=== PATIENT | male | born 1940 | race Caucasian/White ===

== ENCOUNTER 2020-07-05 10:20 | Outpatient (CLI) | payer MEDICARE, OTHER, SELFPAY ==
--- NOTE | 2020-07-05 | ECG_ITS ---
Measurements Intervals [place] Rate: 53 P: 37 PA: 221 QRS: -62 QRSD: 180 T: 118 QT: 486 QTc: 460 Interpretive Statements SINUS BRADYCARDIA WITH FIRST DEGREE AV BLOCK LEFT AXIS DEVIATION LEFT BUNDLE BRANCH BLOCK BASELINE ARTIFACT- II, III, V4-V6 ABNORMAL ECG Electronically Signed On 07-05-2020 11:35:02 CDT by Mario Alberto Farah D.O.
--- NOTE | ~2020-07-05 | XR_ITS ---
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 TECHNIQUE: Frontal and lateral views of the chest were obtained. COMPARISON: Chest 2 views 01/30/2015 FINDINGS: A calcified right lung nodule is consistent with old granulomatous disease. There is mild s carring at the lung apices. No pleural effusion or pneumothorax. The heart size is normal. IMPRESSION: 1. No evidence of metastatic disease. Reviewed, dictated and finalized at location A.
[2020-07-05 11:16] LABS: Basophils Absolute Auto 0.1 K/mm3 (0.0-0.1); Basophils Percent Auto 0.6 % (0.2-1.2); Eosinophils Absolute Auto 0.7 K/mm3 (0-0.3); Eosinophils Percent Auto 6.4 % (0-4.4); Hematocrit 33.1 % (42.0-52.0); Hemoglobin 10.5 g/dL (14.0-18.0); Immature Granulocyte Absolute 0.02 K/mm3 (0.00-0.031); Immature Granulocyte Percent A 0.2 % (0-0.5); Lymphocytes Absolute Auto 2.94 K/mm3 (0.9-3.2); Lymphocytes Percent Auto 25.7 % (18.3-44.2); Mean Corpuscular HGB Conc 31.7 g/dl (32-36); Mean Corpuscular Hemoglobin 29.3 pg (26-34); Mean Corpuscular Volume 92.5 fl (80-100); Mean Platelet Volume 10.5 fl (7.4-10.4); Monocytes Absolute Auto 0.9 K/mm3 (0.1-0.6); Monocytes Percent Auto 7.5 % (2.6-8.5); Neutrophils Absolute Auto 6.8 K/mm3 (1.3-6.7); Neutrophils Percent Auto 59.6 % (45.5-73.1); Platelet Count Result 219 k/mm3 (150-375); Red Blood Count 3.58 M/mm3 (4.6-6.20); Red Cell Distribution Width 14.4 % (11.5-14.5); White Blood Count 11.5 K/mm3 (4.5-10.0)
[2020-07-05 11:29] LABS: Alanine Aminotransferase 18 U/L (4-50); Albumin Level 3.7 g/dL (3.5-5.1); Alkaline Phosphatase 81 U/L (38-126); Anion Gap 6 mmol/L (8-16); Aspartate Amino Transferase 23 U/L (17-59); Bilirubin,Total 0.5 mg/dL (0.2-1.3); Blood Urea Nitrogen 39 mg/dL (9-20); Calcium 8.8 mg/dL (8.4-10.2); Carbon Dioxide 21 mmol/L (22-30); Chloride 111 mmol/L (98-107); Estimated Glomerular Filt Rate 30; Glucose 87 mg/dL (75-110); Sodium 138 mmol/L (137-145)
== END 2020-07-05 10:21 | disposition home or self-care (01) ==
PROVIDERS: PCP Emergency Medicine; Visit Provider Surgery
DX: C43.61 Malignant melanoma of right upper limb, including shoulder (principal); C43.9 Malignant melanoma of skin, unspecified; C77.9 Secondary and unspecified malignant neoplasm of lymph node, unspecified; R94.31 Abnormal electrocardiogram [ECG] [EKG]; I44.7 Left bundle-branch block, unspecified; I44.0 Atrioventricular block, first degree; R00.1 Bradycardia, unspecified
CPT/HCPCS: 36415; 71046; 80053; 85025; 93005

== ENCOUNTER 2021-10-01 14:29 | Outpatient (CLI) | payer MEDICARE, OTHER, SELFPAY ==
--- NOTE | ~2021-10-01 | XR_ITS ---
XR chest 2V 10/01/2021 15:16 Indication: Shortness of breath. Hypertension. Procedure: 2 view chest Comparison: Comparison to multiple prior studies sequentially, with oldest reviewed study dated 07/30. Findings: Heart size is normal. Right basilar airspace disease. Small right pleural effusion. Left monica ng clear. No pneumothorax. There are surgical changes in the right upper thorax. The lungs are hyperinflated which is consistent with, but not diagnostic of chronic obstructive pulmo nary disease. Impression: 1: Right basilar airspace disease which may represent atelectasis or pneumonia. 2: Small right pleural effusion. Reviewed, dictated and finalized at location B. RER CONSTRUCTION OR LEAK GANG Impression: 1: Right basilar airspace disease which may represent atelectasis or pneumonia. 2: Small right pleural effusion.
[2021-10-01 15:06] LABS: Basophils Absolute Auto 0.1 K/mm3 (0.0-0.1); Basophils Percent Auto 0.8 % (0.2-1.2); Eosinophils Absolute Auto 0.4 K/mm3 (0-0.3); Eosinophils Percent Auto 5.2 % (0-4.4); Hematocrit 28.9 % (42.0-52.0); Hemoglobin 8.9 g/dL (14.0-18.0); Immature Granulocyte Absolute 0.02 K/mm3 (0.00-0.031); Immature Granulocyte Percent A 0.3 % (0-0.5); Lymphocytes Absolute Auto 1.93 K/mm3 (0.9-3.2); Lymphocytes Percent Auto 26.5 % (18.3-44.2); Mean Corpuscular HGB Conc 30.8 g/dl (32-36); Mean Corpuscular Hemoglobin 28.9 pg (26-34); Mean Corpuscular Volume 93.8 fl (80-100); Mean Platelet Volume 10.1 fl (7.4-10.4); Monocytes Absolute Auto 0.7 K/mm3 (0.1-0.6); Monocytes Percent Auto 9.1 % (2.6-8.5); Neutrophils Absolute Auto 4.2 K/mm3 (1.3-6.7); Neutrophils Percent Auto 58.1 % (45.5-73.1); Platelet Count Result 264 k/mm3 (150-375); Red Blood Count 3.08 M/mm3 (4.6-6.20); Red Cell Distribution Width 16.4 % (11.5-14.5); White Blood Count 7.3 K/mm3 (4.5-10.0)
[2021-10-01 15:18] LABS: Alanine Aminotransferase 12 U/L (4-50); Albumin Level 3.1 g/dL (3.5-5.1); Alkaline Phosphatase 82 U/L (38-126); Anion Gap 5 mmol/L (8-16); Aspartate Amino Transferase 25 U/L (17-59); Bilirubin,Total 0.3 mg/dL (0.2-1.3); Blood Urea Nitrogen 13 mg/dL (9-20); Calcium 8.2 mg/dL (8.4-10.2); Carbon Dioxide 23 mmol/L (22-30); Chloride 106 mmol/L (98-107); Estimated Glomerular Filt Rate 53; Glucose 93 mg/dL (65-110); Potassium 3.9 mmol/L (3.4-5.0); Sodium 134 mmol/L (137-145)
== END 2021-10-01 14:30 | disposition home or self-care (01) ==
LOC: ANHLAB 14:38
PROVIDERS: PCP Emergency Medicine; Visit Provider Internal Medicine
DX: R06.02 Shortness of breath (principal); J90 Pleural effusion, not elsewhere classified; R91.8 Other nonspecific abnormal finding of lung field
CPT/HCPCS: 36415; 71046; 80053; 85025

== ENCOUNTER 2021-12-03 09:35 | Observation (INO) | payer MEDICARE, OTHER, SELFPAY ==
[2021-12-03] VITALS (21 sets, daily range): BP systolic 146–189; BP diastolic 61–90; PULSE 79–106; RESP 15–23; TEMP 36.7–37.3; O2SAT 94–100; BMI 23.5
--- NOTE | ~2021-12-03 | US_ITS ---
EXAMINATION: US venous doppler [facility] DATE: 12/04/2021 09:16 INDICATION: Lower limb edema. TECHNIQUE: Grayscale ultrasound images without and with compression and Doppler ultrasound images of the bilateral lower extremity veins were obtained. COMPARISON: None. FINDINGS: The visualized portions of right common femoral vein, profunda (deep) femoral vein, femoral vein, pop liteal vein, peroneal veins, posterior tibial veins, and greater saphenous vein outflow are patent. The visualized portions of left common femoral vein, profunda femoral vein, femoral vein, popliteal v ein, peroneal veins, posterior tibial veins, and greater saphenous vein outflow are patent. IMPRESSION: 1. No deep venous thrombosis. Reviewed, dictated and finalized at location E. L MEDICINE PHYSICIAN
--- NOTE | ~2021-12-03 | XR_ITS ---
EXAMINATION: XR chest 1V portable DATE: 12/03/2021 10:29 INDICATION: Shortness of breath. TECHNIQUE: A single frontal view of the chest was obtained. COMPARISON: Chest 2 views 10/01/2021, CT abdomen and pelvis 06/17/2009 FINDINGS: There is a diffuse interstitial pattern in the lungs. There is a small right pleural effusi on. No pneumothorax. The heart size is normal. There are surgical clips overlying right chest. IMPRESSION: 1. Diffuse interstitial pattern in the lungs, consistent with mild pulmonary edema versus atypical pn eumonia. 2. Stable small right pleural effusion. Reviewed, dictated and finalized at location E. EFIER IMPRESSION: 1. Diffuse interstitial pattern in the lungs, consistent with mild pulmonary ed jeff versus atypical pneumonia. 2. Stable small right pleural effusion.
--- NOTE | ~2021-12-03 | NM_ITS ---
EXAMINATION: NM vikki stress w perfusion DATE: 12/05/2021 12:18 INDICATION: Coronary artery disease with cardiomyopathy and elevated troponin. TECHNIQUE: Rest images were obtained following intravenous administration of 10.1 mCi Tc99m tetrofosm in (Myoview). The patient was infused intravenously with Lexiscan (Regadenoson). Then, 31.7 mCi Tc99m tetrofosmin (Myoview) was administered intravenously, and stress images were obtained in supine posi tion. Patient was unable to be imaged in the prone position. Data was reconstructed into short axis a nd horizontal and vertical long axis SPECT images. Gated SPECT images were also obtained. COMPARISON: None. FINDINGS: There is a large moderate severity fixed perfusion defect consistent with infarct involving the apical, apical septal, apical superior, apical inferior, mid anterior septal and mid posterior s eptal segments. No reversible ischemia. There left ventricular enlargement with calculated end-diasto lic volume of 225 mm. There is global hypokinesis and with more focal apical septal and apical inferi or dyskinesis. Left ventricular ejection fraction measures 22%. IMPRESSION: 1. Large moderate severity nonreversible infarct as detailed above involving primarily the left anter ior descending and right coronary artery vascular distributions. No reversible ischemia. 2. Left ventricular enlargement with global hypokinesis and focal dyskinesis at the infarcted region resulting in moderate to severely decreased left ventricular ejection fraction measuring 22%. Reviewed, dictated and finalized at location A. ENTICE CARPENTER IMPRESSION: 1. Large moderate severity nonreversible infarct as detailed above involving pr imarily the left anterior descending and right coronary artery vascular distrib utions. No reversible ischemia. 2. Left ventricular enlargement with global hypokinesis and focal dyskinesis at the infarcted region resulting in moderate to severely decreased left ventricu lar ejection fraction measuring 22%.
--- NOTE | ~2021-12-03 | US_ITS ---
EXAMINATION: US renal BI DATE: 12/04/2021 09:16 INDICATION: Acute on chronic renal failure. TECHNIQUE: Multiple ultrasound grayscale images of the kidneys were obtained. COMPARISON: CT abdomen and pelvis 06/17/2009 FINDINGS: The right kidney measures 12.5 x 5.2 x 6.6 cm. The left kidney measures 11.2 x 5.8 x 7.2 cm. Left kid naren demonstrates cortical thinning and increased parenchymal echogenicity. There are cysts in the kid neys measuring up to 4.9 cm on the left. There is no hydronephrosis. The bladder is decompressed. IMPRESSION: 1. Chronic severe atrophy of left kidney. No hydronephrosis. Reviewed, dictated and finalized at location E. ACTOR AND WRINGER OPERATOR
--- NOTE | ~2021-12-03 | NM_ITS ---
EXAMINATION: NM pulmonary perfusion DATE: 12/03/2021 12:52 INDICATION: Shortness of breath. TECHNIQUE: 5.2 mCi Tc-99m MAA by intravenous route. Scintigraphic images of the chest were obtained. COMPARISON: Chest radiograph dated 10/01/2021 FINDINGS: There are moderate-sized perfusion defects without corresponding radiographic opacities involving the right anterior segment of the upper lobe and the apical segments of the bilateral upper lobes. Small perfusion defect with corresponding radiographic opacity at the posterior basal segment of the right lower lobe. IMPRESSION: 1. Intermediate probability for pulmonary embolism. Reviewed, dictated and finalized at location A. OTIST OR PROSTHETIST
--- NOTE | 2021-12-03 09:43 | ECG_ITS ---
Measurements Intervals [place] Rate: 99 P: 196 CO: 107 QRS: -41 QRSD: 185 T: 143 QT: 446 QTc: 575 Interpretive Statements SINUS OR ECTOPIC ATRIAL TACHYCARDIA LEFT AXIS DEVIATION LEFT BUNDLE BRANCH BLOCK BASELINE WANDER- II, III, AVR, AVL, AVF, V4-V6 ABNORMAL ECG Electronically Signed On 12-03-2021 10:00:[address] STENOGRAPHER by Mario Alberto Farah D.O.
--- NOTE | 2021-12-03 10:17 | ED.GENADULT ---
HPI - General Adult General Chief complaint: Shortness of Breath/Dyspnea Stated complaint: SOB Time Seen by Provider: 12/03/21 10:14 Source: patient and RN notes reviewed History of Present Illness HPI narrative: Patient is a 81 y/o male complaining of SOB for at least 2 weeks. He states that his SOB is severe and get worse with walking or any exertion. He has a cough. He has no fever or chest pain. He states that he was diagnosed with pneumonia and treated with outpatient antibiotics for 1 week. He has not been vaccinated against COVID. He smokes daily. Per EMS, his pulse ox was 82% and he was placed on NRB. Related Data Allergies Allergy/AdvReac Type Severity Reaction Status Date / Time No Known Allergies Allergy Mild Verified 12/03/21 11:25 Review of Systems Constitutional: Constitutional: Denies chills, Denies fever(s), Denies headache(s) and Denies weakness Eyes: Eyes: Denies blurry vision ENT: Denies headache(s) and Denies neck pain Cardiovascular: Cardiovascular: Denies chest pain and Reports dyspnea Respiratory: Respiratory: Reports cough and Reports dyspnea Gastrointestinal: Gastrointestinal: Denies abdominal pain, Denies diarrhea, Denies nausea and Denies vomiting Genitourinary: Genitourinary: Denies hematuria and Denies dysuria Musculoskeletal: Musculoskeletal: Denies back pain and Denies neck pain Neurologic: Denies headache(s) and Denies weakness PMFSH Past Medical History Medical History (Updated 12/03/21 @ 16:42 by Desirae Post MD) 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 CHF (congestive heart failure), NYHA class I History of CVA (cerebrovascular accident) Hypertension Hypothyroidism Surgical History Surgical History (Updated 12/03/21 @ 13:34 by Usha Melgar NP) History of coronary artery stent placement History of femoropopliteal bypass Total knee replacement status Family History Family History (Updated 12/03/21 @ 13:35 by Usha Melgar NP) Mother Parkinson disease type 9 Father Lung disease Social History Social History (Updated 12/03/21 @ 13:36 by Usha Melgar NP) Social History: 2 c 1/2 ppd retconstr concre Smoking status: Current some day smoker Exam Const: General: no acute distress and well developed Orientation/consciousness: oriented to person, oriented to place, oriented to time and patient oriented x3 HENMT: Head: normocephalic Ears: external ears normal General nose exam: Normal external nose present Eyes: General: appearance normal, both eyes and all related structures Conjunctivae: conjunctivae normal Neck: Neck: normal visual inspection and full ROM Chest: Chest palpation & inspection: normal inspection of the chest and no tenderness Resp: Effort & Inspection: normal respiratory effort Auscultation: clear to auscultation bilaterally Cardio: Rate: regular rate Rhythm: regular rhythm GI: GI Palp: No abdominal tenderness and Yes Soft to palpation Skin: General skin exam: normal color and turgor normal Neuro: General: oriented to person, oriented to place, oriented to time and patient oriented x3 Cognition (Neuro): normal cognition Extrem: General: normal to inspection, full ROM and no pedal edema Psych: Appearance: grossly normal Mental Status: mental status grossly normal Affect: normal affect Course Consultations Consultation #1: Discussed with GUY Kerr, who agrees to admit. Date: 12/03/21 Time: 13:27 Consultation #2: Discussed with Dr. Hernandes, who agrees to consult. She recommends Lovenox 1mg/kg x 1 dose. Date: 12/03/21 Time: 13:58 Vital Signs Vital signs: Vital Signs Temperature 36.8 C 12/03/21 09:44 Pulse Rate 106 H 12/03/21 09:44 Respiratory Rate 23 H 12/03/21 09:44 Blood Pressure 189/90 H 12/03/21 09:44 Pulse Oximetry 96 12/03/21 09:44 Temperature 36.7 C 12/03/21 13:49 Pulse Rate 87 12/03/21 13:49 Respiratory Rate 18 12/03/21 13:49 Blood
[2021-12-03 10:35] LABS: Basophils Percent Auto 0.3 % (0.2-1.2); Eosinophils Absolute Auto 0.3 K/mm3 (0-0.3); Hematocrit 35.6 % (42.0-52.0); Hemoglobin 10.8 g/dL (14.0-18.0); Immature Granulocyte Absolute 0.05 K/mm3 (0.00-0.031); Immature Granulocyte Percent A 0.5 % (0-0.5); Lymphocytes Absolute Auto 1.81 K/mm3 (0.9-3.2); Lymphocytes Percent Auto 16.4 % (18.3-44.2); Mean Corpuscular HGB Conc 30.3 g/dl (32-36); Mean Corpuscular Hemoglobin 26.2 pg (26-34); Mean Corpuscular Volume 86.4 fl (80-100); Mean Platelet Volume 11.2 fl (7.4-10.4); Monocytes Absolute Auto 0.3 K/mm3 (0.1-0.6); Monocytes Percent Auto 3.1 % (2.6-8.5); Neutrophils Absolute Auto 8.5 K/mm3 (1.3-6.7); Neutrophils Percent Auto 76.7 % (45.5-73.1); Platelet Count Result 188 k/mm3 (150-375); Red Blood Count 4.12 M/mm3 (4.6-6.20)
[2021-12-03 10:47] LABS: Base Excess ABG -6.1 mEq/l (+/-2.0); Device NON-REBREATHER MASK; Fractional Inspired Oxygen 100 %; HCO3 ABG 19.9 mEq/l (22.0-26.0); Modified Allen's Test Pass; Oxygen Saturation ABG 97.7 % (95.0-100.0); Oxyhemoglobin 96.5 % THb (90.0-100.0); PCO2 ABG 41.3 mmHg (35.0-45.0); PO2 ABG 111.7 mmHg (80.0-100.0); PO2 FiO2 Ratio Arterial Blood 1.12 %; Site Drawn LEFT RADIAL; Total Hemoglobin 11.7 g/dL (12.0-18.0); pH ABG 7.301 (7.350-7.450)
[2021-12-03 10:54] LABS: D Dimer 2.69 ug/mL (<0.48)
[2021-12-03 11:15] LABS: NT Pro B Type Natriuretic Pept 9510 pg/mL (5-100); Troponin I 0.146 ng/mL (0.000-0.034)
[2021-12-03 11:20] LABS: SARS-CoV-2 RNA PCR Negative
[2021-12-03 11:55] LABS: Alanine Aminotransferase 13 U/L (4-50); Albumin Level 3.4 g/dL (3.5-5.1); Alkaline Phosphatase 89 U/L (38-126); Anion Gap 7 mmol/L (8-16); Aspartate Amino Transferase 27 U/L (17-59); Bilirubin,Total 0.3 mg/dL (0.2-1.3); Blood Urea Nitrogen 17 mg/dL (9-20); Calcium 8.8 mg/dL (8.4-10.2); Carbon Dioxide 21 mmol/L (22-30); Chloride 111 mmol/L (98-107); Estimated CRCL calculation 30 ml/min; Estimated Glomerular Filt Rate 39; Glucose 208 mg/dL (65-110); Potassium 3.8 mmol/L (3.4-5.0); Sodium 139 mmol/L (137-145)
[2021-12-03] MEDS: FUROSEMIDE INJ 40 MG/4 ML VIAL IV PUSH (12:47)
--- NOTE | 2021-12-03 13:29 | PM.IMHP ---
H&P: HPI History of Present Illness Date/Time: 12/03/21 13:29 this is an 81-year-old male patient who has been complaining about shortness of breath that has gotten worse over the last 2 weeks. It gets more severe when he ambulates. He has no fever chest pain. The patient was treated with antibiotics a week ago for a diagnosis of pneumonia. The patient has not been vaccinated against COVID-19. The patient continues to smoke daily. Per EMS his pulse ox was 82% he was placed on a non-rebreather. Patient is on a nasal cannula when I assessed him in the emergency room. He is very hard of hearing and having difficulty answering the questions at times. He is negative for COVID-19. Chest x-ray was read as diffuse interstitial pattern in the lungs consistent with mild pulmonary edema versus atypical pneumonia. Stable right pleural effusion. Pulmonary perfusion imaging was read as intermediate probability for pulmonary embolism. His BMP is 9510. Troponin 0.146 with a repeat of 1.170. D-dimers 2.69. The patient was given IV Lasix and Lovenox in the emergency room. Creatinine is 1.7. His baseline is somewhere between 1.3 and 2.1. Blood glucose was 208. 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 He has 2 children. He continues to smoke 1/2 ppd. he worked in [employer]. He denies any alcohol marijuana or illicit drugs. He denies any power title attorney for healthcare. Code status full code Years smoked: 78 Smoking status: Current some day smoker Tobacco type: cigarettes Alcohol intake: current Drinks per week: 6 Substance use: never Spiritual care concerns: No Meds Home Medications and Allergies Allergies Allergy/AdvReac Type Severity Reaction Status Date / Time No Known Allergies Allergy Mild Verified 12/03/21 11:25 Vital Signs Vital Signs - 24 hr 12/03/21 09:44 12/03/21 09:46 12/03/21 10:10 Temperature 36.8 C Pulse Rate 106 H 105 H Respiratory Rate 23 H 23 H Blood Pressure 189/90 H 189/80 H Pulse Oximetry 96 100 100 12/03/21 10:15 12/03/21 10:31 12/03/21 10:35 Temperature Pulse Rate 97 95 Respiratory Rate 18 21 H Blood Pressure 146/64 H Pulse Oximetry 100 100 100 12/03/21 10:50 12/03/21 11:01 12/03/21 11:05 Temperature Pulse Rate 90 Respiratory Rate 15 Blood Pressure 153/62 H Pulse Oximetry 99 97 97 12/03/21 11:16 12/03/21 11:46 12/03/21 11:56 Temperature Pulse Rate 85 86 Respiratory Rate 18 16 Blood Pressure 152/68 H 146/61 H Pulse Oximetry 95 96 94 12/03/21 12:53 12/03/21 13:05 Temperature Pulse Rate Respiratory Rate Blood Pressure Pulse Oximetry 96 98 Exam Const: General: cooperative, comfortable, no acute distress, well developed, alert, awake and Physically active Nutritiona
--- NOTE | 2021-12-03 14:00 | PC.NURSE ---
patient states he is hungry. patient informed he has a diet order and i can order a tray of food or provide a snack. patient requests snack. snack provided.
[2021-12-03] MEDS: ENOXAPARIN 80 MG/0.8 ML SYRINGE SUB-Q (14:06)
--- NOTE | 2021-12-03 18:20 | ADMGEN ---
This patient, Angel Venegas, was admitted to IMU Room 206-02. Patient/family oriented to hospital policies and general routines including ID bracelet, bed and alarms, visiting hours, pain management, procedures, bathroom and other care routines, personal items, smoking policy, room service/diet, and visiting hours. Information on how to activate the Rapid Response Team has been discussed. Patient/Family are encouraged to report perceived risks to care and to ask questions if they do not understand what they are told or what they should do.
--- NOTE | 2021-12-03 18:34 | PM.CNCAR ---
Assessment and Plan Assessment and plan (1) Elevated troponin: Code(s): R77.8 - Other specified abnormalities of plasma proteins Status: Acute Assessment and Plan: Patient was found to have elevated troponins, with no chest pain. EKG is uninterpretable due to chronic left bundle branch block andthere ws no chest discomfort. It has been progressively worsening. I suspect the elevated troponins are nonischemic myocardial injury from the patient's hypoxia superimposed on chronic coronary artery disease, though ACS cannot be excluded. Will follow clinically. Started on Lovenox for possible ACS and also indeterminate V/Q scan. Add Aspirin and statin. (2) Acute diastolic CHF (congestive heart failure): Code(s): I50.31 - Acute diastolic (congestive) heart failure Status: Acute Assessment and Plan: Patient has acute CHF, presumably diastolic. Does not look volume overloaded, though CXR shows PVC. Received 1 dose of Lasix in the emergency room. Will give one more in a.m. BMP in a.m. Echo pending. (3) CAD (coronary artery disease): Code(s): I25.10 - Atherosclerotic heart disease of [place] coronary artery without angina pectoris Status: Inactive Assessment and Plan: Remote coronary stent. No angina. However not on any home medications either. Recommend adding at least aspirin and a statin. (4) Acute respiratory failure with hypoxia: Code(s): J96.01 - Acute respiratory failure with hypoxia Status: Acute Assessment and Plan: Likely has COPD as well as CHF. (5) Atherosclerotic vascular disease: Code(s): I70.90 - Unspecified atherosclerosis Status: Acute Assessment and Plan: Patient has poly vascular disease with carotid occlusion and stroke, coronary artery disease and peripheral vascular disease. Intact distal pulses. Apparently is not on any home medications. Add aspirin and statin. History of Present Illness History of Present Illness Consult date/time: 12/03/21 18:34 Requesting physician: Tyrese Del Valle MD Consult reason: congestive heart failure Reason For Visit: CHF Narrative: Angel Venegas is an 81-year-old white male whom I was asked to see at the request of Dr. Del Valle and Dr. Post for my advice and opinion regarding his CHF and elevated troponins in consultation. He has a history of CHF, coronary artery disease (coronary stent 20 years ago), bypass of the right lower extremity, history of stroke, 100% occlusion of the left carotid artery, type 2 diabetes, CKD stage IIIB, hypertension. (Patient denies any history of CHF or stroke). The patient apparently has been short of breath for 2 -3 weeks with a mild dry cough. He as diagnosed as pneumonia 1 week ago and prescribed antibiotics. His breathing worsened and he woke up with severe shortness of breath this morning. No chest pain, no edema. His O2 sat was 82% on admission. Troponins have gone up to 2.3. ProBNP 9500. COVID RNA test was negative. No past records available in [facility] or Care Everywhere. Patient cannot name his doctor, but sees a cancer doctor in [place] for his melanoma.. Review of Systems Constitutional: Constitutional: Reports fatigue and Reports weakness Eyes: Eyes: Reports no additional eye complaints ENT: Denies epistaxis Cardiovascular: Cardiovascular: Denies chest pain, Denies pedal edema, Denies leg edema, Denies lightheadedness and Denies palpitations Respiratory: Respiratory: Reports cough, Reports dyspnea and Reports dyspnea on exertion Gastrointestinal: Gastrointestinal: Denies abdominal pain and Denies nausea Genitourinary: Genitourinary: Denies dysuria Musculoskeletal: Musculoskeletal: Reports arthralgias and Reports stiffness Comments: Difficulty walking Integumentary/Breasts: Skin/Breast: Denies rash Neurologic: Reports system reviewed and no additional complaints, except as documented Psychiatric: Psychiatric: Denies beh
[2021-12-03 20:52] LABS: Glucose Point of Care 98 mg/dl (65-105)
[2021-12-03] MEDS: ASPIRIN 81 MG CHEWABLE TABLET PO (21:19)
[2021-12-04] VITALS (16 sets, daily range): BP systolic 130–173; BP diastolic 68–76; PULSE 61–88; RESP 12–20; TEMP 36.3–37.2; O2SAT 95–99
[2021-12-04 05:22] LABS: Basophils Absolute Auto 0.1 K/mm3 (0.0-0.1); Basophils Percent Auto 0.6 % (0.2-1.2); Eosinophils Absolute Auto 0.8 K/mm3 (0-0.3); Eosinophils Percent Auto 9.1 % (0-4.4); Hematocrit 31.7 % (42.0-52.0); Hemoglobin 9.7 g/dL (14.0-18.0); Immature Granulocyte Absolute 0.03 K/mm3 (0.00-0.031); Immature Granulocyte Percent A 0.3 % (0-0.5); Lymphocytes Absolute Auto 2.04 K/mm3 (0.9-3.2); Lymphocytes Percent Auto 22.5 % (18.3-44.2); Mean Corpuscular HGB Conc 30.6 g/dl (32-36); Mean Corpuscular Hemoglobin 26.3 pg (26-34); Mean Corpuscular Volume 85.9 fl (80-100); Mean Platelet Volume 11.2 fl (7.4-10.4); Monocytes Absolute Auto 0.8 K/mm3 (0.1-0.6); Monocytes Percent Auto 8.5 % (2.6-8.5); Neutrophils Absolute Auto 5.4 K/mm3 (1.3-6.7); Platelet Count Result 185 k/mm3 (150-375); Red Blood Count 3.69 M/mm3 (4.6-6.20); Red Cell Distribution Width 16.1 % (11.5-14.5); White Blood Count 9.1 K/mm3 (4.5-10.0)
[2021-12-04 05:29] LABS: Hemoglobin A1C 5.3 % (<5.7)
[2021-12-04 05:32] LABS: Lactic Acid Reflex 0.9 mmol/L (0.7-2.1)
[2021-12-04 05:34] LABS: Alanine Aminotransferase 10 U/L (4-50); Albumin Level 3.2 g/dL (3.5-5.1); Alkaline Phosphatase 73 U/L (38-126); Anion Gap 3 mmol/L (8-16); Aspartate Amino Transferase 27 U/L (17-59); Bilirubin,Total 0.5 mg/dL (0.2-1.3); Blood Urea Nitrogen 18 mg/dL (9-20); CRP 2.2 mg/dL (<1.0); Calcium 8.5 mg/dL (8.4-10.2); Carbon Dioxide 26 mmol/L (22-30); Chloride 109 mmol/L (98-107); Estimated CRCL calculation 27 ml/min; Estimated Glomerular Filt Rate 34; Glucose 80 mg/dL (65-110); Lactate Dehydrogenase 433 U/L (313-618); Magnesium 1.7 mg/dL (1.6-2.3); Potassium 3.7 mmol/L (3.4-5.0); Sodium 138 mmol/L (137-145)
--- NOTE | 2021-12-04 05:38 | ECG_ITS ---
Measurements Intervals [place] Rate: 84 P: 73 GA: 221 QRS: -57 QRSD: 176 T: 134 QT: 464 QTc: 550 Interpretive Statements SINUS RHYTHM WITH FIRST DEGREE AV BLOCK LEFT AXIS DEVIATION LEFT BUNDLE BRANCH BLOCK ABNORMAL ECG Electronically Signed On 12-04-2021 7:32:39 DISSOLVER OPERATOR by Mario Alberto Farah D.O.
--- NOTE | 2021-12-04 06:00 | ECHO_ITS ---
Patient Info Name: Angel Venegas Age: 81 years : 1940 Gender: Male Ht: 69 in Wt: 156 lbs BSA: 1.86 m2 HR: 85 bpm BP: 161 / 76 mmHg Exam Date: 12/04/2021 8:24 AM Exam Location: [facility] Patient Status: Outpatient Admit Date: 12/03/2021 Staff Ordering Physician: Desirae Post MD Exhaust Worker: Jamie Parker RDCS, RT Attending Provider: Tyrese Del Valle MD Referring Physician: Sincere MCCRACKEN; Exam Type: CA echo doppler color flow Study Info Indications I50.9 - Heart failure, unspecified Complete two-dimensional, color flow and Doppler transthoracic echocardiogram is performed. Strain analysis performed. Summary 1. Complete two-dimensional, color flow and Doppler transthoracic echocardiogram is performed. 2. Left ventricular systolic function is severely reduced, estimated at 20-25%. 3. Left ventricular chamber dimension is mildly enlarged. 4. There is mildly increased left ventricular wall thickness. 5. There is mild aortic valve sclerosis. 6. There is mild mitral valve regurgitation. 7. There is mild to moderate tricuspid valve regurgitation. 8. RVSP 68 mmHg. Left Ventricle Left ventricular chamber dimension is mildly enlarged. Left ventricular systolic function is severely reduced, estimated at 20-25%. There is mildly increased left ventricular wall thickness. The left ventricular diastolic function is abnormal. Global longitudinal strain is abnormal at -6 %. Right Ventricle Right ventricular chamber dimension is normal. Right ventricular systolic function is normal. Left Atria Left atrial chamber dimension is normal. Right Atria Right atrial chamber dimension is normal. Atrial Septum Intact interatrial septum visualized by color flow imaging. Aortic Valve The aortic valve is trileaflet. There is mild aortic valve sclerosis. There is no aortic valve stenosis. There is no aortic valve regurgitation. Pulmonic Valve The pulmonic valve is not well visualized. There is no pulmonic valve stenosis. There is no pulmonic regurgitation. Mitral Valve There is no mitral valve stenosis. There is mild mitral valve regurgitation. There is mild mitral valve calcification. Tricuspid Valve The tricuspid valve leaflets are normal. There is no significant tricuspid valve stenosis. There is mild to moderate tricuspid valve regurgitation. Pericardium/Pleural There is small pericardial effusion. Inferior Vena Cava Normal inferior vena cava with <50% collapse upon inspiration consistent with Empty right atrial pressure, 10 mmHg. Aorta The aortic root size at the sinus of Valsalva is normal. Left Ventricular Outflow Tract Name Value Normal LVOT 2D LVOT Diameter 2.0 cm LVOT Doppler LVOT Peak Gradient 2 mmHg LVOT Mean Gradient 1 mmHg LVOT VTI 13 cm LVOT VTI/AV VTI Ratio 0.8 LVOT Stroke Volume 40 ml LVOT CO 3.4 l/min LVOT CI 1.8 l/min/m2
[2021-12-04] MEDS: LEVOTHYROXINE SODIUM 75 MCG TABLET PO (06:16)
[2021-12-04 09:05] LABS: Glucose Point of Care 82 mg/dl (65-105)
[2021-12-04] MEDS: VITAMIN B COMPLEX CAPSULE 1 CAP BY MOUTH (10:00)
[2021-12-04] MEDS: lisinopriL 5 MG TABLET PO (10:00)
[2021-12-04] MEDS: FERROUS SULFATE 324 MG TABLET PO (10:00)
[2021-12-04] MEDS: FUROSEMIDE INJ 40 MG/4 ML VIAL IV PUSH (10:00)
[2021-12-04] MEDS: ATORVASTATIN 40 MG TABLET PO (10:00)
[2021-12-04] MEDS: ASPIRIN 81 MG CHEWABLE TABLET PO (10:00)
[2021-12-04] MEDS: RIVAROXABAN 15 MG TABLET PO (10:02)
--- NOTE | 2021-12-04 11:31 | PM.IMPN ---
Progress Note: A&P Assessment and Plan (1) Acute respiratory failure with hypoxia: Code(s): J96.01 - Acute respiratory failure with hypoxia Status: Acute Assessment and Plan: The patient does have a history of congestive heart failure. Patient initially was placed on a non-rebreather mask but easily weaned to 2 L per nasal cannula. The patient was given Lasix and an aspirin in the ED. The patient's troponin is also elevated as well. Patient has been receiving intermittent doses of Lasix with good response. His SOB/QUIROGA much improved. He is requesting discharge. Suspect respiratory failure related to CHF. He is currently on room air. (2) CHF (congestive heart failure), NYHA class I: Code(s): I50.9 - Heart failure, unspecified Status: Chronic Assessment and Plan: Patient presents with 2 week hx of SOB. CXR showing diffuse interstitial pattern in the lungs. BNP 9510. Echo showing EF 20-25% with mild valvular disease and diastolic dysfunction and elevated RVSP consistent with pulmonary HTN. He is receiving IV Lasix intermittently. His lung exam improved. He is on Lisinopril. Will add Coreg and monitor for wheezing. Cardiology following and appreciate thier input. (3) Elevated troponin: Code(s): R77.8 - Other specified abnormalities of plasma proteins Status: Acute Assessment and Plan: Troponin elevated to 2.25 and now trending down. EKG shows left bundle branch block with left axis deviation. Bundle branch block is chronic. Echo as mentioned above. Continue medical management. Concerning for ischemic etiology of his low EF in symptoms. Cardiology following appreciate their input. (4) Pulmonary emboli: Code(s): I26.99 - Other pulmonary embolism without acute cor pulmonale Status: Acute Assessment and Plan: Patient presents with SOB. Pulmonary perfusion study showing intermediate probability for PE. He was on Xarelto on admission which was continued (will renally dose). LE venous dopplers negative for DVT. Clinically better with treatment with Lasix and EF 20% so feel overall PE less likely. PE ruled out. (5) Chronic renal failure, stage 3b: Code(s): N18.32 - Chronic kidney disease, stage 3b Status: Chronic Assessment and Plan: Patient's creatinine is 1.7 on admission. A month ago, Cr was 1.3 and was 2.10 in 2015. Renal US showing severe atrophic left kidney. Cr 1.9 today and probably within his baseline. Will follow. (6) CAD (coronary artery disease): Code(s): I25.10 - Atherosclerotic heart disease of [place] coronary artery without angina pectoris Status: Acute Assessment and Plan: In 2015, Lexiscan stress test showing a large areas of severe infarct involving inferior wall, apex, and apical septal, mid anteroseptal, and mid inferoseptal segments of left ventricle as well as septal hypokinesis with EF 58%. Only on Lisinopril on admission. ASA resumed and Lipitor added. Add betabloker. (7) DM2 (diabetes mellitus, type 2): Code(s): E11.9 - Type 2 diabetes mellitus without complications Status: Chronic Assessment and Plan: A1c 5.3. The patient's blood glucose was reviewed on 2/3 Patient is diet-controlled diabetic. Glucose remains well controlled. Continue AccuCheks covering with sliding scale. Hypoglycemia protocol available as needed. Continue to monitor. (8) Hypertension: Code(s): I10 - Essential (primary) hypertension Status: Chronic Assessment and Plan: Patient's blood pressure was reviewed on 23 Blood pressure remains elevated. Will continue current medications. (9) Atherosclerotic vascular disease: Code(s): I70.90 - Unspecified atherosclerosis Status: Acute Assessment and Plan: Patient with known PAD with chronic occlusion of the left ICA. ASA resumed and Lipitor added. (10) Hypothyroidism: Code(s): E03.9 - Hypothyro
[2021-12-04 12:24] LABS: Glucose Point of Care 161 mg/dl (65-105)
--- NOTE | 2021-12-04 13:12 | PM.PNCARD ---
Progress Note: A&P Assessment and Plan (1) Elevated troponin: Code(s): R77.8 - Other specified abnormalities of plasma proteins Status: Acute Assessment and Plan: Patient was found to have elevated troponins, with no chest pain. EKG is uninterpretable due to chronic left bundle branch block and there ws no chest discomfort. It has been progressively worsening. I suspect the elevated troponins are nonischemic myocardial injury from the patient's hypoxia superimposed on chronic coronary artery disease, though ACS cannot be excluded. Will follow clinically. Started on Lovenox for possible ACS and also indeterminate V/Q scan. Added Aspirin and statin. Pt's Adrienne 2014 showed large areas of infarction but nml EF 58%. Now EF 20-25%. Rec ischemia evaluation. Access by cath may be difficult due to vascular disease; sounds like cath 2005 was done via the brachial approach. Also pt's GFR is 34, so at risk for complications w/ cath. Will order Adrienne for tmr. If significant ischemia, consider cath. (2) Acute combined systolic and diastolic congestive heart failure: Code(s): I50.41 - Acute combined systolic (congestive) and diastolic (congestive) heart failure Status: Acute Assessment and Plan: Patient has acute systolic CHF, no (known) prior history. Improved after 2 doses furosemide IVP on low-dose lisinopril; let's see if he can tolerate Entreso instead. Coreg 3.125 mg BID started. Add spironolactone later if pt tolerates Entresto? Ischemic cardiomyopathy; May be related to old [place]'s r/o new ischemia. (3) CAD (coronary artery disease): Code(s): I25.10 - Atherosclerotic heart disease of [place] coronary artery without angina pectoris Status: Acute Assessment and Plan: Remote coronary stent. No angina. Added ASA, statin; cont carvedilol etc. Previously was seen by Dr. Bowers but pt has not followed up. (4) Acute respiratory failure with hypoxia: Code(s): J96.01 - Acute respiratory failure with hypoxia Status: Acute Assessment and Plan: Likely has COPD as well as CHF. (5) Atherosclerotic vascular disease: Code(s): I70.90 - Unspecified atherosclerosis Status: Acute Assessment and Plan: Patient has poly vascular disease with carotid occlusion and stroke, coronary artery disease and peripheral vascular disease. Intact distal pulses. He is taking Xarelto for uncertain reasons. May be a candidate for low-dose Xarelto 2.5 mg BID + ASA, depending on Xarelto indication. Will see f we can find any old records. Added aspirin and statin. Subjective Date/time seen: 12/04/21 13:12 Interval history: Patient admitted with congestive heart failure. EF 2014 was 58% but is now 20-25%. History of CAD, stent around 2005. Troponins up to 2.3. No chest pain. Peripheral vascular disease s/p RLE bypass, carotid disease. Patient takes Xarelto 20 mg daily--he's not sure why. 12/03/2021 Initial Consultation: Acute systolic heart failure, agreed with diuresis. Elevated troponins, possibly nonischemic myocardial injury due to hypoxemia on chronic CAD though ACS cannot be excluded. Progressive QUIROGA over the last 2 or 3 weeks and lack of anginal sx is more suggestive of CHF rather than ACS. REcomended lovenox for a couple of days, and I added aspirin and statin. Smoker, has stable COPD. : Feeling better, off O2, chronic SOB, no edema or CP. 2015 Lexiscan: Large areas of severe infarct involving the inferior wall, apex, apical septal, mid anteroseptal and mid inferior septal segments, EF 58%. EKG 12/04/2021 at 6:35 a.m. shows NSR rate 84, first-degree AV block, LBBB (chronic) Review of Systems Constitutional: Constitutional: Reports weakness Eyes: Eyes: Reports no additional eye complaints ENT: Denies epistaxis Cardiovascular: Cardiovascular: Denies chest pain, Denies pedal edema and Denies leg edema Respiratory: Respirator
--- NOTE | 2021-12-04 13:29 | PCDIET ---
Pt screened in for MST 4. Per EMR, pt is unsure of unintentional wt loss, unsure of how much, and does not have a decrease appetite. Visited with pt who reports that he is unsure of wt loss but may have lost approximately 4-5lbs but is unsure of time frame. No past weight reported in EMR. Current nutrition is a heart healthy diet with reported intake of 100%. Pt reports that he doesn't have any problems swallowing but will sometimes have problems with chewing as he is missing teeth. RDN placed orders for Frozen Nutritional Treat ONCE PER DAY to provide an additional 300kcal and 9g of protein. Pt is tolerating current diet with adequate intake. No wt loss reported at this time. Agree with diet orders at this time. No nutritional intervention at this time. Will follow up in 7 days.
[2021-12-04] MEDS: carvediloL 3.125 MG TABLET PO ×2 (13:38→20:50)
[2021-12-04 16:20] LABS: Glucose Point of Care 106 mg/dl (65-105)
[2021-12-04 21:08] LABS: Glucose Point of Care 111 mg/dl (65-105)
[2021-12-05] VITALS (12 sets, daily range): BP systolic 136–160; BP diastolic 61–79; PULSE 62–79; RESP 14–20; TEMP 36.3–36.6; O2SAT 98–99
--- NOTE | 2021-12-05 00:01 | EST_ITS ---
Patient Info Name: Angel Venegas Age: 81 years : 1940 Gender: Male Ht: 69 in Wt: 156 lbs BSA: 1.86 m2 HR: 71 bpm BP: 154 / 84 mmHg Heart Rhythm: Sinus Rhythm Exam Date: 12/05/2021 10:07 AM Exam Location: [facility] Patient Status: Outpatient Admit Date: 12/03/2021 Staff Ordering Physician: Isabelle Hernandes MD Attending Provider: Tyrese Del Valle MD Exercise Technologist: Allison Boston, [place] Nurse: BRITTNEY LARSEN Exam Type: [facility] stress vikki w NM Study Info Indications - CHEST PAIN A regadenoson stress test was performed. Summary 1. Normal sinus rhythm. 2. Left bundle branch block. 3. Non-diagnostic ECG due to left bundle branch block. 4. Clinically uneventful but nondiagnostic Lexiscan stress test because of left bundle branch block. 5. Myocardial perfusion imaging exam to be dictated by the Radiology Department. Protocol: Lexiscan Stress ECG Details Stage: REST Duration (min): 2 min : 51 sec HR (bpm): 70 SBP (mmHg): 157 DBP (mmHg): 78 Stage: REST Duration (min): 3 min : 35 sec HR (bpm): 72 SBP (mmHg): 154 DBP (mmHg): 84 Stage: REST Duration (min): 8 min : 7 sec HR (bpm): 71 SBP (mmHg): 154 DBP (mmHg): 84 Stage: STAGE 1 Duration (min): 1 min : 0 sec HR (bpm): 64 SBP (mmHg): 163 DBP (mmHg): 87 Stage: RECOVERY Duration (min): 1 min : 0 sec HR (bpm): 85 SBP (mmHg): 163 DBP (mmHg): 87 Stage: RECOVERY Duration (min): 2 min : 0 sec HR (bpm): 87 SBP (mmHg): 163 DBP (mmHg): 87 Stage: RECOVERY Duration (min): 3 min : 0 sec HR (bpm): 80 SBP (mmHg): 172 DBP (mmHg): 72 Stage: RECOVERY Duration (min): 3 min : 9 sec HR (bpm): 81 SBP (mmHg): 172 DBP (mmHg): 72 Rest HR: 71 bpm Peak HR: 87 bpm Rest Sys BP: 154 mmHg Peak Sys BP: 172 mmHg Max Pred HR: 138 bpm % Max Pred HR: 63 % Target HR: 117 bpm Max RPP: 14,964 bpm*mmHg Total Time: 1 min : 0 sec Rest Godoy BP: 84 mmHg Peak Godoy BP: 72 mmHg Total Dose: 0.4 mg Resting ECG Normal sinus rhythm. Left bundle branch block. Stress ECG Non-diagnostic ECG due to left bundle branch block. Report Signatures
[2021-12-05] MEDS: LEVOTHYROXINE SODIUM 75 MCG TABLET PO (05:50)
[2021-12-05 05:59] LABS: Hematocrit 32.9 % (42.0-52.0); Hemoglobin 10.3 g/dL (14.0-18.0); Mean Corpuscular HGB Conc 31.3 g/dl (32-36); Mean Corpuscular Hemoglobin 26.8 pg (26-34); Mean Corpuscular Volume 85.5 fl (80-100); Mean Platelet Volume 11.6 fl (7.4-10.4); Platelet Count Result 207 k/mm3 (150-375); Red Blood Count 3.85 M/mm3 (4.6-6.20); Red Cell Distribution Width 16.3 % (11.5-14.5); White Blood Count 9.6 K/mm3 (4.5-10.0)
[2021-12-05 06:11] LABS: Albumin Level 3.1 g/dL (3.5-5.1); Anion Gap 3 mmol/L (8-16); Blood Urea Nitrogen 20 mg/dL (9-20); Calcium 8.2 mg/dL (8.4-10.2); Carbon Dioxide 27 mmol/L (22-30); Chloride 105 mmol/L (98-107); Estimated CRCL calculation 27 ml/min; Estimated Glomerular Filt Rate 34; Glucose 76 mg/dL (65-110); Magnesium 1.7 mg/dL (1.6-2.3); Phosphorus 3.9 mg/dL (2.5-4.5); Potassium 3.4 mmol/L (3.4-5.0); Sodium 135 mmol/L (137-145)
[2021-12-05 08:36] LABS: Glucose Point of Care 75 mg/dl (65-105)
[2021-12-05] MEDS: carvediloL 3.125 MG TABLET PO (09:06)
[2021-12-05] MEDS: FERROUS SULFATE 324 MG TABLET PO (09:06)
[2021-12-05] MEDS: VITAMIN B COMPLEX CAPSULE 1 CAP BY MOUTH (09:07)
[2021-12-05] MEDS: ATORVASTATIN 40 MG TABLET PO (09:07)
[2021-12-05] MEDS: ASPIRIN 81 MG CHEWABLE TABLET PO (09:07)
--- NOTE | 2021-12-05 10:27 | PM.PNCARD ---
Progress Note: A&P Assessment and Plan (1) Elevated troponin: Code(s): R77.8 - Other specified abnormalities of plasma proteins Status: Acute Assessment and Plan: Patient was found to have elevated troponins, with no chest pain. EKG is uninterpretable due to chronic left bundle branch block and there ws no chest discomfort. It has been progressively worsening. elevated troponins likely secondary to nonischemic myocardial injury from the patient's hypoxia superimposed on chronic coronary artery disease, though ACS cannot be excluded. Started on Lovenox for possible ACS and also indeterminate V/Q scan. Added Aspirin and statin. Pt's Adrienne 2014 showed large areas of infarction but nml EF 58%. Now EF 20-25%. Rec ischemia evaluation. Access by cath may be difficult due to vascular disease; sounds like cath 2005 was done via the brachial approach. Also pt's GFR is 34, so at risk for complications w/ cath. Lexiscan stress test performed this morning. Further recommendations to follow based on findings. (2) Acute combined systolic and diastolic congestive heart failure: Code(s): I50.41 - Acute combined systolic (congestive) and diastolic (congestive) heart failure Status: Acute Assessment and Plan: Patient has acute systolic CHF, no (known) prior history. Improved after 2 doses furosemide IVP Coreg 3.125 mg BID started. Add spironolactone 25mg daily Ischemic cardiomyopathy; May be related to old [place]'s r/o new ischemia. (3) CAD (coronary artery disease): Code(s): I25.10 - Atherosclerotic heart disease of [place] coronary artery without angina pectoris Status: Acute Assessment and Plan: Remote coronary stent. No angina. Added ASA, statin; cont carvedilol etc. Previously was seen by Dr. Bowers but pt has not followed up. (4) Acute respiratory failure with hypoxia: Code(s): J96.01 - Acute respiratory failure with hypoxia Status: Acute Assessment and Plan: Likely has COPD as well as CHF. (5) Atherosclerotic vascular disease: Code(s): I70.90 - Unspecified atherosclerosis Status: Acute Assessment and Plan: Patient has poly vascular disease with carotid occlusion and stroke, coronary artery disease and peripheral vascular disease. Intact distal pulses. He is taking Xarelto for uncertain reasons. May be a candidate for low-dose Xarelto 2.5 mg BID + ASA, depending on Xarelto indication. Will see if we can find any old records. Continue ASA, statin Subjective Date/time seen: 12/05/21 10:27 Interval history: Patient admitted with congestive heart failure. EF 2014 was 58% but is now 20-25%. History of CAD, stent around 2005. Troponins up to 2.3. No chest pain. Peripheral vascular disease s/p RLE bypass, carotid disease. Patient takes Xarelto 20 mg daily--he's not sure why. 12/03/2021 Initial Consultation: Acute systolic heart failure, agreed with diuresis. Elevated troponins, possibly nonischemic myocardial injury due to hypoxemia on chronic CAD though ACS cannot be excluded. Progressive QUIROGA over the last 2 or 3 weeks and lack of anginal sx is more suggestive of CHF rather than ACS. REcomended lovenox for a couple of days, and I added aspirin and statin. Smoker, has stable COPD. : Feeling better, off O2, chronic SOB, no edema or CP. 2015 Lexiscan: Large areas of severe infarct involving the inferior wall, apex, apical septal, mid anteroseptal and mid inferior septal segments, EF 58%. EKG 12/04/2021 at 6:35 a.m. shows NSR rate 84, first-degree AV block, LBBB (chronic) 12/05/2021: Feels good, no complaints...denies chest pain or shortness of breath. Review of Systems Constitutional: Constitutional: Reports fatigue and Reports weakness Eyes: Eyes: Reports no additional eye complaints ENT: Denies epistaxis Cardiovascular: Cardiovascular: Denies chest pain, Denies pedal edema, Denies leg edema, Denie
[2021-12-05 14:32] LABS: Glucose Point of Care 99 mg/dl (65-105)
--- NOTE | 2021-12-05 15:36 | PM.DS ---
DS: Admitting Diagnosis Discharge Date 12/05/21 Admitting Diagnosis Shortness of Breath/Dyspnea DS: Discharge Diagnosis Discharge Diagnosis (1) Acute respiratory failure with hypoxia: Code(s): J96.01 - Acute respiratory failure with hypoxia Status: Acute Assessment and Plan: Patient presents with SOB and initially was placed on a non-rebreather mask but easily weaned to 2 L per nasal cannula. The patient has a history of congestive heart failure. The patient was given Lasix and an aspirin in the ED. The patient's troponin were elevated as well. Patient received intermittent doses of Lasix with good response. His SOB/QUIROAG was much improved. He was easily weaned to room air. (2) CHF (congestive heart failure), NYHA class I: Code(s): I50.9 - Heart failure, unspecified Status: Chronic Assessment and Plan: Patient presents with 2 week hx of SOB. CXR showing diffuse interstitial pattern in the lungs. BNP 9510. Echo showing EF 20-25% with mild valvular disease and diastolic dysfunction and elevated RVSP consistent with pulmonary HTN. He received IV Lasix intermittently. His lung exam improved. Patient with Ac/Ch systolic and diastolic CHF. He was on Lisinopril but changed to Entresto and Coreg added. Cardiology consulted and followed along; appreciate their input. (3) Elevated troponin: Code(s): R77.8 - Other specified abnormalities of plasma proteins Status: Acute Assessment and Plan: Troponin elevated to 2.25 before trending down. EKG showed left bundle branch block with left axis deviation. Bundle branch block is chronic. Echo as mentioned above. Lexiscan stress test showing large moderate severity nonreversible infarct (as detailed in the report) involving primarily the left anterior descending and right coronary artery vascular distributions with EF about 22%. No reversible ischemia. Plan to continue medical management. (4) Pulmonary emboli: Code(s): I26.99 - Other pulmonary embolism without acute cor pulmonale Status: Acute Assessment and Plan: Patient presents with SOB. Pulmonary perfusion study showing intermediate probability for PE. Patient was unsure why he was on Xarelto. LE venous dopplers negative for DVT. Clinically better with treatment with Lasix and EF 20% so overall felt acute PE less likely. Spoke with dtr. Patient on Xarelto for PEs diagnosed about 2-3 months ago. (5) Chronic renal failure, stage 3b: Code(s): N18.32 - Chronic kidney disease, stage 3b Status: Chronic Assessment and Plan: Patient's creatinine is 1.7 on admission. A month ago, Cr was 1.3 and was 2.10 in 2015. Renal US showing severe atrophic left kidney. Cr 1.9 today and stable; probably within his baseline. (6) CAD (coronary artery disease): Code(s): I25.10 - Atherosclerotic heart disease of [place] coronary artery without angina pectoris Status: Acute Assessment and Plan: In 2015, Lexiscan stress test showing a large areas of severe infarct involving inferior wall, apex, and apical septal, mid anteroseptal, and mid inferoseptal segments of left ventricle as well as septal hypokinesis with EF 58%. Only on Lisinopril on admission. ASA resumed and Lipitor and Coreg added. Further adjustment per Cardiology. Repeat stress test as above. (7) DM2 (diabetes mellitus, type 2): Code(s): E11.9 - Type 2 diabetes mellitus without complications Status: Chronic Assessment and Plan: A1c 5.3. Patient is diet-controlled diabetic. The patient's blood glucose was monitored closely with AccuCheks covering with sliding scale. Hypoglycemia protocol was available as needed. Glucose remained well controlled. (8) Hypertension: Code(s): I10 - Essential (primary) hypertension Status: Chronic Assessment and Plan: Patient's blood pressure was elevated early on but improved with the adjustment of his medicati
[2021-12-05 17:21] LABS: Glucose Point of Care 123 mg/dl (65-105)
== END 2021-12-05 16:31 | disposition home or self-care (01) ==
LOC: ANHED 10:34 → ANHIMU 15:30
PROVIDERS: Nurse Practitioner; Admitting Provider Internal Medicine; Emergency Provider Emergency Medicine; Visit Provider Internal Medicine
DX: J96.01 Acute respiratory failure with hypoxia (principal); I13.0 Hypertensive heart and chronic kidney disease with heart failure and stage 1 through stage 4 chronic kidney disease, or unspecified chronic kidney disease; I50.43 Acute on chronic combined systolic (congestive) and diastolic (congestive) heart failure; I26.99 Other pulmonary embolism without acute cor pulmonale; N18.32 Chronic kidney disease, stage 3b; I70.611 Atherosclerosis of nonbiological bypass graft(s) of the extremities with intermittent claudication, right leg; I65.22 Occlusion and stenosis of left carotid artery; I25.10 Atherosclerotic heart disease of native coronary artery without angina pectoris; I44.7 Left bundle-branch block, unspecified; E11.22 Type 2 diabetes mellitus with diabetic chronic kidney disease; E03.9 Hypothyroidism, unspecified; R77.8 Other specified abnormalities of plasma proteins; C43.61 Malignant melanoma of right upper limb, including shoulder; Z79.01 Long term (current) use of anticoagulants; Z20.822 Contact with and (suspected) exposure to COVID-19; Z95.5 Presence of coronary angioplasty implant and graft; Z87.442 Personal history of urinary calculi; Z96.652 Presence of left artificial knee joint; Z86.73 Personal history of transient ischemic attack (TIA), and cerebral infarction without residual deficits; Z72.0 Tobacco use
CPT/HCPCS: 36415; 36600; 71045; 76775; 78452; 78580; 80053; 80069; 82728; 82805; 82948; 83036; 83605; 83615; 83735; 83880; 84443; 84484; 85025; 85027; 85380; 86140; 93005; 93017; 93306; 93970; 96372; 96374; 96376; 99285; A9270; A9502; A9540; C9803; G0378; J1650; J1940; J2785; U0003; U0005

== ENCOUNTER 2021-12-29 13:37 | Outpatient (CLI) | payer MEDICARE, OTHER, SELFPAY ==
--- NOTE | ~2021-12-29 | US_ITS ---
EXAMINATION: US carotid duplex BI DATE: 12/29/2021 14:10 INDICATION: Left frontal lobe infarct. TECHNIQUE: Grayscale, color Doppler, and pulsed Doppler images of the cervical carotid arteries were obtained. The degree of vessel stenosis is placed in one of the following categories: normal, <50%, 5 0-69%, >=70% but less than near-occlusion, near-occlusion, or total occlusion. Note that percent sten osis relative to normal distal artery lumen diameter is indirectly measured from velocity measurement s as described by Adalberto, et al. Radiology 2003; 229:340-346. COMPARISON: Ultrasound 02/25/2016 FINDINGS: RIGHT: The right common carotid artery (CCA) peak systolic velocity (PSV) is 83 cm/s. The right internal car otid artery (ICA) PSV is 96 cm/s. The right ICA end-diastolic velocity (EDV) is 22 cm/s. The right IC A/CCA PSV ratio is 1.2. Grayscale and color Doppler images yield an estimate of <50% diameter reducti on from plaque in the ICA. There is antegrade flow in the right vertebral artery. LEFT: The left CCA PSV is 66 cm/s. Grayscale and color Doppler images demonstrate total occlusion of the IC A. There is antegrade flow in the left vertebral artery. IMPRESSION: 1. <50% stenosis in the right internal carotid artery. 2. 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 Reviewed, dictated and finalized at location A. [employer]
== END 2021-12-29 13:38 | disposition home or self-care (01) ==
PROVIDERS: PCP Emergency Medicine; Visit Provider Nurse Practitioner Adult Health
DX: I65.23 Occlusion and stenosis of bilateral carotid arteries (principal); Z86.73 Personal history of transient ischemic attack (TIA), and cerebral infarction without residual deficits
CPT/HCPCS: 93880

== ENCOUNTER 2022-05-23 04:16 | Emergency (ER) | payer MEDICARE, OTHER, SELFPAY ==
--- NOTE | ~2022-05-23 | XR_ITS ---
XR chest 2V 05/23/2022 04:59 Indication: Shortness of breath Procedure: 2 view chest Comparison: Comparison to multiple prior studies sequentially, with oldest reviewed study dated 11/2014. Findings: Heart size normal. There is improving interstitial edema. Small pleural effusions. No pneum othorax. Impression: 1: Improving mild interstitial edema. Reviewed, dictated and finalized at location A. Impression: 1: Improving mild interstitial edema.
[2022-05-23 04:18] VITALS: BP 186/88; PULSE 86; RESP 16; TEMP 36.4; O2SAT 96
--- NOTE | 2022-05-23 04:28 | ED.GENADULT ---
HPI - General Adult General Chief complaint: Shortness of Breath/Dyspnea Stated complaint: SOB Time Seen by Provider: 05/23/22 04:21 History of Present Illness HPI narrative: 81-year-old male presenting to the emergency department for evaluation of shortness of breath. Patient states he was at home when he developed shortness of breath. Patient has a history of congestive heart failure. Patient states that he has had a cough over the last few days. Patient called EMS due to the severity of her symptoms. Patient was saturating at 85% on room air. Patient was treated with a breathing treatment and upon arrival to the emergency department he is saturating 97 to 98% on room air. Patient states he does feel improved at this time. Patient denies any chest pain. Related Data Home Medications Medication Instructions Recorded Confirmed B Complex-Vitamin B12 2,500 mcg BYMOUTH DAILY 12/03/21 12/03/21 ferrous sulfate 325 mg (65 mg 325 mg PO DAILY 12/03/21 12/03/21 iron) tablet levothyroxine 75 mcg tablet 75 mcg PO DAILY 12/03/21 12/03/21 rivaroxaban 20 mg tablet (Xarelto) 20 mg PO DAILY 12/03/21 12/03/21 Allergies Allergy/AdvReac Type Severity Reaction Status Date / Time No Known Allergies Allergy Mild Verified 12/03/21 11:25 Review of Systems Review of Systems: CONSTITUTIONAL: Denies fever, chills, or sweats. EYES: Denies visual changes, redness, or discharge. ENT: Denies rhinorrhea, congestion, sore throat, or otalgia. CARDIOVASCULAR: Denies chest pain, palpitations, or edema. RESPIRATORY: See HPI GASTROINTESTINAL: Denies abdominal pain, nausea, vomiting, or diarrhea. GENITOURINARY: Denies dysuria or hematuria. SKIN: Denies rash or itching. MUSCULOSKELETAL: Denies back pain, joint pain, or myalgia. NEUROLOGIC: Denies headache, numbness, or weakness. 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 Carotid artery occlusion 100% occluded left internal carotid artery. 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 He has 2 children. He continues to smoke 1/2 ppd. he worked in [employer]. He denies any alcohol marijuana or illicit drugs. He denies any [employer]. Code status full code Years smoked: 78 Smoking status: Current some day smoker Tobacco type: cigarettes Alcohol intake: current Drinks per week: 6 Substance use: never Spiritual care concerns: No Exam Narrative: APPEARANCE: Well appearing, no pain, no distress, well-nourished. HEAD: normocephalic, atraumatic. EYES: PERRLA/EOMI, conjunctivae clear. NOSE: Normal no drainage NECK: Supple. No adenopathy, no masses. RESPIRATORY: Airway patent, breath sounds diminished. CARDIOVASCULAR: Regular rate and rhythm without murmurs rubs or gallops. ABDOMINAL: Soft, nontender, nondistended, normal bowel sounds MUSCULOSKELETAL: Moves a
[2022-05-23 04:29] VITALS: PULSE 82; O2SAT 97
[2022-05-23 04:43] LABS: Basophils Absolute Auto 0.1 K/mm3 (0.0-0.1); Basophils Percent Auto 0.6 % (0.2-1.2); Eosinophils Absolute Auto 0.9 K/mm3 (0-0.3); Eosinophils Percent Auto 7.2 % (0-4.4); Hematocrit 33.2 % (42.0-52.0); Hemoglobin 10.1 g/dL (14.0-18.0); Immature Granulocyte Absolute 0.04 K/mm3 (0.00-0.031); Immature Granulocyte Percent A 0.3 % (0-0.5); Lymphocytes Absolute Auto 1.95 K/mm3 (0.9-3.2); Lymphocytes Percent Auto 15.4 % (18.3-44.2); Mean Corpuscular HGB Conc 30.4 g/dl (32-36); Mean Corpuscular Hemoglobin 29.2 pg (26-34); Mean Platelet Volume 11.1 fl (7.4-10.4); Monocytes Absolute Auto 0.6 K/mm3 (0.1-0.6); Monocytes Percent Auto 4.7 % (2.6-8.5); Neutrophils Absolute Auto 9.1 K/mm3 (1.3-6.7); Neutrophils Percent Auto 71.8 % (45.5-73.1); Platelet Count Result 195 k/mm3 (150-375); Red Blood Count 3.46 M/mm3 (4.6-6.20); White Blood Count 12.6 K/mm3 (4.5-10.0)
[2022-05-23 04:53] LABS: Alanine Aminotransferase 20 U/L (6-50); Albumin Level 3.7 g/dL (3.5-5.1); Alkaline Phosphatase 91 U/L (38-126); Anion Gap 9 mmol/L (8-16); Aspartate Amino Transferase 38 U/L (17-59); Bilirubin,Total 0.3 mg/dL (0.2-1.3); Blood Urea Nitrogen 26 mg/dL (9-20); Calcium 8.3 mg/dL (8.4-10.2); Carbon Dioxide 24 mmol/L (22-30); Chloride 114 mmol/L (98-107); Estimated CRCL calculation 29 ml/min; Estimated Glomerular Filt Rate 36; Glucose 170 mg/dL (65-110); Potassium 3.7 mmol/L (3.4-5.0); Sodium 147 mmol/L (137-145)
[2022-05-23 05:02] LABS: NT Pro B Type Natriuretic Pept 6930 pg/mL (5-100)
[2022-05-23 05:20] LABS: SARS-CoV-2 RNA PCR Negative
[2022-05-23 06:30] VITALS: BP 135/62; PULSE 72; RESP 16; O2SAT 98
--- NOTE | 2022-05-23 10:16 | ECG_ITS ---
Measurements Intervals [employer] Rate: 81 P: 74 IL: 233 QRS: -52 QRSD: 181 T: 124 QT: 456 QTc: 532 Interpretive Statements SINUS RHYTHM WITH FIRST DEGREE AV BLOCK LEFT AXIS DEVIATION LEFT BUNDLE BRANCH BLOCK BASELINE ARTIFACT- II, III, AVR, AVL, AVF, V4-V5 ABNORMAL ECG Electronically Signed On 05-23-2022 16:50:07 CDT by Mario Alberto Farah D.O.
== END 2022-05-23 06:30 | disposition home or self-care (01) ==
PROVIDERS: Emergency Provider Emergency Medicine; PCP Emergency Medicine
DX: R06.00 Dyspnea, unspecified (principal); Z20.822 Contact with and (suspected) exposure to COVID-19; I25.10 Atherosclerotic heart disease of native coronary artery without angina pectoris; D64.9 Anemia, unspecified; E11.22 Type 2 diabetes mellitus with diabetic chronic kidney disease; I13.0 Hypertensive heart and chronic kidney disease with heart failure and stage 1 through stage 4 chronic kidney disease, or unspecified chronic kidney disease; N18.32 Chronic kidney disease, stage 3b; I50.9 Heart failure, unspecified; E11.51 Type 2 diabetes mellitus with diabetic peripheral angiopathy without gangrene; I73.9 Peripheral vascular disease, unspecified; E03.9 Hypothyroidism, unspecified; Z85.820 Personal history of malignant melanoma of skin; Z86.73 Personal history of transient ischemic attack (TIA), and cerebral infarction without residual deficits; Z87.442 Personal history of urinary calculi; Z98.49 Cataract extraction status, unspecified eye; Z95.5 Presence of coronary angioplasty implant and graft; Z96.653 Presence of artificial knee joint, bilateral; Z79.01 Long term (current) use of anticoagulants; Z79.82 Long term (current) use of aspirin; F17.210 Nicotine dependence, cigarettes, uncomplicated; I44.0 Atrioventricular block, first degree; I44.7 Left bundle-branch block, unspecified
CPT/HCPCS: 36415; 71046; 80053; 83880; 85025; 93005; 99283; C9803; U0003; U0005

== ENCOUNTER 2022-08-14 11:45 | Inpatient (IN) | payer MEDICARE, OTHER, SELFPAY ==
[2022-08-14] VITALS (24 sets, daily range): BP systolic 151–211; BP diastolic 52–98; PULSE 69–113; RESP 13–22; TEMP 36.5–36.8; O2SAT 94–100; BMI 23.3
--- NOTE | ~2022-08-14 | XR_ITS ---
EXAMINATION: XR chest 2V DATE: 08/14/2022 12:25 INDICATION: Shortness of breath. TECHNIQUE: Frontal and lateral views of the chest were obtained. COMPARISON: Chest 2 views 05/23/2022 FINDINGS: The lungs are hyperexpanded, consistent with emphysema. [place] B-lines are noted, consisten t with mild pulmonary edema. There are small pleural effusions. No pneumothorax. The heart size is no rmal. There are surgical clips in right sternoclavicular region and right axilla. IMPRESSION: 1. Mild pulmonary edema. 2. Small pleural effusions. 3. Emphysema. Reviewed, dictated and finalized at location A.
--- NOTE | 2022-08-14 11:59 | ECG_ITS ---
Measurements Intervals [place] Rate: 82 P: 78 [place]: 225 QRS: -51 QRSD: 178 T: 132 QT: 462 QTc: 541 Interpretive Statements SINUS RHYTHM WITH FIRST DEGREE AV BLOCK LEFT AXIS DEVIATION LEFT BUNDLE BRANCH BLOCK ABNORMAL ECG COMPARED TO ECG 05/23/2022 04:22:33 NO SIGNIFICANT CHANGES Electronically Signed On 08-15-2022 15:02:15 CDT by Thong Bowers M.D.
[2022-08-14 12:05] LABS: Basophils Absolute Auto 0.1 K/mm3 (0.0-0.1); Basophils Percent Auto 0.8 % (0.2-1.2); Eosinophils Absolute Auto 0.8 K/mm3 (0-0.3); Eosinophils Percent Auto 9.7 % (0-4.4); Hematocrit 37.9 % (42.0-52.0); Hemoglobin 12.1 g/dL (14.0-18.0); Immature Granulocyte Absolute 0.01 K/mm3 (0.00-0.031); Immature Granulocyte Percent A 0.1 % (0-0.5); Lymphocytes Absolute Auto 2.55 K/mm3 (0.9-3.2); Lymphocytes Percent Auto 32.9 % (18.3-44.2); Mean Corpuscular HGB Conc 31.9 g/dl (32-36); Mean Corpuscular Hemoglobin 29.7 pg (26-34); Mean Corpuscular Volume 93.1 fl (80-100); Mean Platelet Volume 11.2 fl (7.4-10.4); Monocytes Absolute Auto 0.5 K/mm3 (0.1-0.6); Monocytes Percent Auto 5.9 % (2.6-8.5); Neutrophils Absolute Auto 3.9 K/mm3 (1.3-6.7); Neutrophils Percent Auto 50.6 % (45.5-73.1); Platelet Count Result 197 k/mm3 (150-375); Red Blood Count 4.07 M/mm3 (4.6-6.20); Red Cell Distribution Width 16.1 % (11.5-14.5); White Blood Count 7.8 K/mm3 (4.5-10.0)
--- NOTE | 2022-08-14 12:08 | ED.GENADULT ---
HPI - General Adult General Chief complaint: Shortness of Breath/Dyspnea Stated complaint: DIFFICULTY BREATHING Time Seen by Provider: 08/14/22 12:03 Source: RN notes reviewed History of Present Illness HPI narrative: Patient presents emergency department from home for shortness of breath. Patient states that he woke up approximately 2 hours ago and felt short of breath. He states that that time he called EMS when EMS arrived the patient been noted to have an O2 sat initially 89% but is now in the 90s on room air states that he uses inhaler with minimal relief states he has a history of COPD he denies any fevers or chills he denies a cough he denies chest pain abdominal pain nausea vomiting or any other symptoms states he does not feel short of breath at this time Related Data Home Medications Medication Instructions Recorded Confirmed B Complex-Vitamin B12 2,500 mcg BYMOUTH DAILY 12/03/21 12/03/21 ferrous sulfate 325 mg (65 mg 325 mg PO DAILY 12/03/21 12/03/21 iron) tablet levothyroxine 75 mcg tablet 75 mcg PO DAILY 12/03/21 12/03/21 rivaroxaban 20 mg tablet (Xarelto) 20 mg PO DAILY 12/03/21 12/03/21 Allergies Allergy/AdvReac Type Severity Reaction Status Date / Time No Known Allergies Allergy Mild Verified 08/14/22 11:52 Review of Systems Review of Systems: Gen.: Denies fevers or chills ENT: Denies congestion Respiratory: See HPI CV: Denies chest pain or palpitations GI: Denies abdominal pain nausea, emesis or diarrhea Musculoskeletal: Denies back pain or muscle pain Neuro: Denies numbness, tingling, weakness or focal weakness Skin: Denies rash Except as documented, all other systems reviewed and negative [facility] Past Medical History Medical History 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 Carotid artery occlusion 100% occluded left internal carotid artery. 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 He has 2 children. He continues to smoke 1/2 ppd. he worked in [employer]. He denies any alcohol marijuana or illicit drugs. He denies any power defense attorney for healthcare. Code status full code Years smoked: 78 Smoking status: Current some day smoker Tobacco type: cigarettes Alcohol intake: current Drinks per week: 6 Substance use: never Spiritual care concerns: No Exam Narrative: APPEARANCE: No acute distress, nontoxic, resting in bed EYES: EOMI HEENT: Normocephalic, atraumatic, OMM RESPIRATORY: No respiratory distress Clear to auscultation bilaterally with no rhonchi wheezing or rales. CARDIOVASCULAR: Regular rate and rhythm without murmurs rubs or gallops. ABDOMINAL: Soft, nontender, nondistended, no rebound or guarding MUSCULOSKELETAl: Moves all extremities. No clubbing, cyanosis 2+ edema in the bilateral lower extremities. NEURO: Awake and alert. Following commands, speech normal, no focal deficits SKIN:: Warm, dry. No
[2022-08-14 12:15] LABS: Alanine Aminotransferase 18 U/L (6-50); Albumin Level 3.9 g/dL (3.5-5.1); Alkaline Phosphatase 88 U/L (38-126); Anion Gap 8 mmol/L (8-16); Aspartate Amino Transferase 36 U/L (17-59); Bilirubin,Total 0.6 mg/dL (0.2-1.3); Blood Urea Nitrogen 21 mg/dL (9-20); Calcium 8.4 mg/dL (8.4-10.2); Carbon Dioxide 23 mmol/L (22-30); Chloride 108 mmol/L (98-107); Estimated CRCL calculation 28 ml/min; Estimated Glomerular Filt Rate 36; Glucose 189 mg/dL (65-110); Potassium 4.3 mmol/L (3.4-5.0); Sodium 139 mmol/L (137-145)
[2022-08-14 12:45] LABS: NT Pro B Type Natriuretic Pept 7260 pg/mL (5-100); Troponin I 0.049 ng/mL (0.000-0.034)
[2022-08-14 12:58] LABS: SARS-CoV-2 RNA PCR Negative
[2022-08-14] MEDS: FUROSEMIDE INJ 40 MG/4 ML VIAL 20 MG IV PUSH (13:19)
[2022-08-14 17:32] LABS: Troponin I 0.071 ng/mL (0.000-0.034)
[2022-08-14] MEDS: hydrALAZINE HCL 20 MG/ML VIAL 10 MG IV PUSH (18:15)
--- NOTE | 2022-08-14 18:53 | PM.IMHP ---
H&P: HPI History of Present Illness Date/Time: 08/14/22 18:53 Chief Complaint: difficulty breathing Narrative: this is a 82-year-old male patient who came to the emergency room with complaints of shortness of breath. He has a history of CHF, chronic renal failure, and coronary artery disease. The patient stated that he woke up about 2 hours before he came to the emergency room and felt short of breath. Patient's O2 saturations were reported as 89% when EMS arrived. However the patient was in the 90s when he came to the emergency room on room air. Patient had no fever chills or cough. He states he has been taking his medications last echo was on 12/04/2021 and was reported to have a 20-25% ejection fraction. His chest x-ray from today was read as mild pulmonary edema. Small pleural effusion. Emphysema. The patient is currently on room air. The patient was given Lasix in the emergency room. His blood pressure remained elevated so I ordered hydralazine for him. His creatinine is listed as 1.8 which is his baseline. His troponin was 0.049 and then 0.071. The patient has had chronically elevated troponins in the past. These levels are lower than previously listed. patient's BNP is 7260. He is negative for COVID. The patient is being admitted for observation status on the date of service of 08/14/2022. Review of Systems Review of Systems: See HPI All systems reviewed & are unremarkable except as noted in HPI and below Constitutional: Constitutional: Reports as per HPI and Reports no additional constitutional complaints Eyes: Eyes: Reports as per HPI and Reports no additional eye complaints ENT: Reports system reviewed and no additional complaints, except as documented and Reports Normal hearing present Cardiovascular: Cardiovascular: Reports no additional cardiovascular complaints Respiratory: Respiratory: Reports no additional respiratory complaints and Reports no additional respiratory complaints Gastrointestinal: Gastrointestinal: Reports as per HPI and Reports no additional gastrointestinal complaints Musculoskeletal: Musculoskeletal: Reports no additional musculoskeletal complaints Integumentary/Breasts: Skin/Breast: Reports system reviewed and no additional complaints, except as docu and Reports as per HPI Neurologic: Reports system reviewed and no additional complaints, except as documented, Reports as per HPI and Reports Normal hearing present Psychiatric: Psychiatric: Reports no additional psychiatric complaints and Reports as per HPI Endocrine: Endocrine: Reports no additional endocrine complaints Hematologic/Lymphatic: Hematologic/Lymphatic: Reports no additional hematologic/lymphatic complaints Allergic/Immunologic: Allergic/Immunologic: Reports no additional allergic/immunologic complaints [facility] Past Medical History Medical History 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 Carotid artery occlusion 100% occluded left internal carotid artery. 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
[2022-08-14 19:55] LABS: Troponin I 0.088 ng/mL (0.000-0.034)
[2022-08-14 22:23] LABS: Glucose Point of Care 129 mg/dl (65-105)
[2022-08-14] MEDS: lisinopriL 5 MG TABLET PO (22:31)
[2022-08-14] MEDS: APIXABAN 2.5 MG TABLET PO (22:31)
[2022-08-14] MEDS: ATORVASTATIN 40 MG TABLET PO (22:31)
[2022-08-15] VITALS (11 sets, daily range): BP systolic 120–185; BP diastolic 48–83; PULSE 68–87; RESP 14–20; TEMP 36.4–36.7; O2SAT 96–100
[2022-08-15 04:44] LABS: Basophils Absolute Auto 0.1 K/mm3 (0.0-0.1); Basophils Percent Auto 0.7 % (0.2-1.2); Eosinophils Absolute Auto 0.8 K/mm3 (0-0.3); Eosinophils Percent Auto 9.5 % (0-4.4); Hematocrit 32.8 % (42.0-52.0); Hemoglobin 10.5 g/dL (14.0-18.0); Immature Granulocyte Absolute 0.02 K/mm3 (0.00-0.031); Immature Granulocyte Percent A 0.2 % (0-0.5); Lymphocytes Absolute Auto 1.65 K/mm3 (0.9-3.2); Lymphocytes Percent Auto 20.6 % (18.3-44.2); Mean Corpuscular Hemoglobin 29.7 pg (26-34); Mean Corpuscular Volume 92.9 fl (80-100); Mean Platelet Volume 11.2 fl (7.4-10.4); Monocytes Absolute Auto 0.8 K/mm3 (0.1-0.6); Monocytes Percent Auto 10.4 % (2.6-8.5); Neutrophils Absolute Auto 4.7 K/mm3 (1.3-6.7); Neutrophils Percent Auto 58.6 % (45.5-73.1); Nucleated Red Blood Cells Perc 0.4 % (0.0-0.2); Platelet Count Result 169 k/mm3 (150-375); Red Blood Count 3.53 M/mm3 (4.6-6.20); Red Cell Distribution Width 16.3 % (11.5-14.5)
[2022-08-15 04:56] LABS: Alanine Aminotransferase 13 U/L (6-50); Albumin Level 3.1 g/dL (3.5-5.1); Alkaline Phosphatase 75 U/L (38-126); Anion Gap 11 mmol/L (8-16); Aspartate Amino Transferase 24 U/L (17-59); Bilirubin,Total 0.5 mg/dL (0.2-1.3); Blood Urea Nitrogen 24 mg/dL (9-20); Calcium 8.2 mg/dL (8.4-10.2); Carbon Dioxide 25 mmol/L (22-30); Chloride 104 mmol/L (98-107); Estimated CRCL calculation 27 ml/min; Estimated Glomerular Filt Rate 34; Glucose 82 mg/dL (65-110); Magnesium 1.8 mg/dL (1.6-2.3); Phosphorus 4.1 mg/dL (2.5-4.5); Potassium 3.3 mmol/L (3.4-5.0); Sodium 140 mmol/L (137-145)
[2022-08-15 04:58] LABS: Hemoglobin A1C 5.8 % (<5.7)
[2022-08-15] MEDS: LEVOTHYROXINE SODIUM 75 MCG TABLET PO (06:34)
[2022-08-15 08:55] LABS: Glucose Point of Care 91 mg/dl (65-105)
[2022-08-15] MEDS: lisinopriL 5 MG TABLET PO (09:18)
[2022-08-15] MEDS: ATORVASTATIN 40 MG TABLET PO (09:19)
[2022-08-15] MEDS: APIXABAN 2.5 MG TABLET PO ×2 (09:19→17:44)
[2022-08-15] MEDS: FUROSEMIDE INJ 40 MG/4 ML VIAL 20 MG IV PUSH ×2 (09:19→17:43)
[2022-08-15 12:59] LABS: Glucose Point of Care 88 mg/dl (65-105)
[2022-08-15 15:21] LABS: Total Triiodothyronine (T3) 0.89 NG/ML (0.97-1.69)
--- NOTE | 2022-08-15 15:41 | PM.IMPN ---
Progress Note: A&P Assessment and Plan (1) Acute combined systolic and diastolic congestive heart failure: Code(s): I50.41 - Acute combined systolic (congestive) and diastolic (congestive) heart failure Status: Acute Assessment and Plan: - continue with IV Lasix. - consult Cardiology. - patient had an echo on 12/04/2021 and was read as the following? 1. Complete two-dimensional, color flow and Doppler transthoracic echocardiogram is performed. ? 2. Left ventricular systolic function is severely reduced, estimated at 20-25%. ? 3. Left ventricular chamber dimension is mildly enlarged. ? 4. There is mildly increased left ventricular wall thickness. ? 5. There is mild aortic valve sclerosis. ? 6. There is mild mitral valve regurgitation. ? 7. There is mild to moderate tricuspid valve regurgitation. ? 8. RVSP 68 mmHg. -continue with IV Lasix please continue to monitor his renal function. -continue with lisinopril. Please continue to monitor his renal function. 08/15/2022 interval history: patient is 82-year-old male history of acute on chronic combined systolic diastolic congestive heart failure patient ejection fraction was 20-25% patient presented with complaint of shortness of breath with elevated BNP 7260 most likely patient has acute on chronic combined systolic diastolic congestive heart failure, on last discharge in December of this patient was discharged home [place] however patient is taking lisinopril in states, will diurese the patient with IV Lasix 20 mg b.i.d. and will monitor, patient daughter is present in the I answered all her questions, will have a PT OT evaluate the patient patient will benefit going to rehab. (2) Chronic renal failure, stage 3b: Code(s): N18.32 - Chronic kidney disease, stage 3b Status: Chronic Assessment and Plan: -. The patient has a creatinine of 1.8 which is his baseline. And a GFR 36. (3) DM2 (diabetes mellitus, type 2): Code(s): E11.9 - Type 2 diabetes mellitus without complications Status: Chronic Assessment and Plan: -Accu-Cheks AC and HS. -his blood sugar was 189 today. -check A1c. (4) Hypertension: Code(s): I10 - Essential (primary) hypertension Status: Chronic Assessment and Plan: -continue with lisinopril. -p.r.n. hydralazine. (5) Hypothyroidism: Code(s): E03.9 - Hypothyroidism, unspecified Status: Chronic Assessment and Plan: Continue with levothyroxine Check thyroid level Subjective Date/time seen: 08/15/22 15:41 HPI-Narrative: ?this is a 82-year-old male patient who came to the emergency room with complaints of shortness of breath.? He has a history of CHF, chronic renal failure, and coronary artery disease.? The patient stated that he woke up about 2 hours before he came to the emergency room and felt short of breath.? Patient's O2 saturations were reported as 89% when EMS arrived.? However the patient was in the 90s when he came to the emergency room on room air.? Patient had no fever chills or cough.? He states he has been taking his medications last echo was on? 12/04/2021 and was reported to have a 20-25%? ejection fraction.? His chest x-ray from today was read as mild pulmonary edema.? Small pleural effusion.? Emphysema.? The patient is currently on room air.? The patient was given Lasix in the emergency room.? His blood pressure remained elevated so I ordered hydralazine for him.? His creatinine is listed as 1.8 which is his baseline.? His troponin was 0.049 and then 0.071.? The patient has had chronically elevated troponins in the past.? These levels are lower than previously listed. patient's BNP is 7260.? He is negative for COVID.? The patient is being admitted for observation status on the date of service of 08/14/2022. 08/15/2022 interval history: patient is 82-year-old male history of acute on chronic combined systolic diastolic congestive heart failure patient ejection fr
--- NOTE | 2022-08-15 16:00 | PC.NURSE ---
This patient, Angel Venegas, was received from IMU on 08/15/22 at 1600. Patient/family oriented to unit policies and routines
--- NOTE | 2022-08-15 16:00 | PC.NURSE ---
This patient, Angel Venegas, was transferred to [facility] on 08/15/22 at 1559. Personal belongings sent with patient. Report given to Allen TAPIA. Appropriate documentation sent with patient.
[2022-08-15 17:29] LABS: Glucose Point of Care 94 mg/dl (65-105)
[2022-08-16] VITALS (8 sets, daily range): BP systolic 131–159; BP diastolic 64–73; PULSE 65–82; RESP 18–20; TEMP 35.9–36.6; O2SAT 95–99
[2022-08-16 00:34] LABS: Glucose Point of Care 110 mg/dl (65-105)
[2022-08-16] MEDS: LEVOTHYROXINE SODIUM 75 MCG TABLET PO (07:00)
[2022-08-16 08:44] LABS: Glucose Point of Care 167 mg/dl (65-105)
[2022-08-16] MEDS: lisinopriL 5 MG TABLET PO (08:59)
[2022-08-16] MEDS: APIXABAN 2.5 MG TABLET PO ×2 (08:59→17:39)
[2022-08-16] MEDS: ATORVASTATIN 40 MG TABLET PO (08:59)
[2022-08-16 10:51] LABS: Albumin Level 3.3 g/dL (3.5-5.1); Anion Gap 9 mmol/L (8-16); Blood Urea Nitrogen 25 mg/dL (9-20); Calcium 8.3 mg/dL (8.4-10.2); Carbon Dioxide 27 mmol/L (22-30); Chloride 102 mmol/L (98-107); Estimated CRCL calculation 28 ml/min; Estimated Glomerular Filt Rate 36; Glucose 138 mg/dL (65-110); Potassium 3.3 mmol/L (3.4-5.0); Sodium 138 mmol/L (137-145)
[2022-08-16 10:56] LABS: Hematocrit 33.8 % (42.0-52.0); Hemoglobin 10.8 g/dL (14.0-18.0); Mean Corpuscular Hemoglobin 28.8 pg (26-34); Mean Corpuscular Volume 90.1 fl (80-100); Platelet Count Result 172 k/mm3 (150-375); Red Blood Count 3.75 M/mm3 (4.6-6.20); Red Cell Distribution Width 16.1 % (11.5-14.5); White Blood Count 6.9 K/mm3 (4.5-10.0)
[2022-08-16 12:06] LABS: Glucose Point of Care 91 mg/dl (65-105)
--- NOTE | 2022-08-16 14:08 | PM.IMPN ---
Progress Note: A&P Assessment and Plan (1) Acute combined systolic and diastolic congestive heart failure: Code(s): I50.41 - Acute combined systolic (congestive) and diastolic (congestive) heart failure Status: Acute Assessment and Plan: - continue with IV Lasix. - consult Cardiology. - patient had an echo on 12/04/2021 and was read as the following? 1. Complete two-dimensional, color flow and Doppler transthoracic echocardiogram is performed. ? 2. Left ventricular systolic function is severely reduced, estimated at 20-25%. ? 3. Left ventricular chamber dimension is mildly enlarged. ? 4. There is mildly increased left ventricular wall thickness. ? 5. There is mild aortic valve sclerosis. ? 6. There is mild mitral valve regurgitation. ? 7. There is mild to moderate tricuspid valve regurgitation. ? 8. RVSP 68 mmHg. -continue with IV Lasix please continue to monitor his renal function. -continue with lisinopril. Please continue to monitor his renal function. 08/16/2022 interval history: patient is 82-year-old male history of acute on chronic combined systolic diastolic congestive heart failure patient ejection fraction was 20-25% patient presented with complaint of shortness of breath with elevated BNP 7260 most likely patient has acute on chronic combined systolic diastolic congestive heart failure, on last discharge in December of this patient was discharged home on [place] however patient is taking lisinopril instead, will diurese the patient with IV Lasix 20 mg b.i.d. and will monitor, will cardiac ECHO, on 08/15 patient daughter was present in the room, I answered all her questions, will have a PT OT evaluate the patient patient will benefit going to rehab. (2) Chronic renal failure, stage 3b: Code(s): N18.32 - Chronic kidney disease, stage 3b Status: Chronic Assessment and Plan: -. The patient has a creatinine of 1.8 which is his baseline. And a GFR 36. (3) DM2 (diabetes mellitus, type 2): Code(s): E11.9 - Type 2 diabetes mellitus without complications Status: Chronic Assessment and Plan: -Accu-Cheks AC and HS. -his blood sugar was 189 today. -check A1c. (4) Hypertension: Code(s): I10 - Essential (primary) hypertension Status: Chronic Assessment and Plan: -continue with lisinopril. -p.r.n. hydralazine. (5) Hypothyroidism: Code(s): E03.9 - Hypothyroidism, unspecified Status: Chronic Assessment and Plan: Continue with levothyroxine Check thyroid level Subjective Date/time seen: 08/16/22 14:08 08/16/2022 interval history: patient is 82-year-old male history of acute on chronic combined systolic diastolic congestive heart failure patient ejection fraction was 20-25% patient presented with complaint of shortness of breath with elevated BNP 7260 most likely patient has acute on chronic combined systolic diastolic congestive heart failure, on last discharge in December of this patient was discharged home on [place] however patient is taking lisinopril instead, will diurese the patient with IV Lasix 20 mg b.i.d. and will monitor, will cardiac ECHO, on 08/15 patient daughter was present in the room, I answered all her questions, will have a PT OT evaluate the patient patient will benefit going to rehab. Review of Systems Review of Systems: All systems reviewed & are unremarkable except as noted in HPI and below Exam Narrative: Patient is comfortable, NAD HEENT: eyes are clear and none icteric LUNGS: bilateral fair air entry with rales and rhonchi HEART: RR S1S2 ABD: BS+, Soft and nontender Lower extremities: no edema SKIN: nonjaundiced Neuro: grossly intact. Objective Data Vital Signs Vital Signs: Vital Signs - 24 hr 08/15/22 16:10 08/15/22 16:00 08/15/22 20:00 Temperature 97.5 F L 97.9 F Pulse Rate 71 73 71 Respiratory Rate 16 20 Blood Pressure 147/83 H 154/74 H Pulse Oximetry 98 100 Oxygen Narcisa
[2022-08-16 17:31] LABS: Glucose Point of Care 80 mg/dl (65-105)
[2022-08-16 21:11] LABS: Glucose Point of Care 126 mg/dl (65-105)
[2022-08-17] VITALS (7 sets, daily range): BP systolic 148–162; BP diastolic 61–67; PULSE 60–70; RESP 16–20; TEMP 36.6–37; O2SAT 99
--- NOTE | 2022-08-17 | ECHO_ITS ---
Patient Info Name: Angel Venegas Age: 82 years : 1940 Gender: Male Ht: 69 in Wt: 158 lbs BSA: 1.87 m2 HR: 73 bpm BP: 162 / 67 mmHg Heart Rhythm: Sinus Rhythm Technical Quality: Fair Exam Date: 08/17/2022 9:31 AM Exam Location: [facility] Pulmonary Exam Room: 346 Patient Status: Inpatient Admit Date: 08/15/2022 Staff Ordering Physician: Ortega Parks MD Email Administrator: Yaneli Rincon RDCS Attending Provider: Angle Mariee DO Exam Type: CA echo doppler color flow Study Info Indications - chf Complete two-dimensional, color flow and Doppler transthoracic echocardiogram is performed. Summary 1. Complete two-dimensional, color flow and Doppler transthoracic echocardiogram is performed. 2. Left ventricular chamber dimension is moderately enlarged. 3. Left ventricular systolic function is severely reduced, estimated at 20-25%. 4. The anterior wall, apex and apical septal segments are akinetic. 5. Left atrial chamber dimension is mildly enlarged. 6. There is mild aortic valve sclerosis. 7. There is mild mitral valve regurgitation. 8. Compared with December of this year no significant difference. Left Ventricle Left ventricular chamber dimension is moderately enlarged. Left ventricular systolic function is severely reduced, estimated at 20-25%. The left ventricular diastolic function is grade I diastolic dysfunction. The anterior wall, apex and apical septal segments are akinetic. Right Ventricle Right ventricular chamber dimension is normal. Left Atria Left atrial chamber dimension is mildly enlarged. Right Atria Right atrial chamber dimension is normal. Aortic Valve The aortic valve is trileaflet. There is mild aortic valve sclerosis. Pulmonic Valve The pulmonic valve is not well visualized. Mitral Valve The mitral valve has normal leaflets. There is mild mitral valve regurgitation. Tricuspid Valve The tricuspid valve leaflets are normal. There is mild tricuspid valve regurgitation. Pericardium/Pleural The pericardium appears normal. Aorta The aortic root size at the sinus of Valsalva is normal. Left Ventricular Outflow Tract Name Value Normal LVOT 2D LVOT Diameter 2.1 cm LVOT Doppler LVOT Peak Gradient 3 mmHg LVOT Mean Gradient 2 mmHg LVOT VTI 20 cm LVOT VTI/AV VTI Ratio 0.8 LVOT Stroke Volume 68 ml LVOT CO 12.4 l/min LVOT CI 6.6 l/min/m2 Pulmonic Valve Name Value Normal PV Doppler PV Peak Gradient 3 mmHg Mitral Valve Name Value Normal
[2022-08-17 05:42] LABS: Hematocrit 33.6 % (42.0-52.0); Hemoglobin 10.8 g/dL (14.0-18.0); Mean Corpuscular HGB Conc 32.1 g/dl (32-36); Mean Corpuscular Volume 90.1 fl (80-100); Mean Platelet Volume 11.6 fl (7.4-10.4); Platelet Count Result 180 k/mm3 (150-375); Red Blood Count 3.73 M/mm3 (4.6-6.20); Red Cell Distribution Width 15.9 % (11.5-14.5); White Blood Count 8.4 K/mm3 (4.5-10.0)
[2022-08-17] MEDS: LEVOTHYROXINE SODIUM 75 MCG TABLET PO (05:43)
[2022-08-17 05:56] LABS: Albumin Level 3.3 g/dL (3.5-5.1); Anion Gap 10 mmol/L (8-16); Blood Urea Nitrogen 25 mg/dL (9-20); Calcium 8.1 mg/dL (8.4-10.2); Carbon Dioxide 27 mmol/L (22-30); Chloride 103 mmol/L (98-107); Estimated CRCL calculation 26 ml/min; Estimated Glomerular Filt Rate 34; Glucose 81 mg/dL (65-110); Phosphorus 3.7 mg/dL (2.5-4.5); Potassium 3.4 mmol/L (3.4-5.0); Sodium 140 mmol/L (137-145)
[2022-08-17 07:35] LABS: Glucose Point of Care 103 mg/dl (65-105)
[2022-08-17] MEDS: APIXABAN 2.5 MG TABLET PO (08:07)
[2022-08-17] MEDS: ATORVASTATIN 40 MG TABLET PO (08:08)
[2022-08-17] MEDS: lisinopriL 5 MG TABLET PO (08:08)
[2022-08-17 11:46] LABS: Glucose Point of Care 91 mg/dl (65-105)
--- NOTE | 2022-08-17 14:16 | PM.DS ---
DS: Admitting Diagnosis Discharge Date 08/17/2022 Admitting Diagnosis ?difficulty breathing DS: Discharge Diagnosis Discharge Diagnosis (1) Acute combined systolic and diastolic congestive heart failure: Code(s): I50.41 - Acute combined systolic (congestive) and diastolic (congestive) heart failure Status: Acute Assessment and Plan: - continue with IV Lasix. - consult Cardiology. - patient had an echo on 12/04/2021 and was read as the following? 1. Complete two-dimensional, color flow and Doppler transthoracic echocardiogram is performed. ? 2. Left ventricular systolic function is severely reduced, estimated at 20-25%. ? 3. Left ventricular chamber dimension is mildly enlarged. ? 4. There is mildly increased left ventricular wall thickness. ? 5. There is mild aortic valve sclerosis. ? 6. There is mild mitral valve regurgitation. ? 7. There is mild to moderate tricuspid valve regurgitation. ? 8. RVSP 68 mmHg. -continue with IV Lasix please continue to monitor his renal function. -continue with lisinopril. Please continue to monitor his renal function. 08/16/2022 interval history: patient is 82-year-old male history of acute on chronic combined systolic diastolic congestive heart failure patient ejection fraction was 20-25% patient presented with complaint of shortness of breath with elevated BNP 7260 most likely patient has acute on chronic combined systolic diastolic congestive heart failure, on last discharge in December of this patient was discharged home on [place] however patient is taking lisinopril instead, will diurese the patient with IV Lasix 20 mg b.i.d. and will monitor, will cardiac ECHO, on 08/15 patient daughter was present in the room, I answered all her questions, will have a PT OT evaluate the patient patient will benefit going to rehab. (2) Chronic renal failure, stage 3b: Code(s): N18.32 - Chronic kidney disease, stage 3b Status: Chronic Assessment and Plan: -. The patient has a creatinine of 1.8 which is his baseline. And a GFR 36. (3) DM2 (diabetes mellitus, type 2): Code(s): E11.9 - Type 2 diabetes mellitus without complications Status: Chronic Assessment and Plan: -Accu-Cheks AC and HS. -his blood sugar was 189 today. -check A1c. (4) Hypertension: Code(s): I10 - Essential (primary) hypertension Status: Chronic Assessment and Plan: -continue with lisinopril. -p.r.n. hydralazine. (5) Hypothyroidism: Code(s): E03.9 - Hypothyroidism, unspecified Status: Chronic Assessment and Plan: Continue with levothyroxine Check thyroid level DS: Summary Hospital Course Reason for hospitalization: Chief Complaint: ?difficulty breathing Narrative: ?this is a 82-year-old male patient who came to the emergency room with complaints of shortness of breath.? He has a history of CHF, chronic renal failure, and coronary artery disease.? The patient stated that he woke up about 2 hours before he came to the emergency room and felt short of breath.? Patient's O2 saturations were reported as 89% when EMS arrived.? However the patient was in the 90s when he came to the emergency room on room air.? Patient had no fever chills or cough.? He states he has been taking his medications last echo was on? 12/04/2021 and was reported to have a 20-25%? ejection fraction.? His chest x-ray from today was read as mild pulmonary edema.? Small pleural effusion.? Emphysema.? The patient is currently on room air.? The patient was given Lasix in the emergency room.? His blood pressure remained elevated so I ordered hydralazine for him.? His creatinine is listed as 1.8 which is his baseline.? His troponin was 0.049 and then 0.071.? The patient has had chronically elevated troponins in the past.? These levels are lower than previously listed. patient's BNP is 7260.? He is negative for COVID.? The patient is being admitted for observation status on the date of
== END 2022-08-17 16:48 | disposition home or self-care (01) | DRG 291 ==
LOC: ANHED 13:30 → ANHIMU 14:31 → ANH3MED 08-15 15:44
PROVIDERS: Emergency Medicine; Nurse Practitioner; Admitting Provider Student in an Organized Health Care Education/Training Program; Emergency Provider Emergency Medicine; PCP Emergency Medicine; Visit Provider Family Medicine
DX: I13.0 Hypertensive heart and chronic kidney disease with heart failure and stage 1 through stage 4 chronic kidney disease, or unspecified chronic kidney disease (principal); I50.41 Acute combined systolic (congestive) and diastolic (congestive) heart failure; Z20.822 Contact with and (suspected) exposure to COVID-19; D63.1 Anemia in chronic kidney disease; E11.22 Type 2 diabetes mellitus with diabetic chronic kidney disease; E11.51 Type 2 diabetes mellitus with diabetic peripheral angiopathy without gangrene; E03.9 Hypothyroidism, unspecified; F17.210 Nicotine dependence, cigarettes, uncomplicated; H54.7 Unspecified visual loss; I25.10 Atherosclerotic heart disease of native coronary artery without angina pectoris; I08.3 Combined rheumatic disorders of mitral, aortic and tricuspid valves; J43.9 Emphysema, unspecified; N18.32 Chronic kidney disease, stage 3b; Z95.5 Presence of coronary angioplasty implant and graft; Z86.73 Personal history of transient ischemic attack (TIA), and cerebral infarction without residual deficits; Z85.820 Personal history of malignant melanoma of skin; Z98.49 Cataract extraction status, unspecified eye; Z96.652 Presence of left artificial knee joint; Z87.442 Personal history of urinary calculi
CPT/HCPCS: 36415; 71046; 80053; 80069; 82948; 83036; 83735; 83880; 84100; 84439; 84443; 84480; 84484; 85025; 85027; 93005; 93306; 96374; 96375; 96376; 97161; 97165; 99285; A9270; C9803; G0378; J0360; J1940; U0003; U0005

== ENCOUNTER 2022-08-24 10:21 | Emergency (ER) | payer MEDICARE, OTHER, SELFPAY ==
[2022-08-24] VITALS (14 sets, daily range): BP systolic 161–227; BP diastolic 58–100; PULSE 85–93; RESP 16–24; TEMP 36.8; O2SAT 93–100
--- NOTE | ~2022-08-24 | XR_ITS ---
EXAMINATION: XR chest 1V portable DATE: 08/24/2022 12:05 INDICATION: Hypertension. COPD. TECHNIQUE: AP view of the chest was obtained. COMPARISON: Chest radiograph dated 08/14/2022 under hyperexpanded consistent with provided history of COPD. FINDINGS: Mild increased interstitial pattern and a few peripheral Chichi B-lines in the bilateral lower lung z ones consistent with mild pulmonary edema. In addition there is a persistent hazy airspace opacities in the right lower lung zone and blunting at the bilateral costophrenic angles consistent with small right and tiny left pleural effusions. No pneumothorax. Heart size is normal. Surgical clips at the r ight axilla and supraclavicular region. IMPRESSION: 1. Mild pulmonary edema in the lower lung zones. 2. No significant change in small right and tiny left pleural effusions with associated basilar atele ctasis versus less likely pneumonia. 2. Emphysema. Reviewed, dictated and finalized at location A. IMPRESSION: 1. Mild pulmonary edema in the lower lung zones. 2. No significant change in small right and tiny left pleural effusions with as sociated basilar atelectasis versus less likely pneumonia. 2. Emphysema.
--- NOTE | 2022-08-24 10:30 | ECG_ITS ---
Measurements Intervals [place] Rate: 91 P: 173 [place]: 190 QRS: -54 QRSD: 186 T: 123 QT: 444 QTc: 548 Interpretive Statements SINUS RHYTHM LEFT AXIS DEVIATION LEFT BUNDLE BRANCH BLOCK ABNORMAL ECG COMPARED TO ECG 08/14/2022 11:59:04 FIRST-DEGREE AV BLOCK IS NOT APPRECIATED. Electronically Signed On 08-24-2022 16:13:48 CDT by Thong Bowers M.D.
[2022-08-24] MEDS: IPRATROPIUM BR 0.02% INH SOLN 0.5 MG/2.5 ML VIAL 1 MG INHALATION (10:41)
[2022-08-24] MEDS: ALBUTEROL SULFATE NEB 2.5 MG/3 ML INH 15 MG INHALATION (10:41)
[2022-08-24 10:42] LABS: Basophils Absolute Auto 0.1 K/mm3 (0.0-0.1); Basophils Percent Auto 0.5 % (0.2-1.2); Eosinophils Absolute Auto 0.9 K/mm3 (0-0.3); Hematocrit 36.6 % (42.0-52.0); Hemoglobin 11.3 g/dL (14.0-18.0); Immature Granulocyte Absolute 0.02 K/mm3 (0.00-0.031); Immature Granulocyte Percent A 0.2 % (0-0.5); Lymphocytes Absolute Auto 3.41 K/mm3 (0.9-3.2); Lymphocytes Percent Auto 33.1 % (18.3-44.2); Mean Corpuscular HGB Conc 30.9 g/dl (32-36); Mean Corpuscular Hemoglobin 29.5 pg (26-34); Mean Corpuscular Volume 95.6 fl (80-100); Mean Platelet Volume 11.8 fl (7.4-10.4); Monocytes Absolute Auto 0.7 K/mm3 (0.1-0.6); Monocytes Percent Auto 6.6 % (2.6-8.5); Neutrophils Absolute Auto 5.2 K/mm3 (1.3-6.7); Neutrophils Percent Auto 50.6 % (45.5-73.1); Platelet Count Result 172 k/mm3 (150-375); Red Blood Count 3.83 M/mm3 (4.6-6.20); Red Cell Distribution Width 16.1 % (11.5-14.5); White Blood Count 10.3 K/mm3 (4.5-10.0)
[2022-08-24] MEDS: NITROGLYCERIN SL 0.4 MG TABLET SUBLINGUAL (10:51)
[2022-08-24 11:00] LABS: Alanine Aminotransferase 22 U/L (6-50); Albumin Level 3.7 g/dL (3.5-5.1); Alkaline Phosphatase 90 U/L (38-126); Anion Gap 10 mmol/L (8-16); Aspartate Amino Transferase 42 U/L (17-59); Bilirubin,Total 0.8 mg/dL (0.2-1.3); Blood Urea Nitrogen 21 mg/dL (9-20); Calcium 8.3 mg/dL (8.4-10.2); Carbon Dioxide 21 mmol/L (22-30); Chloride 111 mmol/L (98-107); Estimated CRCL calculation 28 ml/min; Estimated Glomerular Filt Rate 36; Glucose 196 mg/dL (65-110); Potassium 4.1 mmol/L (3.4-5.0); Sodium 142 mmol/L (137-145)
--- NOTE | 2022-08-24 12:54 | ED.SOB ---
HPI - SOB/Dyspnea General Chief Complaint: Shortness of Breath/Dyspnea Stated Complaint: sob x 1.5 hours History of Present Illness HPI Narrative: 82-year-old male presents with 1 hour of difficulty breathing, he has a history of heart failure and COPD, did try using some inhalers with some improvement. Had already received steroids and breathing treatment with EMS. Denies chest pain. Related Data Home Medications Medication Instructions Recorded Confirmed B Complex-Vitamin B12 2,500 mcg BYMOUTH DAILY 12/03/21 08/14/22 levothyroxine 75 mcg tablet 75 mcg PO DAILY 12/03/21 08/14/22 apixaban 2.5 mg tablet (Eliquis) 2.5 mg PO BID 08/14/22 08/14/22 cetirizine 10 mg tablet 10 mg PO DAILY 08/14/22 08/14/22 guaifenesin 400 mg tablet 400 mg PO Q4H PRN Cough 08/14/22 08/14/22 lisinopril 5 mg tablet 5 mg PO DAILY 08/14/22 08/14/22 Allergies Allergy/AdvReac Type Severity Reaction Status Date / Time No Known Allergies Allergy Mild Verified 08/24/22 10:55 Review of Systems Review of Systems: CONST: No fever. HEENT: No sore throat C/V: No chest pain RESP: Difficulty breathing GI: No abdominal pain : No dysuria. M/S: No leg swelling SKIN: No rash. 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 Carotid artery occlusion 100% occluded left internal carotid artery. 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 He has 2 children. He continues to smoke 1/2 ppd. he worked in [employer]. He denies any alcohol marijuana or illicit drugs. He denies any power divorce attorney for healthcare. Code status full code Smoking packs per day: 0.5 Smoking cigarettes per day: 10.0 Years smoked: 78 Smoking pack-years: 39.00 Smoking status: Heavy tobacco smoker Tobacco type: cigarettes Alcohol intake: current Drinks per week: 20 Substance use: never Spiritual care concerns: No Exam Narrative: EXAMINATION OF ORGAN SYSTEMS/BODY AREAS: Constitutional: Vital signs per nursing GENERAL: Somewhat dyspneic HEAD: Normal with no signs of head trauma. EYES: EOMI, conjunctiva normal ENT: Hearing grossly intact LUNGS: Labored respirations with wheezing bilaterally HEART: [Regular rate and rhythm] ABD: [Soft], [nontender to palpation] EXT: Normal range of motion SKIN: [No rashes or lesions.] NEURO: [Alert and oriented x 3. No gross focal sensory or strength deficits.] PSYCH: Normal affect Course Vital Signs Vital signs: Vital Signs Temperature 98.3 F 08/24/22 10:22 Pulse Rate 93 08/24/22 10:22 Respiratory Rate 24 H 08/24/22 10:22 Blood Pressure 227/100 H 08/24/22 10:22 Pulse Oximetry 99 08/24/22 10:22 Oxygen Delivery Nasal Cannula 08/24/22 10:22 Oxygen Flow
--- NOTE | 2022-08-24 13:10 | PC.NURSE ---
Pts daughter Maude called an updated. 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
[2022-08-24] MEDS: FUROSEMIDE INJ 40 MG/4 ML VIAL IV PUSH (13:14)
[2022-08-24 13:18] LABS: SARS-CoV-2 RNA PCR Negative
== END 2022-08-24 14:45 | disposition home or self-care (01) ==
PROVIDERS: Emergency Provider Emergency Medicine; PCP Emergency Medicine
DX: J96.01 Acute respiratory failure with hypoxia (principal); I50.9 Heart failure, unspecified; J44.1 Chronic obstructive pulmonary disease with (acute) exacerbation; Z20.822 Contact with and (suspected) exposure to COVID-19; I25.10 Atherosclerotic heart disease of native coronary artery without angina pectoris; E11.22 Type 2 diabetes mellitus with diabetic chronic kidney disease; I13.0 Hypertensive heart and chronic kidney disease with heart failure and stage 1 through stage 4 chronic kidney disease, or unspecified chronic kidney disease; N18.32 Chronic kidney disease, stage 3b; E11.51 Type 2 diabetes mellitus with diabetic peripheral angiopathy without gangrene; I73.9 Peripheral vascular disease, unspecified; D64.9 Anemia, unspecified; E03.9 Hypothyroidism, unspecified; F17.210 Nicotine dependence, cigarettes, uncomplicated; Z95.5 Presence of coronary angioplasty implant and graft; Z85.820 Personal history of malignant melanoma of skin; Z95.1 Presence of aortocoronary bypass graft; Z96.652 Presence of left artificial knee joint; Z98.42 Cataract extraction status, left eye; Z86.73 Personal history of transient ischemic attack (TIA), and cerebral infarction without residual deficits; I44.7 Left bundle-branch block, unspecified; Z79.01 Long term (current) use of anticoagulants
CPT/HCPCS: 36415; 71045; 80053; 85025; 93005; 94640; 96374; 99284; A9270; J1940; U0003; U0005

== ENCOUNTER 2022-08-30 11:17 | Inpatient (IN) | payer MEDICARE, OTHER, SELFPAY ==
[2022-08-30] VITALS (14 sets, daily range): BP systolic 149–225; BP diastolic 51–73; PULSE 62–85; RESP 18–24; TEMP 36.4–37.1; O2SAT 95–99; BMI 23.8
--- NOTE | ~2022-08-30 | XR_ITS ---
XR chest 2V 08/30/2022 12:49 Indication: Shortness of breath Procedure: AP view of the chest Comparison: Comparison to multiple prior studies sequentially, with oldest reviewed study dated 12/2021. Findings: Heart size is normal. Airspace disease right mid and lower lung, compatible with pneumonia. Small pleural effusions. No acute osseous abnormality. Impression: 1: Right basilar airspace disease, compatible with pneumonia. 2: Small right pleural effusion. Reviewed, dictated and finalized at location A. Impression: 1: Right basilar airspace disease, compatible with pneumonia. 2: Small right pleural effusion.
--- NOTE | 2022-08-30 11:31 | ECG_ITS ---
Measurements Intervals [place] Rate: 73 P: 58 FL: 221 QRS: -57 QRSD: 189 T: 130 QT: 481 QTc: 532 Interpretive Statements SINUS RHYTHM WITH FIRST DEGREE AV BLOCK LEFT BUNDLE BRANCH BLOCK [120+ ms QRS DURATION, 80+ ms Q/S IN V1/V2, 85+ ms R IN I/aVL/V5/V6] COMPARED TO ECG 08/24/2022 10:38:14 FIRST DEGREE AV BLOCK NOW PRESENT Electronically Signed On 08-30-2022 12:22:19 CDT by Kelly Tyson M.D.
[2022-08-30 11:44] LABS: Alveolar/Arterial O2 Gradient 22.9 mmHg; Base Excess ABG -3.4 mEq/l (+/-2.0); Fractional Inspired Oxygen 21 %; HCO3 ABG 22.1 mEq/l (22.0-26.0); Oxygen Content ABG 15.8 %vol (16.0-22.0); Oxygen Saturation ABG 94.6 % (95.0-100.0); Oxyhemoglobin 92.7 % THb (90.0-100.0); PCO2 ABG 41.9 mmHg (35.0-45.0); PO2 ABG 76.7 mmHg (80.0-100.0); PO2 FiO2 Ratio Arterial Blood 3.65 %; Total Hemoglobin 12.1 g/dL (12.0-18.0); pH ABG 7.341 (7.350-7.450)
[2022-08-30 11:45] LABS: Device ROOM AIR; Modified Allen's Test Pass; Site Drawn LEFT RADIAL
[2022-08-30 12:26] LABS: Basophils Percent Auto 0.3 % (0.2-1.2); Eosinophils Absolute Auto 0.4 K/mm3 (0-0.3); Eosinophils Percent Auto 2.6 % (0-4.4); Hematocrit 32.5 % (42.0-52.0); Hemoglobin 10.2 g/dL (14.0-18.0); Immature Granulocyte Absolute 0.07 K/mm3 (0.00-0.031); Immature Granulocyte Percent A 0.5 % (0-0.5); Lymphocytes Absolute Auto 1.75 K/mm3 (0.9-3.2); Lymphocytes Percent Auto 11.8 % (18.3-44.2); Mean Corpuscular HGB Conc 31.4 g/dl (32-36); Mean Corpuscular Hemoglobin 29.3 pg (26-34); Mean Corpuscular Volume 93.4 fl (80-100); Mean Platelet Volume 11.3 fl (7.4-10.4); Monocytes Absolute Auto 0.8 K/mm3 (0.1-0.6); Monocytes Percent Auto 5.5 % (2.6-8.5); Neutrophils Absolute Auto 11.8 K/mm3 (1.3-6.7); Neutrophils Percent Auto 79.3 % (45.5-73.1); Platelet Count Result 199 k/mm3 (150-375); Red Blood Count 3.48 M/mm3 (4.6-6.20); Red Cell Distribution Width 15.9 % (11.5-14.5); White Blood Count 14.9 K/mm3 (4.5-10.0)
[2022-08-30 12:32] LABS: Anion Gap 9 mmol/L (8-16); Blood Urea Nitrogen 20 mg/dL (9-20); Calcium 7.8 mg/dL (8.4-10.2); Carbon Dioxide 25 mmol/L (22-30); Chloride 109 mmol/L (98-107); Estimated CRCL calculation 29 ml/min; Estimated Glomerular Filt Rate 32; Glucose 178 mg/dL (65-110); Potassium 3.2 mmol/L (3.4-5.0); Sodium 143 mmol/L (137-145)
[2022-08-30 12:41] LABS: NT Pro B Type Natriuretic Pept 10600 pg/mL (5-100)
--- NOTE | 2022-08-30 13:27 | ED.SOB ---
HPI - SOB/Dyspnea General Chief Complaint: Shortness of Breath/Dyspnea Stated Complaint: SOB Time Seen by Provider: 08/30/22 11:27 History of Present Illness HPI Narrative: Patient is an 82-year-old male who presents ER with shortness of breath. Reports sudden onset today. Blood pressure in the 200s for EMS. They gave Solu-Medrol and a breathing treatment. Patient has history of COPD as well as CHF. Patient denies any fevers or chills or sweats. No new productive cough. Patient dyspneic upon arrival here. Diminished breath sounds throughout with some faint wheezing. Patient does not typically wear oxygen at home but is requiring 2 L at this time Related Data Home Medications Medication Instructions Recorded Confirmed B Complex-Vitamin B12 2,500 mcg BYMOUTH DAILY 12/03/21 08/14/22 levothyroxine 75 mcg tablet 75 mcg PO DAILY 12/03/21 08/14/22 apixaban 2.5 mg tablet (Eliquis) 2.5 mg PO BID 08/14/22 08/14/22 cetirizine 10 mg tablet 10 mg PO DAILY 08/14/22 08/14/22 guaifenesin 400 mg tablet 400 mg PO Q4H PRN Cough 08/14/22 08/14/22 lisinopril 5 mg tablet 5 mg PO DAILY 08/14/22 08/14/22 Allergies Allergy/AdvReac Type Severity Reaction Status Date / Time No Known Allergies Allergy Mild Verified 08/24/22 10:55 Review of Systems Review of Systems: All systems reviewed & are unremarkable except as noted in HPI and below Constitutional: Constitutional: Denies chills, Denies fatigue and Denies fever(s) ENT: Denies nasal congestion and Denies sore throat Cardiovascular: Cardiovascular: Denies chest pain and Denies rapid heart rate Respiratory: Respiratory: Denies cough, Reports dyspnea and Denies wheezing Gastrointestinal: Gastrointestinal: Denies abdominal pain, Denies nausea and Denies vomiting Musculoskeletal: Musculoskeletal: Denies arthralgias and Denies joint swelling PMFSH Past Medical History Medical History 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 Carotid artery occlusion 100% occluded left internal carotid artery. 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 He has 2 children. He continues to smoke 1/2 ppd. he worked in [employer]. He denies any alcohol marijuana or illicit drugs. He denies any power associate attorney for healthcare. Code status full code Smoking packs per day: 0.5 Smoking cigarettes per day: 10.0 Years smoked: 78 Smoking pack-years: 39.00 Smoking status: Heavy tobacco smoker Tobacco type: cigarettes Alcohol intake: current Drinks per week: 20 Substance use: never Spiritual care concerns: No Exam Narrative: GENERAL: Ill-appearing, well-nourished, and in no acute distress. HEAD: Normocephalic, atraumatic. EYES: PERRL and EOMI. ENT: Mucous membranes moist. CHEST: Diminished throughout with faint wheezing. Mild respiratory distress.
[2022-08-30] MEDS: FUROSEMIDE INJ 40 MG/4 ML VIAL IV PUSH ×2 (14:06→20:21)
[2022-08-30 14:18] LABS: SARS-CoV-2 RNA PCR Negative
--- NOTE | 2022-08-30 15:30 | ADMGEN ---
This patient, Angel Venegas, was admitted to IMU Room 200-01 AT 1524. Patient/family oriented to hospital policies and general routines including ID bracelet, bed and alarms, visiting hours, pain management, procedures, bathroom and other care routines, personal items, smoking policy, room service/diet, and visiting hours. Information on how to activate the Rapid Response Team has been discussed. Patient/Family are encouraged to report perceived risks to care and to ask questions if they do not understand what they are told or what they should do.
--- NOTE | 2022-08-30 18:30 | PM.IMHP ---
H&P: HPI History of Present Illness Date/Time: 08/30/22 18:30 Chief Complaint: Shortness of breath. Narrative: This is a very pleasant 82-year-old male smoker with history of COPD and congestive heart failure who presented to the emergency department from home for evaluation of shortness of breath. he has been feeling pretty good and felt fine when he went to bed last night. When he was getting up and about for the day he started to feel short of breath which quickly escalated to significant shortness of breath associated with sweats and sensations of racing heart. Emergency services were summoned and EMS gave him Solu-Medrol and a nebulizer in route to the hospital. His blood pressure was 225/73 on arrival to the emergency department and is remaining vital signs were pretty stable. Chest x-ray on arrival showed right basilar airspace disease and he is being admitted in this setting. Also of note his BNP was quite a bit elevated from baseline at 10,600. With further questioning he has noticed increasing lower extremity edema over the last 2 days. He denies fever, chills, sweats, sinus congestion, sore throat, cough, nausea, vomiting, and sick contacts. He also denies syncope, presyncope, chest pain, pleuritic pain, and current palpitations. No calf pain. Review of Systems Review of Systems: Twelve systems were reviewed and are negative except for as per HPI. 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 Carotid artery occlusion 100% occluded left internal carotid artery. CHF (congestive heart failure), NYHA class I Chronic anemia Chronic renal failure, stage 3b DM2 (diabetes mellitus, type 2) Heart failure with reduced ejection fraction EF 20 to 25% echocardiogram 08/17/2022. 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 cataract surgery Peripheral vascular disease Surgical History Surgical History H/O vasectomy History of cataract extraction History of coronary artery stent placement History of femoropopliteal bypass History of removal of pigmented skin lesion melanoma right forearm History of total left knee replacement Total knee replacement status Family History Family History Mother Heart disease Parkinson disease type 9 Father Heart disease Lung disease Sibling Heart disease Social History Social History (Updated 08/30/22 @ 18:25 by Deirdre Valero PA-C) Social History: The patient is and lives in [place]. He has 2 children. Retired. Continues smoke about pack cigarettes day. Designates his daughter Adriana Garcia as his surrogate decision maker. Code status: Do not resuscitate. Smoking packs per day: 0.5 Smoking cigarettes per day: 10.0 Years smoked: 78 Smoking pack-years: 39.00 Smoking status: Current every day smoker Tobacco type: cigarettes Second hand tobacco smoke exposure: Yes Additional smoking assessment comments: Patient states he started smoking when he was 4 years old. Alcohol intake: current Drinks per week: 14 Substance use: never Substance use type: does not use Has the Lack of Transportation Kept You From Medical Appointments or From Getting Medications?: No Within the Past 12 Months, Were You Worried Whether Your Food Would Run Out Before You Got Money to Buy More?: Never True What is Your Housing Situation Today?: I Have Housing Are You Worried That in the Next 2 Months, You May Not Have Your Own Housing to Live In?: No Do You Have Trouble Paying Your Heating Or Electricity Bill?: No D
[2022-08-30] MEDS: POTASSIUM CHLORIDE 20 MEQ TABLET 40 MEQ PO (19:38)
[2022-08-30 21:22] LABS: Glucose Point of Care 323 mg/dl (65-105)
[2022-08-31] VITALS (8 sets, daily range): BP systolic 138–176; BP diastolic 58–85; PULSE 63–80; RESP 18–20; TEMP 36.4–36.9; O2SAT 95–99
[2022-08-31 05:56] LABS: Hematocrit 30.7 % (42.0-52.0); Hemoglobin 9.8 g/dL (14.0-18.0); Mean Corpuscular HGB Conc 31.9 g/dl (32-36); Mean Corpuscular Volume 90.8 fl (80-100); Mean Platelet Volume 11.5 fl (7.4-10.4); Platelet Count Result 193 k/mm3 (150-375); Red Blood Count 3.38 M/mm3 (4.6-6.20); Red Cell Distribution Width 15.8 % (11.5-14.5); White Blood Count 14.3 K/mm3 (4.5-10.0)
[2022-08-31 06:06] LABS: Alanine Aminotransferase 17 U/L (6-50); Albumin Level 3.1 g/dL (3.5-5.1); Alkaline Phosphatase 76 U/L (38-126); Anion Gap 11 mmol/L (8-16); Aspartate Amino Transferase 23 U/L (17-59); Bilirubin,Total 0.2 mg/dL (0.2-1.3); Blood Urea Nitrogen 24 mg/dL (9-20); Carbon Dioxide 26 mmol/L (22-30); Chloride 105 mmol/L (98-107); Estimated CRCL calculation 24 ml/min; Estimated Glomerular Filt Rate 30; Glucose 141 mg/dL (65-110); Magnesium 1.8 mg/dL (1.6-2.3); Potassium 3.6 mmol/L (3.4-5.0); Sodium 142 mmol/L (137-145)
[2022-08-31] MEDS: LEVOTHYROXINE SODIUM 75 MCG TABLET PO (06:42)
[2022-08-31] MEDS: VITAMIN B COMPLEX CAPSULE 1 CAP PO (08:00)
[2022-08-31] MEDS: FUROSEMIDE INJ 40 MG/4 ML VIAL IV PUSH (08:00)
[2022-08-31] MEDS: lisinopriL 5 MG TABLET PO (08:00)
[2022-08-31] MEDS: ATORVASTATIN 40 MG TABLET PO (08:00)
[2022-08-31] MEDS: CYANOCOBALAMIN 1,000 MCG TABLET 2000 MCG PO (08:00)
[2022-08-31] MEDS: APIXABAN 2.5 MG TABLET PO (08:00)
--- NOTE | 2022-08-31 11:51 | PM.IMPN ---
Progress Note: A&P Assessment and Plan (1) Pneumonia involving right lung: Code(s): J18.9 - Pneumonia, unspecified organism Status: Acute Assessment and Plan: Chest x-ray shows right basilar airspace disease compatible with pneumonia and he has been started on azithromycin and ceftriaxone. (2) Heart failure with reduced ejection fraction: Code(s): I50.20 - Unspecified systolic (congestive) heart failure Status: Acute Assessment and Plan: responded well to IV diuresis with Lasix. creatinine rising. Hold Lasix for now. Monitor volume status closely with I/O and daily weights. (3) Chronic kidney disease, stage 3: Code(s): N18.30 - Chronic kidney disease, stage 3 unspecified Status: Acute Assessment and Plan: Creatinine is a bit higher than his baseline. hold Lasix for now. Monitor strict I/O and renal function (4) Hypertension: Code(s): I10 - Essential (primary) hypertension Status: Acute Assessment and Plan: continue antihypertensives and monitor; make changes according to how he trends. (5) Hypothyroidism: Code(s): E03.9 - Hypothyroidism, unspecified Status: Acute Assessment and Plan: Continue levothyroxine. TSH normal in early August 2022. (6) Hypokalemia: Code(s): E87.6 - Hypokalemia Status: Acute Assessment and Plan: Potassium will be replaced and monitored. Subjective Date/time seen: 08/31/22 11:51 not short of breath this morning. On room air. No chest pain Exam Narrative: General: Well-developed gentleman in the semi-Fitzgerald position in bed in no distress. Weight: 73 kilograms. BMI: 23.8. HEENT: PERRL, EOMI. Sclera anicteric. Oral mucosa moist. Neck: Supple. No significant JVD. Respiratory: Respirations are nonlabored. Lung sounds are a bit diminished throughout with faint rales in the right lower lobe. Cardiovascular: Regular rate and rhythm with S1-S2. Gastrointestinal: Abdomen is soft, nontender, and nondistended with positive bowel sounds. No organomegaly. Skin: Warm and dry. Extremities: No cyanosis or clubbing. Trace tyrone ankle edema bilaterally. No palpable knots or cords. Negative Yang sign bilaterally. Neurological: Alert. Cranial nerves 2-12 are grossly intact. No gross focal deficits to casual conversation. Psychiatric: Pleasant and cooperative with normal mood and affect. Judgment and insight intact. He is in good spirits. Objective Data Vital Signs Vital Signs: Vital Signs - 24 hr 08/30/22 13:26 08/30/22 14:52 08/30/22 15:32 Temperature 98.6 F Pulse Rate 62 77 72 Respiratory Rate 18 20 24 H Blood Pressure 179/63 H 183/67 H 163/58 H Pulse Oximetry 99 98 98 Oxygen Delivery 08/30/22 16:00 08/30/22 16:00 08/30/22 16:00 Temperature Pulse Rate 71 Respiratory Rate Blood Pressure 149/60 H Pulse Oximetry 98 98 Oxygen Delivery Room Air 08/30/22 18:00 08/30/22 19:41 08/30/22 20:00 Temperature 98.7 F Pulse Rate 82 82 82 Respiratory Rate 18 18 Blood Pressure 152/51 H Pulse Oximetry 97 97 Oxygen Delivery Room Air 08/30/22 20:00 08/30/22 22:00 08/30/22 23:30 Temperature 97.6 F Pulse Rate 80 85 84 Respiratory Rate 18 Blood Pressure 168/55 H Pulse Oximetry 99 Oxygen Delivery 08/30/22 23:33 08/31/22 00:00 08/31/22 01:20 Temperature Pulse Rate 84 80 76 Respiratory Rate 18 Blood Pressure Pulse Oximetry 99 Oxygen Delivery Room Air 08/31/22 04:00 08/31/22 04:00 08/31/22 04:00 Temperature 98.1 F Pulse Rate 67 67 63 Respiratory Rate 18 18 Blood Pressure 138/85 Pulse Oximetry 99 99 Oxygen Delivery Room Air 08/31/22 05:24 08/31/22 08:00 08/31/22 08:00 Temperature 98.5 F Pulse Rate 65 75 Respiratory Rate 18 Blood Pressure 173/58 H Pulse Oximetry 95 95 Oxygen Delivery Room Air 08/31/22 08:00 08/31/22 10:00 Temperature Pulse Rat
--- NOTE | 2022-08-31 14:11 | PC.NURSE ---
This patient, Angel Venegas, was transferred to [ [id number]] on 08/31/22 at 1411. Personal belongings sent with patient. Report given to [REGINA Tipton @ [phone] ]. Appropriate documentation sent with patient.
--- NOTE | 2022-09-01 02:13 | PC.NURSE ---
At 2:05 09/01/2022 Patient had episode of shortness of breath. Patient had episode while lying down and then raised self up, where oxygen was checked and pulse oxygen read 97 percent.
[2022-09-01] MEDS: guaiFENesin 12 HR 600 MG TABCR 1200 MG PO (02:36)
[2022-09-01] MEDS: ALBUTEROL SULFATE (*SP) AEROSOL 1 PUFF 2 PUFF INHALATION (02:58)
[2022-09-01 03:00] VITALS: PULSE 78
[2022-09-01 05:42] VITALS: BP 179/84; PULSE 72; RESP 16; TEMP 36.4; O2SAT 97
[2022-09-01] MEDS: LEVOTHYROXINE SODIUM 75 MCG TABLET PO (05:45)
[2022-09-01 06:39] LABS: Anion Gap 12 mmol/L (8-16); Blood Urea Nitrogen 26 mg/dL (9-20); Calcium 8.2 mg/dL (8.4-10.2); Carbon Dioxide 29 mmol/L (22-30); Chloride 99 mmol/L (98-107); Estimated CRCL calculation 27 ml/min; Estimated Glomerular Filt Rate 34; Glucose 107 mg/dL (65-110); Potassium 3.5 mmol/L (3.4-5.0); Sodium 140 mmol/L (137-145)
[2022-09-01] MEDS: CYANOCOBALAMIN 1,000 MCG TABLET 2000 MCG PO (10:05)
[2022-09-01] MEDS: ATORVASTATIN 40 MG TABLET PO (10:06)
[2022-09-01] MEDS: lisinopriL 5 MG TABLET PO (10:06)
[2022-09-01] MEDS: VITAMIN B COMPLEX CAPSULE 1 CAP PO (10:06)
--- NOTE | 2022-09-01 13:40 | PM.IMPN ---
Progress Note: A&P Assessment and Plan (1) Pneumonia involving right lung: Code(s): J18.9 - Pneumonia, unspecified organism Status: Acute Assessment and Plan: Chest x-ray shows right basilar airspace disease compatible with pneumonia and he has been started on azithromycin and ceftriaxone. Pt is on day 3 of IV abx, wcc remains high Pt has no cough or fever symptoms are much better blood culture and sputum culture negative to date (2) Heart failure with reduced ejection fraction: Code(s): I50.20 - Unspecified systolic (congestive) heart failure Status: Acute Assessment and Plan: Pt responded well to IV diuresis with Lasix. creat is 1.9 continue to watch baseline appears to be 1.3 (3) Chronic kidney disease, stage 3: Code(s): N18.30 - Chronic kidney disease, stage 3 unspecified Status: Acute Assessment and Plan: Creatinine is a bit higher than his baseline. hold Lasix for now. Monitor strict I/O and monitoring renal function (4) Hypertension: Code(s): I10 - Essential (primary) hypertension Status: Acute Assessment and Plan: continue antihypertensives and monitor (5) Hypothyroidism: Code(s): E03.9 - Hypothyroidism, unspecified Status: Acute Assessment and Plan: Continue levothyroxine. TSH normal in early August 2022. (6) Hypokalemia: Code(s): E87.6 - Hypokalemia Status: Acute Assessment and Plan: Potassium is NL after replacement Subjective Date/time seen: 09/01/22 13:40 82-year-old male smoker with history of COPD and congestive heart failure who presented to the emergency department from home for evaluation of shortness of breath. he has been feeling pretty good and felt fine when he went to bed last night. When he was getting up and about for the day he started to feel short of breath which quickly escalated to significant shortness of breath associated with sweats and sensations of racing heart. Emergency services were summoned and EMS gave him Solu-Medrol and a nebulizer in route to the hospital. His blood pressure was 225/73 on arrival to the emergency department and is remaining vital signs were pretty stable. Chest x-ray on arrival showed right basilar airspace disease and he is being admitted in this setting. Pt being treated for pneumonia. Wcc remain high pt appears much better since admission no cough or fever reported Exam Narrative: General: Well-developed gentleman Respiratory: faint rales in the right lower lobe. Cardiovascular: Regular rate and rhythm with S1-S2. Gastrointestinal: Abdomen is soft, nontender, and nondistended with positive bowel sounds. No organomegaly. Skin: Warm and dry. Extremities: No cyanosis or clubbing. Trace tyrone ankle edema bilaterally. No palpable knots or cords. Negative Yang sign bilaterally. Neurological: Alert. Cranial nerves 2-12 are grossly intact. No gross focal deficits to casual conversation. Psychiatric: Pleasant and cooperative with normal mood and affect. Judgment and insight intact. He is in good spirits. Objective Data Vital Signs Vital Signs: Vital Signs - 24 hr 08/31/22 14:36 08/31/22 22:00 09/01/22 03:00 Temperature 36.4 C 36.4 C L Pulse Rate 72 72 78 Respiratory Rate 20 18 Blood Pressure 176/84 H 168/83 H Pulse Oximetry 98 99 09/01/22 05:42 Temperature 36.4 C Pulse Rate 72 Respiratory Rate 16 Blood Pressure 179/84 H Pulse Oximetry 97 Intake/Output Intake/Output: Intake & Output 08/29/22 08/30/22 08/31/22 09/01/22 23:59 23:59 23:59 23:59 Intake Total 300 1280 440 Output Total 550 670 Balance -250 610 440 Meds/Results Medications: Active Medications Generic Name Dose Route Start Last Admin Trade Name Freq PRN Reason Stop Dose Admin Acetaminophen 650 mg 08/30/22 18:31 Acetaminophen 325 Mg Tablet PO Q6H PRN Mild Pain (1-3) or Fever Albuterol 2
[2022-09-01 16:00] VITALS: BP 133/60; PULSE 66; RESP 16; TEMP 36.4; O2SAT 97
[2022-09-01 23:01] VITALS: BP 163/98; PULSE 70; RESP 18; TEMP 36.3; O2SAT 97
[2022-09-02] MEDS: LEVOTHYROXINE SODIUM 75 MCG TABLET PO (06:03)
[2022-09-02 06:24] VITALS: BP 189/68; PULSE 71; RESP 18; TEMP 36.4; O2SAT 98
[2022-09-02 07:44] LABS: Hematocrit 34.7 % (42.0-52.0); Mean Corpuscular HGB Conc 31.7 g/dl (32-36); Mean Corpuscular Hemoglobin 29.3 pg (26-34); Mean Corpuscular Volume 92.5 fl (80-100); Mean Platelet Volume 10.9 fl (7.4-10.4); Platelet Count Result 216 k/mm3 (150-375); Red Blood Count 3.75 M/mm3 (4.6-6.20); Red Cell Distribution Width 15.9 % (11.5-14.5); White Blood Count 11.2 K/mm3 (4.5-10.0)
[2022-09-02 07:50] LABS: Anion Gap 10 mmol/L (8-16); Blood Urea Nitrogen 26 mg/dL (9-20); Carbon Dioxide 30 mmol/L (22-30); Chloride 100 mmol/L (98-107); Estimated CRCL calculation 28 ml/min; Estimated Glomerular Filt Rate 36; Glucose 89 mg/dL (65-110); Potassium 3.4 mmol/L (3.4-5.0); Sodium 140 mmol/L (137-145)
[2022-09-02] MEDS: lisinopriL 5 MG TABLET PO (08:40)
[2022-09-02] MEDS: ATORVASTATIN 40 MG TABLET PO (08:40)
[2022-09-02] MEDS: CYANOCOBALAMIN 1,000 MCG TABLET 2000 MCG PO (08:41)
[2022-09-02] MEDS: APIXABAN 2.5 MG TABLET PO (08:41)
[2022-09-02] MEDS: VITAMIN B COMPLEX CAPSULE 1 CAP PO (08:41)
--- NOTE | 2022-09-02 09:50 | PM.IMPN ---
Progress Note: A&P Assessment and Plan (1) Pneumonia involving right lung: Code(s): J18.9 - Pneumonia, unspecified organism Status: Acute Assessment and Plan: Chest x-ray shows right basilar airspace disease compatible with pneumonia and he has been started on azithromycin and ceftriaxone. Pt is on day 4 of IV abx, wcc remains high Pt has no cough or fever symptoms are much better blood culture and sputum culture negative to date (2) Heart failure with reduced ejection fraction: Code(s): I50.20 - Unspecified systolic (congestive) heart failure Status: Acute Assessment and Plan: mild JACKSON on admission with creatinine 2.1 baseline creatinine 1.3. BNP was elevated .Creatinine continues to improve (3) Chronic kidney disease, stage 3: Code(s): N18.30 - Chronic kidney disease, stage 3 unspecified Status: Acute Assessment and Plan: Creatinine is a bit higher than his baseline. hold Lasix for now. Monitor strict I/O and monitoring renal function (4) Hypertension: Code(s): I10 - Essential (primary) hypertension Status: Acute Assessment and Plan: continue antihypertensives and monitor (5) Hypothyroidism: Code(s): E03.9 - Hypothyroidism, unspecified Status: Acute Assessment and Plan: Continue levothyroxine. TSH normal in early August 2022. (6) Hypokalemia: Code(s): E87.6 - Hypokalemia Status: Acute Assessment and Plan: Potassium is NL after replacement Subjective Date/time seen: 09/02/22 09:50 Review of Systems Review of Systems: All systems reviewed & are unremarkable except as noted in HPI and below Exam Narrative: General: Well-developed gentleman, not in acute distress Respiratory: faint rales in the right lower lobe. no respiratory distress on room air Cardiovascular: Regular rate and rhythm with S1-S2. Gastrointestinal: Abdomen is soft, nontender, and nondistended with positive bowel sounds. No organomegaly. Skin: Warm and dry. Extremities: No cyanosis or clubbing. Trace tyrone ankle edema bilaterally. No palpable knots or cords. Negative Yang sign bilaterally. Neurological: Alert. Cranial nerves 2-12 are grossly intact. No gross focal deficits to casual conversation. Psychiatric: Pleasant and cooperative with normal mood and affect. Judgment and insight intact. He is in good spirits. Objective Data Vital Signs Vital Signs: Vital Signs - 24 hr 09/01/22 16:00 09/01/22 23:01 09/02/22 06:24 Temperature 97.6 F 97.4 F L 97.5 F L Pulse Rate 66 70 71 Respiratory Rate 16 18 18 Blood Pressure 133/60 163/98 H 189/68 H Pulse Oximetry 97 97 98 Oxygen Delivery 09/02/22 07:44 Temperature Pulse Rate Respiratory Rate Blood Pressure Pulse Oximetry Oxygen Delivery Room Air Intake/Output Intake/Output: Intake & Output 08/30/22 08/31/22 09/01/22 09/02/22 23:59 23:59 23:59 23:59 Intake Total 300 1280 1462 250 Output Total 550 670 500 925 Balance -250 610 962 -215 Meds/Results Medications: Active Medications Generic Name Dose Route Start Last Admin Trade Name Freq PRN Reason Stop Dose Admin Acetaminophen 650 mg 08/30/22 18:31 Acetaminophen 325 Mg Tablet PO Q6H PRN Mild Pain (1-3) or Fever Albuterol 2 puff 08/31/22 01:01 09/01/22 02:58 Albuterol Sulfate (*Sp) Aerosol 1 Puff INHALATION 2 puff Q6H PRN Administration Shortness Of Breath Apixaban 2.5 mg 08/31/22 09:00 09/02/22 08:41 Apixaban 2.5 Mg Tablet PO 2.5 mg Q48H MYLES Administration Atorvastatin Calcium 40 mg 08/31/22 09:00 09/02/22 08:40 Atorvastatin 40 Mg Tablet PO 40 mg DAILY MYLES Administration Cyanocobalamin 2,000 mcg 08/31/22 09:00 09/02/22 08:41 Cyanocobalamin 1,000 Mcg Tablet PO 2,000 mcg QAM MYLES Administration Guaifenesin 1,200 mg 08/31/22 01:33 09/01/22 02:36 Guaifenesin 12 Hr 600 Mg Tabcr PO 1,
[2022-09-02 11:09] VITALS: BP 161/70; PULSE 63; RESP 16; O2SAT 97
--- NOTE | 2022-09-02 11:27 | PC.NURSE ---
amlodipine arrived from pharmacy, administered per MD order
[2022-09-02] MEDS: amLODIPine BESYLATE 5 MG TABLET PO (11:29)
--- NOTE | 2022-09-02 11:39 | PM.DS ---
DS: Admitting Diagnosis Discharge Date 09/02/2022 Admitting Diagnosis shortness of breath DS: Discharge Diagnosis Discharge Diagnosis (1) Pneumonia involving right lung: Code(s): J18.9 - Pneumonia, unspecified organism Status: Acute (2) Heart failure with reduced ejection fraction: Code(s): I50.20 - Unspecified systolic (congestive) heart failure Status: Acute (3) Chronic kidney disease, stage 3: Code(s): N18.30 - Chronic kidney disease, stage 3 unspecified Status: Acute (4) Hypertension: Code(s): I10 - Essential (primary) hypertension Status: Acute (5) Hypothyroidism: Code(s): E03.9 - Hypothyroidism, unspecified Status: Acute (6) Hypokalemia: Code(s): E87.6 - Hypokalemia Status: Acute DS: Summary Hospital Course Hospital Course: # right lower lobe pneumonia: Chest x-ray shows right basilar airspace disease compatible with pneumonia and he has been started on azithromycin and ceftriaxone. ? Pt is on day 4 of IV abx, wcc High on admission improved with hospitalization. Pt has no cough or fever symptoms are much better blood culture and sputum culture negative to date Will switch antibiotic to Omnicef at discharge for 5 more days. His breathing improved in hospital stay back to baseline at the time of discharge # heart failure with reduced ejection fraction: Received a dose of Lasix x1 on admission and is been reported as increased lower extremity swelling. Lower extremity edema has resolved with 1 dose of Lasix. With slight bump in creatinine further diuresis was held. #?? mild JACKSON on admission with creatinine 2.1 baseline creatinine 1.3.? BNP was? elevated .Creatinine continues to improve # CKD stage 3: Creatinine is a bit higher than his baseline. ? hold Lasix for now. Monitor strict I/O and monitoring renal function # hypertension: continue antihypertensives and monitor . Added amlodipine 5 mg for better blood pressure control. Along with lisinopril 5 mg daily. Increase lisinopril was not done as there was JACKSON # hypothyroidism: ?Continue levothyroxine. TSH normal in early August 2022. # hypokalemia: ?Potassium is NL after replacement Time Spent with Patient Time attestation: Total time spent providing and/or coordinating discharge services:4045 minutes Exam Narrative: General: Well-developed gentleman, not in acute distress Respiratory: coarse breath sounds bilaterally no respiratory distress on room air Cardiovascular: Regular rate and rhythm with S1-S2. Gastrointestinal: Abdomen is soft, nontender, and nondistended with positive bowel sounds. No organomegaly. Skin: Warm and dry. Extremities: No cyanosis or clubbing. Trace tyrone ankle edema bilaterally. No palpable knots or cords. Negative Yang sign bilaterally. Neurological: Alert. Cranial nerves 2-12 are grossly intact. No gross focal deficits to casual conversation. Psychiatric: Pleasant and cooperative with normal mood and affect. Judgment and insight intact. He is in good spirits. DS: Data Data Completed and Pending Labs on day of discharge: Labs from last 24 hours 09/02/22 09/02/22 07:28 07:27 WBC 11.2 H RBC 3.75 L Hgb 11.0 L Hct 34.7 L MCV 92.5 MCH 29.3 MCHC 31.7 L RDW 15.9 H Plt Count 216 MPV 10.9 H Sodium 140 Potassium 3.4 Chloride 100 Carbon Dioxide 30 Anion Gap 10 BUN 26 H Creatinine 1.80 H Estim Creat Clear Calc 28 Estimated GFR 36 L Glucose 89 Calcium 8.0 L Preliminary micro results at discharge 08/31/22 08:43 Sputum Culture - Preliminary Sputum 08/30/22 14:01 Blood Culture - Preliminary Blood 08/30/22 13:44 Blood Culture - Preliminary Blood Imaging Radiologist's impression: ITS Impressions Chest X-Ray 08/30/22 12:51 Impression: 1: Right basilar airspace disease, compatible with pneumonia. 2: Small right pleural effusion. Discha
[2022-09-03] LABS: Pneumococcal Antigen Urine Not Detected (Not Detected)
[2022-09-03 14:02] LABS: Mycoplasma IgM Antibody Titer 68 U/mL (<770)
[2022-09-03 19:35] LABS: Legionella pneumophila Ag Ur Not Detected (Not Detected)
== END 2022-09-02 14:22 | disposition home or self-care (01) | DRG 193 ==
LOC: ANHED 11:41 → ANHIMU 14:37 → ANH3MEDSUR 08-31 14:20
PROVIDERS: Family Medicine; Hospitalist; Physician Assistant; Admitting Provider Student in an Organized Health Care Education/Training Program; Emergency Provider Emergency Medicine; PCP Emergency Medicine; Visit Provider Internal Medicine
DX: J18.9 Pneumonia, unspecified organism (principal); I50.23 Acute on chronic systolic (congestive) heart failure; I13.0 Hypertensive heart and chronic kidney disease with heart failure and stage 1 through stage 4 chronic kidney disease, or unspecified chronic kidney disease; N17.9 Acute kidney failure, unspecified; D63.1 Anemia in chronic kidney disease; E87.6 Hypokalemia; E11.22 Type 2 diabetes mellitus with diabetic chronic kidney disease; E11.51 Type 2 diabetes mellitus with diabetic peripheral angiopathy without gangrene; E03.9 Hypothyroidism, unspecified; F17.210 Nicotine dependence, cigarettes, uncomplicated; H54.7 Unspecified visual loss; I25.10 Atherosclerotic heart disease of native coronary artery without angina pectoris; J44.9 Chronic obstructive pulmonary disease, unspecified; N18.32 Chronic kidney disease, stage 3b; Z28.21 Immunization not carried out because of patient refusal; Z20.822 Contact with and (suspected) exposure to COVID-19; Z86.73 Personal history of transient ischemic attack (TIA), and cerebral infarction without residual deficits; Z85.820 Personal history of malignant melanoma of skin; Z95.5 Presence of coronary angioplasty implant and graft; Z98.49 Cataract extraction status, unspecified eye; Z96.652 Presence of left artificial knee joint; Z95.820 Peripheral vascular angioplasty status with implants and grafts; Z66 Do not resuscitate
CPT/HCPCS: 36415; 36600; 71046; 80048; 80053; 82805; 82948; 83735; 83880; 85025; 85027; 86738; 87040; 87070; 87205; 87449; 87899; 93005; 94640; 96365; 96366; 96367; 96375; 96376; 99285; A9270; G0378; J0456; J0696; J1940; U0003; U0005

== ENCOUNTER 2022-09-05 08:46 | Inpatient (IN) | payer MEDICARE, OTHER, SELFPAY ==
[2022-09-05] VITALS (14 sets, daily range): BP systolic 151–225; BP diastolic 53–91; PULSE 75–102; RESP 12–22; TEMP 36.4–37.4; O2SAT 84–100; BMI 23.7
--- NOTE | ~2022-09-05 | US_ITS ---
EXAMINATION: US venous doppler [facility] DATE: 09/06/2022 13:33 INDICATION: edema . TECHNIQUE: Grayscale images without and with compression and Doppler images of the bilateral lower ex tremity veins were obtained. COMPARISON: None FINDINGS: The right common femoral vein, profunda (deep) femoral vein, femoral vein, popliteal vein, peroneal v ein, posterior tibial veins, gastrocnemius vein, and greater saphenous vein are patent. The left common femoral vein, profunda femoral vein, femoral vein, popliteal vein, peroneal vein, pos terior tibial veins, gastrocnemius vein, and greater saphenous vein are patent. IMPRESSION: 1. Patent bilateral lower extremity veins. No evidence of deep venous thrombosis. Reviewed, dictated and finalized at location K. ESSIONAL BASS FISHERMAN IMPRESSION: 1. Patent bilateral lower extremity veins. No evidence of deep venous thrombos is.
--- NOTE | ~2022-09-05 | XR_ITS ---
XR chest 1V portable DATE: 09/05/2022 09:38 INDICATION: Cough. Weakness. TECHNIQUE: Portable upright AP chest on 09/05/2022 at 0932 hours COMPARISON: 08/30/2022 AP and lateral chest FINDINGS: There is patchy infiltrate in the right mid and both lower lung zones, right greater than l eft. Small right pleural effusion is suggested. Heart size appears within normal range. Moderate bilateral hyperinflation. Diffuse osteopenia. IMPRESSION: Patchy right mid and right lower anterolisthesis at left lower lung infiltrate, with mild improvement since 08/30/2022 Reviewed, dictated and finalized at location A.
--- NOTE | 2022-09-05 08:48 | ECG_ITS ---
Measurements Intervals [place] Rate: 99 P: 226 [place]: 150 QRS: -44 QRSD: 194 T: 134 QT: 433 QTc: 557 Interpretive Statements SINUS OR ECTOPIC ATRIAL RHYTHM WITH FIRST DEGREE AV BLOCK ATRIAL PREMATURE COMPLEX LEFT AXIS DEVIATION LEFT BUNDLE BRANCH BLOCK ABNORMAL ECG COMPARED TO ECG 08/30/2022 11:45:57 HEART RATE HAS INCREASED Electronically Signed On 09-05-2022 12:21:12 CDT by Mario Alberto Farah D.O.
--- NOTE | 2022-09-05 08:50 | ED.SOB ---
HPI - SOB/Dyspnea General Chief Complaint: Shortness of Breath/Dyspnea Stated Complaint: SOB Source: RN notes reviewed History of Present Illness HPI Narrative: Patient presents emergency department from home via EMS for shortness of breath. Patient has began to feel short of breath this morning. States he has a history of CHF and COPD. States he does smoke approximately half pack a day of cigarettes states that this morning when he awoke he had been feeling more short of breath with some tightness across his chest states that has been associate with a cough this been nonproductive. He denies any fevers or chills denies any abdominal pain nausea or vomiting. Per EMS he was given 1 breathing treatment as well as Solu-Medrol 125 mg in route Related Data Home Medications Medication Instructions Recorded Confirmed B Complex-Vitamin B12 2,500 mcg BYMOUTH DAILY 12/03/21 08/30/22 levothyroxine 75 mcg tablet 75 mcg PO DAILY 12/03/21 08/30/22 apixaban 2.5 mg tablet (Eliquis) 2.5 mg PO Q48H 08/14/22 08/30/22 cetirizine 10 mg tablet 10 mg PO PRN PRN Allergy Symptoms 08/14/22 08/30/22 guaifenesin 400 mg tablet 400 mg PO Q4H PRN Cough 08/14/22 08/30/22 lisinopril 5 mg tablet 5 mg PO DAILY 08/14/22 08/30/22 albuterol sulfate 90 mcg/actuation 1 puff inhalation PRN PRN 08/30/22 08/30/22 aerosol inhaler Shortness Of Breath Allergies Allergy/AdvReac Type Severity Reaction Status Date / Time No Known Allergies Allergy Mild Verified 08/24/22 10:55 Review of Systems Review of Systems: Gen.: Denies fevers or chills ENT: Denies congestion Respiratory: see HPI CV: Reports chest tightness GI: Denies abdominal pain nausea, emesis or diarrhea Musculoskeletal: Denies back pain or muscle pain Neuro: Denies numbness, tingling, weakness or focal weakness Skin: Denies rash Except as documented, all other systems reviewed and negative FORMERLY [facility], [facility] Past Medical History Medical History 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 Carotid artery occlusion 100% occluded left internal carotid artery. CHF (congestive heart failure), NYHA class I Chronic anemia Chronic renal failure, stage 3b DM2 (diabetes mellitus, type 2) Heart failure with reduced ejection fraction EF 20 to 25% echocardiogram 08/17/2022. 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 He has 2 children. Retired. Continues smoke about pack cigarettes day. Designates his daughter Adriana Garcia as his surrogate decision maker. Code status: Do not resuscitate. Smoking packs per day: 0.5 Smoking cigarettes per day: 10.0 Years smoked: 78 Smoking pack-years: 39.00 Smoking status: Current every day smoker Tobacco type: cigarettes Second hand tobacco smoke exposure: Yes Additional smoking assessment comments: Patient states he started smoking when he was 4 years old. Alcohol intake: current Drinks per week: 14 Substance use: never Sub
[2022-09-05] MEDS: IPRATROPIUM BR 0.02% INH SOLN 0.5 MG/2.5 ML VIAL INHALATION ×2 (09:06→20:25)
[2022-09-05] MEDS: ALBUTEROL SULFATE NEB 2.5 MG/3 ML INH 5 MG INHALATION ×2 (09:06→20:25)
[2022-09-05 09:14] LABS: Alveolar/Arterial O2 Gradient 131.4 mmHg; Base Excess ABG -6.3 mEq/l (+/-2.0); Carboxyhemoglobin 1.6 % THb (0-2.0); Fractional Inspired Oxygen 40 %; HCO3 ABG 21.8 mEq/l (22.0-26.0); Methemoglobin ABG 0.2 %THb (0-1.5); Oxygen Content ABG 16.5 %vol (16.0-22.0); Oxygen Saturation ABG 95.2 % (95.0-100.0); Oxyhemoglobin 92.6 % THb (90.0-100.0); PCO2 ABG 54.6 mmHg (35.0-45.0); PO2 FiO2 Ratio Arterial Blood 2.28 %; Reduced Hemoglobin 5.6 %THb (0-5.0); Total Hemoglobin 12.6 g/dL (12.0-18.0)
[2022-09-05 09:15] LABS: Device NASAL CANNULA; Modified Allen's Test Pass; Site Drawn LEFT RADIAL; pH ABG 7.219 (7.350-7.450)
[2022-09-05 09:18] LABS: Basophils Percent Auto 0.2 % (0.2-1.2); Eosinophils Absolute Auto 0.1 K/mm3 (0-0.3); Eosinophils Percent Auto 0.6 % (0-4.4); Hematocrit 37.2 % (42.0-52.0); Immature Granulocyte Absolute 0.09 K/mm3 (0.00-0.031); Immature Granulocyte Percent A 0.5 % (0-0.5); Lymphocytes Absolute Auto 4.97 K/mm3 (0.9-3.2); Lymphocytes Percent Auto 30.2 % (18.3-44.2); Mean Corpuscular HGB Conc 32.3 g/dl (32-36); Mean Corpuscular Hemoglobin 29.1 pg (26-34); Mean Corpuscular Volume 90.3 fl (80-100); Mean Platelet Volume 11.3 fl (7.4-10.4); Monocytes Absolute Auto 1.1 K/mm3 (0.1-0.6); Monocytes Percent Auto 6.4 % (2.6-8.5); Neutrophils Absolute Auto 10.2 K/mm3 (1.3-6.7); Neutrophils Percent Auto 62.1 % (45.5-73.1); Platelet Count Result 284 k/mm3 (150-375); Red Blood Count 4.12 M/mm3 (4.6-6.20); Red Cell Distribution Width 15.3 % (11.5-14.5); White Blood Count 16.4 K/mm3 (4.5-10.0)
[2022-09-05 09:30] LABS: Alanine Aminotransferase 24 U/L (6-50); Alkaline Phosphatase 105 U/L (38-126); Anion Gap 16 mmol/L (8-16); Aspartate Amino Transferase 48 U/L (17-59); Bilirubin,Total 0.4 mg/dL (0.2-1.3); Blood Urea Nitrogen 27 mg/dL (9-20); Carbon Dioxide 21 mmol/L (22-30); Chloride 99 mmol/L (98-107); Estimated CRCL calculation 22 ml/min; Estimated Glomerular Filt Rate 29; Glucose 294 mg/dL (65-110); Potassium 3.3 mmol/L (3.4-5.0); Sodium 136 mmol/L (137-145)
[2022-09-05 09:31] LABS: Lactic Acid Reflex 3.4 mmol/L (0.7-2.0)
[2022-09-05 09:52] LABS: NT Pro B Type Natriuretic Pept 6640 pg/mL (5-100); Troponin I 0.231 ng/mL (0.000-0.034)
[2022-09-05 09:54] LABS: SARS-CoV-2 RNA PCR Negative
[2022-09-05 10:10] LABS: INR 1.3; Prothrombin Time 15.3 Seconds (11.1-14.7)
[2022-09-05 10:11] LABS: Partial Thromboplastin Time 21.7 SECONDS (22.3-36.8)
[2022-09-05] MEDS: amLODIPine BESYLATE 5 MG TABLET PO (10:51)
[2022-09-05] MEDS: methylPREDNISolone SOD SUCC 125 MG VIAL 60 MG IV PUSH ×2 (10:51→18:08)
[2022-09-05] MEDS: POTASSIUM CHLORIDE 20 MEQ TABLET PO (10:51)
[2022-09-05] MEDS: lisinopriL 5 MG TABLET PO (10:52)
[2022-09-05 11:08] LABS: Magnesium 2.2 mg/dL (1.6-2.3)
[2022-09-05 12:15] LABS: Reflex Lactic Acid Yes or No Add Lactic
[2022-09-05 13:15] LABS: Lactic Acid 2.6 mmol/L (0.7-2.0)
--- NOTE | 2022-09-05 13:50 | PM.IMHP ---
H&P: HPI History of Present Illness Date/Time: 09/05/22 13:30 Chief Complaint: Chest pain and shortness of breath. 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 Carotid artery occlusion 100% occluded left internal carotid artery. CHF (congestive heart failure), NYHA class I Chronic anemia Chronic renal failure, stage 3b DM2 (diabetes mellitus, type 2) Heart failure with reduced ejection fraction EF 20 to 25% echocardiogram 08/17/2022. 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 He has 2 children. Retired. Continues smoke about pack cigarettes day. Designates his daughter Adriana Garcia as his surrogate decision maker. Code status: Do not resuscitate. Smoking packs per day: 0.5 Smoking cigarettes per day: 10.0 Years smoked: 78 Smoking pack-years: 39.00 Smoking status: Current every day smoker Tobacco type: cigarettes Second hand tobacco smoke exposure: Yes Additional smoking assessment comments: Patient states he started smoking when he was 4 years old. Alcohol intake: current Drinks per week: 14 Substance use: never Substance use type: does not use Has the Lack of Transportation Kept You From Medical Appointments or From Getting Medications?: No Within the Past 12 Months, Were You Worried Whether Your Food Would Run Out Before You Got Money to Buy More?: Never True What is Your Housing Situation Today?: I Have Housing Are You Worried That in the Next 2 Months, You May Not Have Your Own Housing to Live In?: No Do You Have Trouble Paying Your Heating Or Electricity Bill?: No Do You Have Trouble Paying For Medicines?: No Are You Currently Unemployed and Looking for Work?: No Highest Level of Education Completed: Grade School Do You Have Trouble With Childcare or the Care of a Family Member?: No Spiritual care concerns: No Meds Home Medications and Allergies Home Medications Medication Instructions Recorded Confirmed Type B Complex-Vitamin B12 2,500 mcg BYMOUTH DAILY 12/03/21 08/30/22 History levothyroxine 75 mcg tablet 75 mcg PO DAILY 12/03/21 08/30/22 History atorvastatin 40 mg tablet 40 mg PO DAILY #30 tabs 12/05/21 08/30/22 Rx apixaban 2.5 mg tablet (Eliquis) 2.5 mg PO Q48H 08/14/22 08/30/22 History cetirizine 10 mg tablet 10 mg PO PRN PRN Allergy Symptoms 08/14/22 08/30/22 History guaifenesin 400 mg tablet 400 mg PO Q4H PRN Cough 08/14/22 08/30/22 History lisinopril 5 mg tablet 5 mg PO DAILY 08/14/22 08/30/22 History albuterol sulfate 90 mcg/actuation 1 puff inhalation PRN PRN 08/30/22 08/30/22 History aerosol inhaler Shortness Of Breath amlodipine 5 mg tablet (Norvasc) 5 mg PO QAM #30 tabs 09/02/22 Rx cefdinir 300 mg capsule 300 mg PO Q12H #10 caps 09/02/22 Rx Allergies Allergy/AdvReac Type Severity Reaction Status Date / Time No Santa
--- NOTE | 2022-09-05 14:11 | ECG_ITS ---
Measurements Intervals [place] Rate: 72 P: 44 [place]: 234 QRS: -53 QRSD: 189 T: 132 QT: 505 QTc: 555 Interpretive Statements SINUS RHYTHM WITH FIRST DEGREE AV BLOCK LEFT AXIS DEVIATION LEFT BUNDLE BRANCH BLOCK ABNORMAL ECG COMPARED TO ECG 09/05/2022 08:52:56 NO SIGNIFICANT CHANGES Electronically Signed On 09-07-2022 11:57:24 [employer] by Mario Alberto Farah D.O.
[2022-09-05] MEDS: HEPARIN SOD/D5W 100 UNITS/ML 25,000 UNITS/250 ML BAG 9 UNITS IV CONT (14:43)
--- NOTE | 2022-09-05 14:45 | PM.IMHP ---
H&P: HPI History of Present Illness Date/Time: 09/05/22 14:45 Chief Complaint: Chest pain and shortness of breath. Narrative: This is a very pleasant 82-year-old male with coronary artery disease, peripheral vascular disease, congestive heart failure, chronic kidney disease, diabetes, hypertension, hypothyroidism, and other comorbidities who presented to the emergency department via EMS from home for evaluation of chest pain and shortness of breath. He was recently admitted to the hospital with pneumonia and has been feeling pretty good since discharge on 09/02/2022. He went to bed last night feeling fine and early this morning he was awakened from sleep with sudden onset shortness of breath and nonradiating left anterior chest tightness. He continues to have a lingering cough which is rarely productive of clear phlegm. He tried using his inhaler at home to no avail and in fact his work of breathing got increasingly worse and EMS was summoned. In route to the hospital he was given a breathing treatment and Solu-Medrol 125 milligrams with improvement. In fact he was without chest pain on arrival to the ER and his symptoms have not recurred. Workup in the ER was significant for a a mildly elevated troponin and increased creatinine from baseline and he is being admitted in this setting. Currently he has no specific complaints and is resting comfortably. He denies fever, chills, sweats, current chest pain, pleuritic pain, palpitations, nausea, vomiting, diarrhea, and sweats. Review of Systems Review of Systems: Twelve systems were reviewed. No fever, chills, or sweats. No cold or flu symptoms. He denies syncope and presyncope. No nausea, vomiting, or diarrhea. No lower extremity edema. Continues to have a mild, nonproductive cough. Except as documented, all other systems were reviewed and are negative. 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 Carotid artery occlusion 100% occluded left internal carotid artery. Chronic anemia Chronic renal failure, stage 3b DM2 (diabetes mellitus, type 2) Heart failure with reduced ejection fraction EF 20 to 25% echocardiogram 08/17/2022. 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 He has 2 children. Retired. Continues smoke about 5 to 6 cigarettes a day. Designates his daughter Adriana Garcia as his surrogate decision maker. Code status: Do not resuscitate. Smoking packs per day: 0.5 Smoking cigarettes per day: 10.0 Years smoked: 78 Smoking pack-years: 39.00 Smoking status: Current every day smoker Second hand tobacco smoke exposure: Yes Additional smoking assessment comments: Patient states he started smoking when he was 4 years old. Alcohol intake: current Drinks per week: 14 Substance use: never Substance use type: does not use Has the Lack of Transportation Kept You From Medical Appointments
[2022-09-05] MEDS: ASPIRIN 81 MG CHEWABLE TABLET 324 MG PO (16:18)
--- NOTE | 2022-09-05 16:41 | ADMGEN ---
This patient, Angel Venegas, was admitted to IMU Room 207-01 at 1541. Patient/family oriented to hospital policies and general routines including ID bracelet, bed and alarms, visiting hours, pain management, procedures, bathroom and other care routines, personal items, smoking policy, room service/diet, and visiting hours. Information on how to activate the Rapid Response Team has been discussed. Patient/Family are encouraged to report perceived risks to care and to ask questions if they do not understand what they are told or what they should do.
[2022-09-05] MEDS: HEPARIN SODIUM 5,000 UNITS/ML VIAL 4000 UNITS IV PUSH (22:13)
[2022-09-06] VITALS (20 sets, daily range): BP systolic 156–183; BP diastolic 54–68; PULSE 72–86; RESP 14–20; TEMP 36.2–36.9; O2SAT 96–100
--- NOTE | 2022-09-06 01:04 | PC.NURSE ---
Daylight Savings Time For Daylight Savings Time Ending in the Fall - Clocks are moved back. For Daylight Savings Time Beginning in the Spring - Clocks are moved ahead. For [facility], the time of change occurs at 0200 hrs. Time is taken from the tower observer. This entry on the patient's chart recognizes the change in time reflected during documentation. Example: 2 entries for vital signs may be charted for 0200 hrs.
[2022-09-06 05:42] LABS: Basophils Percent Auto 0.1 % (0.2-1.2); Hematocrit 31.1 % (42.0-52.0); Hemoglobin 10.4 g/dL (14.0-18.0); Immature Granulocyte Absolute 0.21 K/mm3 (0.00-0.031); Immature Granulocyte Percent A 0.9 % (0-0.5); Lymphocytes Absolute Auto 0.66 K/mm3 (0.9-3.2); Lymphocytes Percent Auto 2.9 % (18.3-44.2); Mean Corpuscular HGB Conc 33.4 g/dl (32-36); Mean Corpuscular Hemoglobin 29.3 pg (26-34); Mean Corpuscular Volume 87.6 fl (80-100); Mean Platelet Volume 11.1 fl (7.4-10.4); Monocytes Absolute Auto 0.6 K/mm3 (0.1-0.6); Monocytes Percent Auto 2.7 % (2.6-8.5); Neutrophils Absolute Auto 21.6 K/mm3 (1.3-6.7); Neutrophils Percent Auto 93.4 % (45.5-73.1); Platelet Count Result 221 k/mm3 (150-375); Red Blood Count 3.55 M/mm3 (4.6-6.20); Red Cell Distribution Width 15.4 % (11.5-14.5); White Blood Count 23.2 K/mm3 (4.5-10.0)
[2022-09-06 05:46] LABS: Partial Thromboplastin Time 134.7 SECONDS (22.3-36.8)
[2022-09-06 05:56] LABS: Alanine Aminotransferase 25 U/L (6-50); Albumin Level 3.3 g/dL (3.5-5.1); Alkaline Phosphatase 86 U/L (38-126); Anion Gap 12 mmol/L (8-16); Aspartate Amino Transferase 110 U/L (17-59); Bilirubin,Total 0.3 mg/dL (0.2-1.3); Blood Urea Nitrogen 35 mg/dL (9-20); Carbon Dioxide 25 mmol/L (22-30); Chloride 101 mmol/L (98-107); Estimated CRCL calculation 24 ml/min; Estimated Glomerular Filt Rate 30; Glucose 144 mg/dL (65-110); Magnesium 2.2 mg/dL (1.6-2.3); Potassium 3.8 mmol/L (3.4-5.0); Sodium 138 mmol/L (137-145)
--- NOTE | 2022-09-06 05:57 | PC.NURSE ---
Entered pt's room to hold heparin for 1hr based on nomogram for ptt of 134.7. Heparin was already on standby. RN's on floor denied placing on standby.
--- NOTE | 2022-09-06 06:06 | PC.NURSE ---
RN entered room to titrate heparin based on ptt of 134.7. Pump found to be on standby already. Rodbuster reported putting on standby 20-30 minutes prior due to limb alert on other arm. Will hold 1hr from postal inspector and decrease rate by protocol.
[2022-09-06] MEDS: LEVOTHYROXINE SODIUM 75 MCG TABLET PO (06:55)
[2022-09-06] MEDS: CYANOCOBALAMIN 1,000 MCG TABLET 2000 MCG BY MOUTH (08:08)
[2022-09-06] MEDS: predniSONE 20 MG TABLET 40 MG PO (08:08)
[2022-09-06] MEDS: CYANOCOBALAMIN 500 MCG TABLET BY MOUTH (08:08)
[2022-09-06] MEDS: lisinopriL 5 MG TABLET PO (08:08)
[2022-09-06] MEDS: amLODIPine BESYLATE 5 MG TABLET PO (08:09)
[2022-09-06] MEDS: LORATADINE 10 MG TABLET PO (08:10)
[2022-09-06] MEDS: ATORVASTATIN 40 MG TABLET PO (08:10)
[2022-09-06] MEDS: ALBUTEROL SULFATE NEB 2.5 MG/3 ML INH 5 MG INHALATION ×3 (08:52→20:35)
[2022-09-06] MEDS: IPRATROPIUM BR 0.02% INH SOLN 0.5 MG/2.5 ML VIAL INHALATION ×3 (08:53→20:35)
--- NOTE | 2022-09-06 11:50 | PM.IMPN ---
Progress Note: A&P Assessment and Plan (1) Non-STEMI (non-ST elevated myocardial infarction): Code(s): I21.4 - Non-ST elevation (NSTEMI) myocardial infarction Status: Acute Assessment and Plan: cardiology consult (2) Shortness of breath: Code(s): R06.02 - Shortness of breath Status: Acute Assessment and Plan: possible pneumonia. Continue antibiotics. Continue prednisone as well for bronchitis. Continue inhalers (3) Hypertension: Code(s): I10 - Essential (primary) hypertension Status: Acute Assessment and Plan: monitor blood pressure (4) Acute on chronic renal insufficiency: Code(s): N28.9 - Disorder of kidney and ureter, unspecified; N18.9 - Chronic kidney disease, unspecified Status: Acute Assessment and Plan: monitor kidney function (5) Heart failure with reduced ejection fraction: Code(s): I50.20 - Unspecified systolic (congestive) heart failure Status: Acute (6) COPD (chronic obstructive pulmonary disease): Code(s): J44.9 - Chronic obstructive pulmonary disease, unspecified Status: Acute Assessment and Plan: continue prednisone (7) Tobacco abuse: Code(s): Z72.0 - Tobacco use Status: Acute (8) Hypokalemia: Code(s): E87.6 - Hypokalemia Status: Acute Subjective Date/time seen: 09/06/22 11:50 No new complaints Exam Narrative: General: alert and oriented Psych: appropriate mood nad affect Eyes: PERRLA Neck: Trachea midline, no new lesions Skin: no changes Lungs: CTA Cardiac: Normal S1,S2, no MGR ABD: soft, nd, nt, nbs Ext: no new lesions, no cce Vasc: Pulses intact Objective Data Vital Signs Vital Signs: Vital Signs - 24 hr 09/05/22 14:51 09/05/22 16:00 09/05/22 16:00 Temperature 98.2 F Pulse Rate 75 77 80 Respiratory Rate 12 16 Blood Pressure 172/70 H 187/62 H Pulse Oximetry 100 100 Oxygen Delivery Oxygen Flow Rate 09/05/22 18:00 09/05/22 20:00 09/05/22 20:28 Temperature 98.1 F Pulse Rate 81 81 80 Respiratory Rate 20 Blood Pressure 157/69 H Pulse Oximetry 99 96 Oxygen Delivery Nasal Cannula Oxygen Flow Rate 2 09/05/22 20:28 09/05/22 20:00 09/05/22 20:00 Temperature Pulse Rate 80 85 Respiratory Rate 20 Blood Pressure Pulse Oximetry 96 Oxygen Delivery Nasal Cannula Oxygen Flow Rate 0.5 09/05/22 22:00 09/05/22 23:43 09/06/22 00:00 Temperature 99.3 F Pulse Rate 94 87 Respiratory Rate 20 Blood Pressure 166/53 H Pulse Oximetry 98 98 Oxygen Delivery Nasal Cannula Oxygen Flow Rate 0.5 09/06/22 00:00 09/06/22 02:00 09/06/22 04:00 Temperature 98.1 F Pulse Rate 82 75 74 Respiratory Rate 20 Blood Pressure 166/62 H Pulse Oximetry 97 Oxygen Delivery Oxygen Flow Rate 09/06/22 04:00 09/06/22 04:00 09/06/22 06:00 Temperature Pulse Rate 75 82 Respiratory Rate Blood Pressure Pulse Oximetry 97 Oxygen Delivery Room Air Oxygen Flow Rate 09/06/22 08:00 09/06/22 08:40 09/06/22 10:07 Temperature 97.1 F L Pulse Rate 79 76 75 Respiratory Rate 14 20 20 Blood Pressure 170/58 H Pulse Oximetry 98 Oxygen Delivery Oxygen Flow Rate Intake/Output Intake/Output: Intake & Output 09/03/22 09/04/22 09/05/22 09/06/22 23:59 23:59 23:59 22:59 Intake Total 370 Output Total 300 550 Balance 70 -550 Meds/Results Medications: Active Medications Generic Name Dose Route Start Last Admin Trade Name Freq PRN Reason Stop Dose Admin Albuterol 5 mg 09/05/22 14:00 09/06/22 08:52 Albuterol Sulfate Neb 2.5 Mg/3 Ml Inh INHALATION 5 mg Q6HRT MYLES Administration Albuterol 1 puff 09/05/22 23:09 Albuterol Sulfate (*Sp) Aerosol 1 Puff INHALATION PRN PRN Shortness Of Breath Amlodipine Besylate 5 mg 09/06/22 09:00 09/06/22 08:09 Amlodipine Besylate 5 Mg Tablet PO 5 mg QAM MYLES Administration A
--- NOTE | 2022-09-06 12:01 | PM.CNCAR ---
Assessment and Plan Assessment and plan (1) Non-STEMI (non-ST elevated myocardial infarction): Code(s): I21.4 - Non-ST elevation (NSTEMI) myocardial infarction Status: Acute Assessment and Plan: significant troponin elevation with a history of underlying CAD however with severe peripheral arterial disease and history of very complicated arterial access requiring brachial approach in 2005. Patient is completely asymptomatic at this time and states he is at baseline. He has a chronic left bundle-branch block confounding ECG interpretation. Very concerning significant troponin elevation presentation with symptoms suggestive acute coronary syndrome. In general, invasive angiography for delineation of his coronary anatomy would be advised, however, as above patient very complicated with additional particular risks regarding his diffuse and severe atherosclerotic disease, acute on chronic renal insufficiency and hypertensive urgency presentation with suboptimally controlled blood pressure. Continue heparin drip for 48 hours. Will keep patient NPO after midnight with decision with regards to proceeding with angiography dependent upon patient's clinical status and renal function. Continue aspirin, initiate clopidogrel 75 mg daily. (2) Heart failure with reduced ejection fraction: Code(s): I50.20 - Unspecified systolic (congestive) heart failure Status: Acute Assessment and Plan: He has known severe LV systolic dysfunction EF 20-25%. He is currently compensated at this time and not requiring diuretic therapy. (3) Hypertensive urgency: Code(s): I16.0 - Hypertensive urgency Status: Acute Assessment and Plan: Addition of hydralazine and nitrates if BP remains elevated and renal function will not permit uptitration of CARLO-I or transition to Entresto. May increase amlodipine to 10 mg daily if BP remains elevated. (4) Cardiomyopathy: Code(s): I42.9 - Cardiomyopathy, unspecified Status: Acute Assessment and Plan: As above. (5) Peripheral arterial disease: Code(s): I73.9 - Peripheral vascular disease, unspecified Status: Acute Assessment and Plan: History of severe peripheral arterial disease, stable prior right lower extremity bypass with limited access options per prior records available. (6) Pneumonia: Code(s): J18.9 - Pneumonia, unspecified organism Status: Acute Assessment and Plan: Per primary service. (7) Acute on chronic renal insufficiency: Code(s): N28.9 - Disorder of kidney and ureter, unspecified; N18.9 - Chronic kidney disease, unspecified Status: Acute Assessment and Plan: Monitor closely. Check BMP in a.m.. Avoid nephrotoxic agents. This increases risk for invasive angiography if considered. (8) COPD (chronic obstructive pulmonary disease): Code(s): J44.9 - Chronic obstructive pulmonary disease, unspecified Status: Acute Assessment and Plan: Per primary service. (9) Tobacco abuse: Code(s): Z72.0 - Tobacco use Status: Acute History of Present Illness History of Present Illness Consult date/time: Date of service:09/06/22 12:01 Requesting physician: Deirdre Valero PA-C Consult reason: chest pain Reason For Visit: [facility] pneumonia, acute resp failure w/hypoxi Narrative: patient is a pleasant 82-year-old male past medical history significant for CAD and severe peripheral arterial disease with RLE bypass, history of severe LV systolic dysfunction EF 20-25% insert carotid occlusion, and history of left heart catheterization 2005 having been performed to the brachial approach, chronic kidney disease, COPD, chronic heart failure with reduced ejection fraction who was recently discharged 09/02/2022 after treatment for acute respiratory failure mild heart failure reduced ejection fraction, right lower lobe pneumonia, acute kidney injury tr
[2022-09-06 13:40] LABS: Partial Thromboplastin Time 51.7 SECONDS (22.3-36.8)
[2022-09-06] MEDS: HEPARIN SODIUM 5,000 UNITS/ML VIAL 4000 UNITS IV PUSH (14:18)
[2022-09-06] MEDS: CLOPIDOGREL BISULFATE 75 MG TABLET PO (14:43)
[2022-09-06] MEDS: ASPIRIN 81 MG ENTERIC TABLET PO (14:44)
[2022-09-06] MEDS: HEPARIN SOD/D5W 100 UNITS/ML 25,000 UNITS/250 ML BAG 13 UNITS IV CONT (15:13)
[2022-09-06 20:49] LABS: Partial Thromboplastin Time 134.7 SECONDS (22.3-36.8)
[2022-09-07] VITALS (35 sets, daily range): BP systolic 147–185; BP diastolic 46–78; PULSE 65–95; RESP 12–20; TEMP 36.4–37.2; O2SAT 94–100
[2022-09-07] MEDS: IPRATROPIUM BR 0.02% INH SOLN 0.5 MG/2.5 ML VIAL INHALATION ×4 (02:50→19:56)
[2022-09-07] MEDS: ALBUTEROL SULFATE NEB 2.5 MG/3 ML INH 5 MG INHALATION ×4 (02:50→19:56)
--- NOTE | 2022-09-07 04:23 | ECG_ITS ---
Measurements Intervals [place] Rate: 78 P: 55 MA: 213 QRS: -52 QRSD: 178 T: 134 QT: 471 QTc: 539 Interpretive Statements SINUS RHYTHM WITH FIRST DEGREE AV BLOCK LEFT AXIS DEVIATION LEFT BUNDLE BRANCH BLOCK ABNORMAL ECG COMPARED TO ECG 09/05/2022 14:11:19 NO SIGNIFICANT CHANGES Electronically Signed On 09-07-2022 16:02:12 MANAGER NON PROFIT by Mario Alberto Farah D.O.
[2022-09-07 06:05] LABS: Partial Thromboplastin Time 77.3 SECONDS (22.3-36.8)
[2022-09-07 08:16] LABS: Hematocrit 33.6 % (42.0-52.0); Hemoglobin 10.3 g/dL (14.0-18.0); Mean Corpuscular HGB Conc 30.7 g/dl (32-36); Mean Corpuscular Hemoglobin 29.3 pg (26-34); Mean Corpuscular Volume 95.7 fl (80-100); Mean Platelet Volume 11.6 fl (7.4-10.4); Platelet Count Result 203 k/mm3 (150-375); Red Blood Count 3.51 M/mm3 (4.6-6.20); Red Cell Distribution Width 16.1 % (11.5-14.5); White Blood Count 21.6 K/mm3 (4.5-10.0)
[2022-09-07 08:22] LABS: Anion Gap 9 mmol/L (8-16); Blood Urea Nitrogen 41 mg/dL (9-20); Carbon Dioxide 24 mmol/L (22-30); Chloride 103 mmol/L (98-107); Estimated CRCL calculation 25 ml/min; Estimated Glomerular Filt Rate 32; Glucose 126 mg/dL (65-110); Potassium 4.8 mmol/L (3.4-5.0); Sodium 136 mmol/L (137-145)
[2022-09-07] MEDS: ASPIRIN 81 MG ENTERIC TABLET PO (08:28)
[2022-09-07] MEDS: CYANOCOBALAMIN 500 MCG TABLET BY MOUTH (08:28)
[2022-09-07] MEDS: CYANOCOBALAMIN 1,000 MCG TABLET 2000 MCG BY MOUTH (08:28)
[2022-09-07] MEDS: LEVOTHYROXINE SODIUM 75 MCG TABLET PO (08:28)
[2022-09-07] MEDS: lisinopriL 5 MG TABLET PO (08:28)
[2022-09-07] MEDS: CLOPIDOGREL BISULFATE 75 MG TABLET PO (08:28)
[2022-09-07] MEDS: LORATADINE 10 MG TABLET PO (08:28)
[2022-09-07] MEDS: predniSONE 20 MG TABLET 40 MG PO (08:28)
[2022-09-07] MEDS: ATORVASTATIN 40 MG TABLET PO (08:28)
[2022-09-07] MEDS: amLODIPine BESYLATE 5 MG TABLET PO (08:29)
--- NOTE | 2022-09-07 09:31 | PM.PNCARD ---
Progress Note: A&P Assessment and Plan (1) Cardiomyopathy: Code(s): I42.9 - Cardiomyopathy, unspecified Status: Acute (2) Non-STEMI (non-ST elevated myocardial infarction): Code(s): I21.4 - Non-ST elevation (NSTEMI) myocardial infarction Status: Acute (3) Heart failure with reduced ejection fraction: Code(s): I50.20 - Unspecified systolic (congestive) heart failure Status: Acute Plan 82-year-old man with coronary and peripheral vascular disease presents with chest pain and dyspnea he has significant left ventricular systolic dysfunction demonstrated earlier this year by echo. His troponin rise however this time is quite significant and we will perform a follow-up angiogram later this afternoon. He does have a normal pulse in the left femoral so hopefully this will be a successful access site for angiography. Further recommendations of course will be forthcoming following completion of his angiogram Woo Nguyen MD [facility] Subjective Date/time seen: Date of service: 09/07/22 09:31 Interval history: Follow-up visit in this 82-year-old man with: Coronary and peripheral vascular disease entering the hospital yesterday with dyspnea and chest pain. He has had a significant troponin rise indicating evidence of acute NE. chest pain is over with now and he feels relatively well this morning. Discuss the option with this patient of follow-up angiography. He is agreeable and will plan for that this afternoon. Exam Const: General: comfortable and no acute distress Other: Elderly gentleman seated at the bedside comfortable offering no complaints this morning HENMT: Mouth: Yes moist mucous membranes Eyes: Sclera: sclerae normal Pupils: Equal, round and reactive pupils present Neck: Neck: supple and no JVD Other: No carotid bruits are audible Resp: Auscultation: clear to auscultation bilaterally Other: Breath sounds diminished in both lung duran Cardio: Rate: regular rate Rhythm: regular rhythm Other: Soft systolic murmur does not radiate from the left sternal border GI: GI Palp: Yes Soft to palpation Auscultation: normal bowel sounds Skin: General skin exam: normal color Neuro: Other: Alert and oriented x3 Extrem: Other: Scar from previous surgical revascularization in the right lower extremity. Objective Data Vital Signs Vital Signs: Vital Signs - 24 hr 09/06/22 12:00 09/06/22 10:00 09/06/22 12:00 Temperature 36.2 C L Pulse Rate 80 75 83 Respiratory Rate 16 Blood Pressure 183/54 H Pulse Oximetry 96 Oxygen Delivery Oxygen Flow Rate 09/06/22 12:00 09/06/22 14:00 09/06/22 16:00 Temperature Pulse Rate 75 84 78 Respiratory Rate 16 Blood Pressure Pulse Oximetry 98 Oxygen Delivery Room Air Oxygen Flow Rate 09/06/22 16:00 09/06/22 16:00 09/06/22 14:02 Temperature 36.9 C Pulse Rate 75 75 72 Respiratory Rate 16 16 20 Blood Pressure 158/62 H Pulse Oximetry 98 98 Oxygen Delivery Room Air Oxygen Flow Rate 09/06/22 14:10 09/06/22 18:06 09/06/22 18:00 Temperature Pulse Rate 73 79 78 Respiratory Rate 20 Blood Pressure Pulse Oximetry 96 Oxygen Delivery Nasal Cannula Oxygen Flow Rate 2 09/06/22 20:35 09/06/22 20:00 09/06/22 20:00 Temperature 36.8 C Pulse Rate 74 80 83 Respiratory Rate 18 20 Blood Pressure 168/54 H Pulse Oximetry 99 Oxygen Delivery Oxygen Flow Rate 09/06/22 20:00 09/06/22 22:00 09/06/22 23:53 Temperature 36.4 C Pulse Rate 76 76 Respiratory Rate 20 Blood Pressure 156/68 H Pulse Oximetry 100 Oxygen Delivery Room Air Oxygen Flow Rate 09/07/22 00:00 09/07/22 00:00 09/07/22 02:00 Temperature Pulse Rate 83 83 71 Respiratory Rate 20 Blood Pressure Pulse Oximetry 100 Oxygen Delivery Room Air Oxygen Flow Rate 09/07/22 04:00 09/07/22 04:00 09/07/22 04:00 Temperature 36.6 C Pulse Rate 65 76 76 Resp
--- NOTE | 2022-09-07 11:42 | WPDCARDPROC ---
Cardiac Cath Procedure Note Date of procedure:: 09/07/22 Performing physician:: Woo Nguyen MD Indication:: non ST-elevation [place] Brief clinical history:: this is an 82-year-old man who reports a prior history of PCI which was not done at this hospital. He has been to this hospital couple of times this year with shortness of breath. The noninvasive evaluation done several months ago indicated evidence of previous infarction with low ejection fraction. There was no significant ischemia. On the current admission he has been had also have some chest pain with his dyspnea the troponin william significantly up to 20. In this setting angiography has been recommended. He has a chronic left bundle branch block and also chronic kidney disease so I will forego left ventriculography. Procedure Procedure performed:: Coronary angiogram left-sided hemodynamics Sedation/Medication given:: fentanyl 25 mg Versed 2 mg case start time 11 20 a.m. case end time 11:35 a.m. sedation provided byTere James RN, trained observer Access site:: left femoral artery Estimated blood loss:: 25 cc Procedure note:: patient was brought to the cardiac catheterization lab in the postabsorptive state where the femoral triangles were prepared and draped in the normal fashion. Anesthesia was provided with 1% lidocaine in the left groin. Using the modified Seldinger technique the femoral artery was punctured and a 5 [place] vascular sheath was placed. After this left heart catheterization carried out. I used a 5 [place] FL4 catheter to engage and inject the left coronary artery in multiple projections. I then used a 5 [place] JR4 catheter to engage and inject the right coronary artery in orthogonal projections. Following this I used a 5 [place] angled pigtail catheter to document left-sided hemodynamics. Because of his chronic kidney disease and the desire to minimize contrast exposure I did not perform a left ventriculogram. The procedure was then terminated following review the cineangiograms and he was taken to the holding area for manual sheath removal. There were no procedural complications was no evidence of a hematoma at the left groin upon leaving the manager cardiac cath. Findings:: Hemodynamics: Central aortic pressure is 192 over 70 left ventricle 192 over 80 end-diastolic pressure 28. There was no on pullback across the aortic valve. The left main coronary artery is medium in caliber and is free of disease. The left anterior descending a relatively small and diffusely diseased vessel. It gives rise to a proximal large diagonal and then a moderate-size septal perforating complex. A shortest after the origin of these vessels the LAD appears to be totally occluded with reconstitution by antegrade bridging collaterals which fill the vessel all way down to the apex. The large diagonal branch appears to have an ostial stenosis of 90%. There is there is DANE 3 flow in this vessel. The circumflex is a moderate caliber artery that is dominant to the posterior circulation. The circumflex rise to 2 marginal branches, a posterior branch and then a left PDA. Circumflex has mild diffuse luminal irregularities and no significant lesions are seen. The right coronary artery small and non dominant providing RV branches and is free of disease. In no angiographic projection was there any evidence of a previously deployed coronary stent device. Conclusion:: 1. Left coronary dominant circulation with coronary disease with what appears to be chronic total occlusion of the mid LAD reconstitutes via antegrade bridging collaterals. There is high-grade stenosis in the origin of the major diagonal branch prior to this occlusion. 2. Dominant circumflex with no significant disease 3. non dominant right coronary with no significant disease 4. high LVEDP and noninvasive evidence low ejection fraction. LV g was not performed in effort to minimize co
--- NOTE | 2022-09-07 11:47 | PM.IMPN ---
Progress Note: A&P Assessment and Plan (1) Non-STEMI (non-ST elevated myocardial infarction): Code(s): I21.4 - Non-ST elevation (NSTEMI) myocardial infarction Status: Acute Assessment and Plan: plan for cath today (2) Shortness of breath: Code(s): R06.02 - Shortness of breath Status: Acute Assessment and Plan: possible pneumonia. Continue antibiotics. Continue prednisone as well for bronchitis. Continue inhalers (3) Hypertension: Code(s): I10 - Essential (primary) hypertension Status: Acute Assessment and Plan: monitor blood pressure (4) Acute on chronic renal insufficiency: Code(s): N28.9 - Disorder of kidney and ureter, unspecified; N18.9 - Chronic kidney disease, unspecified Status: Acute Assessment and Plan: monitor kidney function (5) Heart failure with reduced ejection fraction: Code(s): I50.20 - Unspecified systolic (congestive) heart failure Status: Acute (6) COPD (chronic obstructive pulmonary disease): Code(s): J44.9 - Chronic obstructive pulmonary disease, unspecified Status: Acute Assessment and Plan: continue prednisone (7) Tobacco abuse: Code(s): Z72.0 - Tobacco use Status: Acute (8) Hypokalemia: Code(s): E87.6 - Hypokalemia Status: Acute Subjective Date/time seen: 09/07/22 11:47 no new complaints cath planned for today Exam Narrative: General: alert and oriented Psych: appropriate mood nad affect Eyes: PERRLA Neck: Trachea midline, no new lesions Skin: no changes Lungs: CTA Cardiac: Normal S1,S2, no MGR ABD: soft, nd, nt, nbs Ext: no new lesions, no cce Vasc: Pulses intact Eyes: Other: Extraocular motions intact. Resp: Other: Respirations are nonlabored and he is speaking in full sentences. Lung sounds diminished throughout with faint end expiratory wheezes. Objective Data Vital Signs Vital Signs: Vital Signs - 24 hr 09/06/22 12:00 09/06/22 12:00 09/06/22 12:00 Temperature 97.2 F L Pulse Rate 80 83 75 Respiratory Rate 16 16 Blood Pressure 183/54 H Pulse Oximetry 96 98 Oxygen Delivery Room Air Oxygen Flow Rate 09/06/22 14:00 09/06/22 16:00 09/06/22 16:00 Temperature Pulse Rate 84 78 75 Respiratory Rate 16 Blood Pressure Pulse Oximetry 98 Oxygen Delivery Room Air Oxygen Flow Rate 09/06/22 16:00 09/06/22 14:02 09/06/22 14:10 Temperature 98.5 F Pulse Rate 75 72 73 Respiratory Rate 16 20 20 Blood Pressure 158/62 H Pulse Oximetry 98 Oxygen Delivery Oxygen Flow Rate 09/06/22 18:06 09/06/22 18:00 09/06/22 20:35 Temperature Pulse Rate 79 78 74 Respiratory Rate 18 Blood Pressure Pulse Oximetry 96 Oxygen Delivery Nasal Cannula Oxygen Flow Rate 2 09/06/22 20:00 09/06/22 20:00 09/06/22 20:00 Temperature 98.3 F Pulse Rate 80 83 Respiratory Rate 20 Blood Pressure 168/54 H Pulse Oximetry 99 Oxygen Delivery Room Air Oxygen Flow Rate 09/06/22 22:00 09/06/22 23:53 09/07/22 00:00 Temperature 97.6 F Pulse Rate 76 76 83 Respiratory Rate 20 Blood Pressure 156/68 H Pulse Oximetry 100 Oxygen Delivery Oxygen Flow Rate 09/07/22 00:00 09/07/22 02:00 09/07/22 04:00 Temperature 97.8 F Pulse Rate 83 71 65 Respiratory Rate 20 20 Blood Pressure 147/67 H Pulse Oximetry 100 100 Oxygen Delivery Room Air Oxygen Flow Rate 09/07/22 04:00 09/07/22 04:00 09/06/22 20:52 Temperature Pulse Rate 76 76 76 Respiratory Rate 20 Blood Pressure Pulse Oximetry 100 100 Oxygen Delivery Room Air Room Air Oxygen Flow Rate 09/06/22 20:52 09/07/22 06:00 09/07/22 08:26 Temperature Pulse Rate 76 71 65 Respiratory Rate 20 18 Blood Pressure Pulse Oximetry Oxygen Delivery Oxygen Flow Rate 09/07/22 08:26 09/07/22 08:00 09/07/22 08:43 Temperature 98.6 F Pulse Rate 72 68 Respiratory Rate
[2022-09-07] MEDS: SODIUM CHLORIDE 0.9% IV 1,000 ML 125 ML IV CONT (13:00)
[2022-09-07] MEDS: METOPROLOL SUCCINATE EXT REL 25 MG TABCR PO (16:52)
[2022-09-08] VITALS (19 sets, daily range): BP systolic 150–186; BP diastolic 54–71; PULSE 69–84; RESP 16–20; TEMP 36.2–36.7; O2SAT 94–100
[2022-09-08] MEDS: ALBUTEROL SULFATE NEB 2.5 MG/3 ML INH 5 MG INHALATION ×4 (01:59→19:19)
[2022-09-08] MEDS: IPRATROPIUM BR 0.02% INH SOLN 0.5 MG/2.5 ML VIAL INHALATION ×4 (01:59→19:19)
[2022-09-08] MEDS: LEVOTHYROXINE SODIUM 75 MCG TABLET PO (05:38)
[2022-09-08] MEDS: ASPIRIN 81 MG ENTERIC TABLET PO (08:18)
[2022-09-08] MEDS: CYANOCOBALAMIN 1,000 MCG TABLET 2000 MCG BY MOUTH (08:18)
[2022-09-08] MEDS: ATORVASTATIN 40 MG TABLET PO (08:18)
[2022-09-08] MEDS: CYANOCOBALAMIN 500 MCG TABLET BY MOUTH (08:18)
[2022-09-08] MEDS: predniSONE 20 MG TABLET 40 MG PO (08:18)
[2022-09-08] MEDS: METOPROLOL SUCCINATE EXT REL 25 MG TABCR PO (08:18)
[2022-09-08] MEDS: LORATADINE 10 MG TABLET PO (08:19)
[2022-09-08] MEDS: guaiFENesin 12 HR 600 MG TABCR PO (08:20)
[2022-09-08] MEDS: amLODIPine BESYLATE 5 MG TABLET PO (08:20)
[2022-09-08] MEDS: CLOPIDOGREL BISULFATE 75 MG TABLET PO (08:20)
[2022-09-08 08:27] LABS: Basophils Percent Auto 0.1 % (0.2-1.2); Eosinophils Percent Auto 0.1 % (0-4.4); Hematocrit 34.1 % (42.0-52.0); Hemoglobin 10.8 g/dL (14.0-18.0); Immature Granulocyte Absolute 0.11 K/mm3 (0.00-0.031); Immature Granulocyte Percent A 0.8 % (0-0.5); Lymphocytes Absolute Auto 1.59 K/mm3 (0.9-3.2); Lymphocytes Percent Auto 11.1 % (18.3-44.2); Mean Corpuscular HGB Conc 31.7 g/dl (32-36); Mean Corpuscular Hemoglobin 29.2 pg (26-34); Mean Corpuscular Volume 92.2 fl (80-100); Monocytes Absolute Auto 1.4 K/mm3 (0.1-0.6); Monocytes Percent Auto 9.5 % (2.6-8.5); Neutrophils Absolute Auto 11.2 K/mm3 (1.3-6.7); Neutrophils Percent Auto 78.4 % (45.5-73.1); Platelet Count Result 200 k/mm3 (150-375); Red Cell Distribution Width 16.1 % (11.5-14.5); White Blood Count 14.3 K/mm3 (4.5-10.0)
[2022-09-08 08:36] LABS: Anion Gap 6 mmol/L (8-16); Blood Urea Nitrogen 37 mg/dL (9-20); Carbon Dioxide 26 mmol/L (22-30); Chloride 105 mmol/L (98-107); Estimated CRCL calculation 28 ml/min; Estimated Glomerular Filt Rate 36; Glucose 94 mg/dL (65-110); Potassium 4.1 mmol/L (3.4-5.0); Sodium 137 mmol/L (137-145)
--- NOTE | 2022-09-08 12:36 | PM.IMPN ---
Progress Note: A&P Assessment and Plan (1) Non-STEMI (non-ST elevated myocardial infarction): Code(s): I21.4 - Non-ST elevation (NSTEMI) myocardial infarction Status: Acute Assessment and Plan: plan for cath today (2) Shortness of breath: Code(s): R06.02 - Shortness of breath Status: Acute Assessment and Plan: possible pneumonia. Continue antibiotics. Continue prednisone as well for bronchitis. Continue inhalers (3) Hypertension: Code(s): I10 - Essential (primary) hypertension Status: Acute Assessment and Plan: monitor blood pressure adjust meds prior to dc (4) Acute on chronic renal insufficiency: Code(s): N28.9 - Disorder of kidney and ureter, unspecified; N18.9 - Chronic kidney disease, unspecified Status: Acute Assessment and Plan: monitor kidney function (5) Heart failure with reduced ejection fraction: Code(s): I50.20 - Unspecified systolic (congestive) heart failure Status: Acute Assessment and Plan: spoke w cardiology need better bp control - meds adjusted continue entresto dc lisinopril continue asa/plavix dc eliquis if bp better can be dc tomorrow (6) COPD (chronic obstructive pulmonary disease): Code(s): J44.9 - Chronic obstructive pulmonary disease, unspecified Status: Acute Assessment and Plan: continue prednisone breathing much improved (7) Tobacco abuse: Code(s): Z72.0 - Tobacco use Status: Acute (8) Hypokalemia: Code(s): E87.6 - Hypokalemia Status: Acute Subjective Date/time seen: 09/08/22 12:36 no new complaints Exam Narrative: General: alert and oriented Psych: appropriate mood nad affect Eyes: PERRLA Neck: Trachea midline, no new lesions Skin: no changes Lungs: CTA Cardiac: Normal S1,S2, no MGR ABD: soft, nd, nt, nbs Ext: no new lesions, no cce Vasc: Pulses intact Objective Data Vital Signs Vital Signs: Vital Signs - 24 hr 09/07/22 12:40 09/07/22 12:45 09/07/22 13:00 Temperature Pulse Rate 70 71 69 Respiratory Rate 12 14 14 Blood Pressure 171/69 H 166/76 H 170/64 H Pulse Oximetry 96 96 95 Oxygen Delivery Room Air Room Air Room Air 09/07/22 13:15 09/07/22 13:30 09/07/22 14:45 Temperature Pulse Rate 69 75 82 Respiratory Rate 12 14 18 Blood Pressure 169/65 H 178/65 H Pulse Oximetry 96 94 Oxygen Delivery Room Air Room Air 09/07/22 14:15 09/07/22 14:45 09/07/22 14:00 Temperature 98.2 F 98.3 F Pulse Rate 84 77 81 Respiratory Rate 14 16 Blood Pressure 185/70 H 168/56 H Pulse Oximetry 98 100 Oxygen Delivery 09/07/22 15:45 09/07/22 16:00 09/07/22 16:52 Temperature 98.2 F 98.2 F Pulse Rate 81 81 94 Respiratory Rate 20 20 Blood Pressure 161/46 H 161/46 H Pulse Oximetry 95 95 Oxygen Delivery 09/07/22 16:58 09/07/22 13:45 09/07/22 16:00 Temperature 98.8 F Pulse Rate 95 71 Respiratory Rate 16 16 Blood Pressure 180/67 H 175/69 H Pulse Oximetry 97 96 Oxygen Delivery Room Air Room Air 09/07/22 18:00 09/07/22 16:00 09/07/22 18:00 Temperature 98.7 F Pulse Rate 83 76 84 Respiratory Rate 18 Blood Pressure 178/65 H Pulse Oximetry 96 Oxygen Delivery 09/07/22 19:00 09/07/22 19:50 09/07/22 19:50 Temperature 98.9 F Pulse Rate 83 76 76 Respiratory Rate 16 16 Blood Pressure 161/60 H Pulse Oximetry 95 95 Oxygen Delivery Room Air 09/07/22 20:00 09/07/22 20:00 09/07/22 20:00 Temperature 97.6 F Pulse Rate 72 74 73 Respiratory Rate 16 18 Blood Pressure 161/48 H Pulse Oximetry 97 Oxygen Delivery 09/07/22 20:00 09/07/22 22:00 09/07/22 23:44 Temperature 97.8 F Pulse Rate 74 85 72 Respiratory Rate 18 18 Blood Pressure 164/73 H Pulse Oximetry 97 97 Oxygen Delivery Room Air 09/08/22 00:00 09/08/22 00:00 09/08/22 01:55 Temperature Pulse Rate 77 77 72 Respiratory Rate 18 16 Blood Pressure Pulse Oximetry 97
--- NOTE | 2022-09-08 12:46 | PM.PNCARD ---
Progress Note: A&P Assessment and Plan (1) Cardiomyopathy: Code(s): I42.9 - Cardiomyopathy, unspecified Status: Acute (2) Non-STEMI (non-ST elevated myocardial infarction): Code(s): I21.4 - Non-ST elevation (NSTEMI) myocardial infarction Status: Acute (3) Heart failure with reduced ejection fraction: Code(s): I50.20 - Unspecified systolic (congestive) heart failure Status: Acute Plan At this time we will recommend guideline directed medical therapy for severe ischemic cardiomyopathy.? Continue Toprol. Last dose of Lisinopril was 09/07 @ 8:30AM. Will allow a 36 hour washout period for Entresto. Will start Entresto at 9PM 09/08. Continue Amlodipine 5mg for BP control. Continue statin. Patient was on Eliquis 2.5mg at home - I do not see a history of AFIB, DVT/PE on his chart. It may have been started for his history of severe PAD. Given his NSTEMI, would discontinue Eliquis and favor ASA + Plavix. If patient tolerates Entresto okay and has improved blood pressures, possible discharge tomorrow. Will need outpatient Cardiology follow-up. Time Spent With Patient Time with patient: 15 - 25 minutes Subjective Date/time seen: 09/08/22 12:46 Interval history: Reason for visit: Heart failure, CAD, elevated troponins. 09/07/2022: Coronary and peripheral vascular disease entering the hospital yesterday with dyspnea and chest pain.? He has had a significant troponin rise indicating evidence of acute MA. chest pain is over with now and he feels relatively well this morning.? Discuss the option with this patient of follow-up angiography.? He is agreeable and will plan for that this afternoon.? Cardiac cath showed: Left coronary dominant circulation with coronary disease with what appears to be chronic total occlusion of the mid LAD reconstitutes via antegrade bridging collaterals.? There is high-grade stenosis in the origin of the major diagonal branch prior to this occlusion. Dominant circumflex with no significant disease non dominant right coronary with no significant disease high LVEDP and noninvasive evidence low ejection fraction.? LV g was not performed in effort to minimize contrast exposure patient will be started on optimal medical therapy for severe ischemic cardiomyopathy.? Consideration may be given to viability testing to determine if he would benefit from VISITING [employer] intervention with the LAD and or origin of the major diagonal branch.? 09/08/2022: Patient reports feeling well this AM. Denies any cardiac symptoms. Review of Systems Review of Systems: 8-point ROS obtained. Negative, unless stated in HPI. Exam Const: General: comfortable and no acute distress HENMT: Mouth: Yes moist mucous membranes Eyes: Sclera: sclerae normal Neck: Neck: supple and no JVD Other: No carotid bruits are audible Resp: Auscultation: clear to auscultation bilaterally and diminished lung sounds Cardio: Rate: regular rate Rhythm: regular rhythm GI: GI Palp: Yes Soft to palpation Auscultation: normal bowel sounds Skin: General skin exam: normal color Neuro: Speech: normal speech Other: Alert and oriented x3 Psych: Mental Status: mental status grossly normal Objective Data Vital Signs Vital Signs: Vital Signs - 24 hr 09/07/22 13:00 09/07/22 13:15 09/07/22 13:30 Temperature Pulse Rate 69 69 75 Respiratory Rate 14 12 14 Blood Pressure 170/64 H 169/65 H 178/65 H Pulse Oximetry 95 96 94 Oxygen Delivery Room Air Room Air Room Air 09/07/22 14:45 09/07/22 14:15 09/07/22 14:45 Temperature 36.8 C 36.8 C Pulse Rate 82 84 77 Respiratory Rate 18 14 16 Blood Pressure 185/70 H 168/56 H Pulse Oximetry 98 100 Oxygen Delivery 09/07/22 14:00 09/07/22 15:45 09/07/22 16:00 Temperature 36.8 C 36.8 C Pulse Rate 81 81 81 Respiratory Rate 20 20 Blood Pressure 161/46 H 161/46 H Pulse Oximetry 95 95 Oxygen Delivery 09/07/22 16:52 09/07/22 16:58 09/07/22 13:45 Temperature
[2022-09-08] MEDS: SACUBITRIL/VALSARTAN 24-26 MG TABLET 1 TAB PO (20:21)
[2022-09-09] VITALS (8 sets, daily range): BP systolic 153–184; BP diastolic 58–76; PULSE 57–88; RESP 16–18; TEMP 36.4–37; O2SAT 96–98
[2022-09-09] MEDS: LEVOTHYROXINE SODIUM 75 MCG TABLET PO (04:59)
--- NOTE | 2022-09-09 07:59 | PM.DS ---
DS: Admitting Diagnosis Discharge Date September 09, 2022 Admitting Diagnosis chest pain and shortness of breath DS: Discharge Diagnosis Discharge Diagnosis (1) Non-STEMI (non-ST elevated myocardial infarction): Code(s): I21.4 - Non-ST elevation (NSTEMI) myocardial infarction Status: Acute Assessment and Plan: plan for cath today (2) Shortness of breath: Code(s): R06.02 - Shortness of breath Status: Acute Assessment and Plan: possible pneumonia. Continue antibiotics. Continue prednisone as well for bronchitis. Continue inhalers (3) Hypertension: Code(s): I10 - Essential (primary) hypertension Status: Acute Assessment and Plan: monitor blood pressure adjust meds prior to dc (4) Acute on chronic renal insufficiency: Code(s): N28.9 - Disorder of kidney and ureter, unspecified; N18.9 - Chronic kidney disease, unspecified Status: Acute Assessment and Plan: monitor kidney function (5) Heart failure with reduced ejection fraction: Code(s): I50.20 - Unspecified systolic (congestive) heart failure Status: Acute Assessment and Plan: spoke w cardiology need better bp control - meds adjusted continue entresto dc lisinopril continue asa/plavix dc eliquis if bp better can be dc tomorrow (6) COPD (chronic obstructive pulmonary disease): Code(s): J44.9 - Chronic obstructive pulmonary disease, unspecified Status: Acute Assessment and Plan: continue prednisone breathing much improved (7) Tobacco abuse: Code(s): Z72.0 - Tobacco use Status: Acute (8) Hypokalemia: Code(s): E87.6 - Hypokalemia Status: Acute DS: Summary Hospital Course Hospital Course: 82-year-old male past medical history significant for CAD and severe peripheral arterial disease with RLE bypass, history of severe LV systolic dysfunction EF 20-25% insert carotid occlusion,? and history of left heart catheterization 2005 having been performed to the brachial approach, chronic kidney disease, COPD, chronic heart failure with reduced ejection fraction who was recently discharged 09/02/2022 after treatment for acute respiratory failure mild heart failure reduced ejection fraction, right lower lobe pneumonia, acute kidney injury treated with antibiotics now returning once again with complaints of shortness of breath and chest pain.? Patient states after discharge recently he felt reasonably well however within 48 hours awoke from sleep more suddenly short of breath with anterior chest tightness which lingered a with activity with progressive shortness of breath for which he called EMS.? He was given intravenous Solu-Medrol, nebulizer treatments and in fact chest pain had resolved prior to arrival without recurrence.? Initial troponin 0.231, 11.4, 33.0, and subsequent 20.6.? Chronic left bundle-branch block on EKG.? Patient feels much better and states he feels like running around.? He states he is at his baseline and feels great.? He apparently has been taking his Eliquis 2.5 mg once daily with last dose morning of 09/04/2022.? Patient was subsequently started on a heparin drip due to significant troponin elevation.? He has been chest pain-free since admission.? He states he had mild swelling in his feet on 1 occasion but otherwise has not had any issues in this regard.? Denies palpitation, near-syncope or syncope no recent falls or bleeding complications.? Occasional cough no fevers or chills nausea vomiting.? Patient quite wheezy at presentation which is also improved.? Patient was noted to be severely hypertensive 225/82 mm Hg at presentation.? While this has improved he remains hypertensive.? He had a significant leukocytosis at presentation 16.4 increased to 23.2? With an elevation in his lactic acid initially 3.4. creatinine was 2.2 with BUN peak at 35.? AST significantly elevated at 110.? He is being treated with antibiotics and prednisone for
[2022-09-09] MEDS: CYANOCOBALAMIN 1,000 MCG TABLET 2000 MCG BY MOUTH (08:12)
[2022-09-09] MEDS: CYANOCOBALAMIN 500 MCG TABLET BY MOUTH (08:13)
[2022-09-09] MEDS: ATORVASTATIN 40 MG TABLET PO (08:13)
[2022-09-09] MEDS: predniSONE 20 MG TABLET 40 MG PO (08:13)
[2022-09-09] MEDS: ASPIRIN 81 MG ENTERIC TABLET PO (08:13)
[2022-09-09] MEDS: amLODIPine BESYLATE 5 MG TABLET PO (08:13)
[2022-09-09] MEDS: CLOPIDOGREL BISULFATE 75 MG TABLET PO (08:13)
[2022-09-09] MEDS: SACUBITRIL/VALSARTAN 24-26 MG TABLET 1 TAB PO (08:13)
[2022-09-09] MEDS: METOPROLOL SUCCINATE EXT REL 25 MG TABCR PO (08:13)
[2022-09-09 09:02] LABS: Basophils Percent Auto 0.1 % (0.2-1.2); Eosinophils Absolute Auto 0.1 K/mm3 (0-0.3); Eosinophils Percent Auto 0.4 % (0-4.4); Hematocrit 34.1 % (42.0-52.0); Hemoglobin 10.7 g/dL (14.0-18.0); Immature Granulocyte Absolute 0.05 K/mm3 (0.00-0.031); Immature Granulocyte Percent A 0.4 % (0-0.5); Lymphocytes Absolute Auto 1.64 K/mm3 (0.9-3.2); Lymphocytes Percent Auto 12.1 % (18.3-44.2); Mean Corpuscular HGB Conc 31.4 g/dl (32-36); Mean Corpuscular Hemoglobin 29.1 pg (26-34); Mean Corpuscular Volume 92.7 fl (80-100); Mean Platelet Volume 11.5 fl (7.4-10.4); Monocytes Percent Auto 7.2 % (2.6-8.5); Neutrophils Absolute Auto 10.8 K/mm3 (1.3-6.7); Neutrophils Percent Auto 79.8 % (45.5-73.1); Platelet Count Result 211 k/mm3 (150-375); Red Blood Count 3.68 M/mm3 (4.6-6.20); White Blood Count 13.6 K/mm3 (4.5-10.0)
[2022-09-09] MEDS: IPRATROPIUM BR 0.02% INH SOLN 0.5 MG/2.5 ML VIAL INHALATION (09:17)
[2022-09-09] MEDS: ALBUTEROL SULFATE NEB 2.5 MG/3 ML INH 5 MG INHALATION (09:17)
[2022-09-09 09:18] LABS: Alanine Aminotransferase 26 U/L (6-50); Albumin Level 3.3 g/dL (3.5-5.1); Alkaline Phosphatase 75 U/L (38-126); Anion Gap 11 mmol/L (8-16); Aspartate Amino Transferase 31 U/L (17-59); Bilirubin,Total 0.4 mg/dL (0.2-1.3); Blood Urea Nitrogen 32 mg/dL (9-20); Carbon Dioxide 23 mmol/L (22-30); Chloride 104 mmol/L (98-107); Estimated CRCL calculation 30 ml/min; Estimated Glomerular Filt Rate 39; Glucose 140 mg/dL (65-110); Potassium 3.9 mmol/L (3.4-5.0); Sodium 138 mmol/L (137-145)
== END 2022-09-09 14:37 | disposition home or self-care (01) | DRG 280 ==
LOC: ANHED 11:23 → ANHIMU 15:09
PROVIDERS: Chiropractor; Internal Medicine Cardiovascular Disease; Physician Assistant; Specialist; Admitting Provider Family Medicine; Emergency Provider Emergency Medicine; PCP Emergency Medicine; Visit Provider Student in an Organized Health Care Education/Training Program
PROC: 4A023N7 Measurement of Cardiac Sampling and Pressure, Left Heart, Percutaneous Approach (ICD-10-PCS; CPT 93452; principal; 2022-09-07 11:30)
DX: I21.4 Non-ST elevation (NSTEMI) myocardial infarction (principal); J18.9 Pneumonia, unspecified organism; J44.0 Chronic obstructive pulmonary disease with (acute) lower respiratory infection; I13.0 Hypertensive heart and chronic kidney disease with heart failure and stage 1 through stage 4 chronic kidney disease, or unspecified chronic kidney disease; I50.22 Chronic systolic (congestive) heart failure; I25.5 Ischemic cardiomyopathy; I25.10 Atherosclerotic heart disease of native coronary artery without angina pectoris; J44.9 Chronic obstructive pulmonary disease, unspecified; D72.829 Elevated white blood cell count, unspecified; D63.1 Anemia in chronic kidney disease; E87.6 Hypokalemia; F17.210 Nicotine dependence, cigarettes, uncomplicated; E11.22 Type 2 diabetes mellitus with diabetic chronic kidney disease; E03.9 Hypothyroidism, unspecified; E11.51 Type 2 diabetes mellitus with diabetic peripheral angiopathy without gangrene; H54.7 Unspecified visual loss; I44.7 Left bundle-branch block, unspecified; I16.0 Hypertensive urgency; J20.9 Acute bronchitis, unspecified; N18.32 Chronic kidney disease, stage 3b; N28.9 Disorder of kidney and ureter, unspecified; Z20.822 Contact with and (suspected) exposure to COVID-19; Z28.21 Immunization not carried out because of patient refusal; Z79.01 Long term (current) use of anticoagulants; Z86.73 Personal history of transient ischemic attack (TIA), and cerebral infarction without residual deficits; Z95.820 Peripheral vascular angioplasty status with implants and grafts; Z98.49 Cataract extraction status, unspecified eye; Z85.820 Personal history of malignant melanoma of skin; Z96.652 Presence of left artificial knee joint; Z66 Do not resuscitate
CPT/HCPCS: 36415; 36600; 71045; 80048; 80053; 82375; 82805; 83050; 83605; 83735; 83880; 84484; 85025; 85027; 85610; 85730; 87040; 93005; 93458; 93970; 94640; 96365; 96366; 96375; 99291; A9270; C1887; C1894; G0378; J0461; J0696; J1644; J2250; J2930; J3010; J7030; J7040; J7512; U0003; U0005

== ENCOUNTER 2023-04-01 11:44 | Outpatient (CLI) | payer MEDICARE, OTHER, SELFPAY ==
--- NOTE | ~2023-04-01 | XR_ITS ---
EXAMINATION: XR chest 2V DATE: 04/01/2023 12:25 INDICATION: Chronic obstructive pulmonary disease. TECHNIQUE: Frontal and lateral views of the chest were obtained. COMPARISON: Chest one view 09/05/2022 FINDINGS: There are lucencies and interstitial opacities in the lungs, consistent with emphysema. The re is no pneumonia, pleural effusion, or pneumothorax. The heart size is normal. Surgical clips overl ie right chest. IMPRESSION: 1. Emphysema. Reviewed, dictated and finalized at location A. IMPRESSION: 1. Emphysema.
[2023-04-01 12:26] LABS: Basophils Absolute Auto 0.1 K/mm3 (0.0-0.1); Basophils Percent Auto 0.6 % (0.2-1.2); Eosinophils Absolute Auto 0.9 K/mm3 (0-0.3); Eosinophils Percent Auto 11.5 % (0-4.4); Hematocrit 37.2 % (42.0-52.0); Hemoglobin 11.7 g/dL (14.0-18.0); Immature Granulocyte Absolute 0.02 K/mm3 (0.00-0.031); Immature Granulocyte Percent A 0.3 % (0-0.5); Lymphocytes Absolute Auto 1.82 K/mm3 (0.9-3.2); Lymphocytes Percent Auto 23.4 % (18.3-44.2); Mean Corpuscular HGB Conc 31.5 g/dl (32-36); Mean Corpuscular Hemoglobin 29.4 pg (26-34); Mean Corpuscular Volume 93.5 fl (80-100); Mean Platelet Volume 11.2 fl (7.4-10.4); Monocytes Absolute Auto 0.8 K/mm3 (0.1-0.6); Monocytes Percent Auto 10.2 % (2.6-8.5); Neutrophils Absolute Auto 4.2 K/mm3 (1.3-6.7); Platelet Count Result 205 k/mm3 (150-375); Red Blood Count 3.98 M/mm3 (4.6-6.20); Red Cell Distribution Width 14.6 % (11.5-14.5); White Blood Count 7.8 K/mm3 (4.5-10.0)
[2023-04-01 12:37] LABS: Alanine Aminotransferase 17 U/L (6-50); Alkaline Phosphatase 68 U/L (38-126); Anion Gap 9 mmol/L (8-16); Aspartate Amino Transferase 32 U/L (17-59); Bilirubin,Total 0.5 mg/dL (0.2-1.3); Blood Urea Nitrogen 30 mg/dL (9-20); Calcium 8.3 mg/dL (8.4-10.2); Carbon Dioxide 22 mmol/L (22-30); Chloride 107 mmol/L (98-107); Estimated Glomerular Filt Rate 32; Glucose 75 mg/dL (65-110); Potassium 3.6 mmol/L (3.4-5.0); Sodium 138 mmol/L (137-145)
== END 2023-04-01 11:45 | disposition home or self-care (01) ==
PROVIDERS: PCP Family Medicine; Visit Provider Physician Assistant
DX: J44.9 Chronic obstructive pulmonary disease, unspecified (principal); D64.9 Anemia, unspecified; I42.9 Cardiomyopathy, unspecified; N18.30 Chronic kidney disease, stage 3 unspecified; J96.01 Acute respiratory failure with hypoxia; J43.9 Emphysema, unspecified
CPT/HCPCS: 36415; 71046; 80053; 85025

== ENCOUNTER 2023-07-16 12:32 | Outpatient (CLI) | payer MEDICARE, OTHER, SELFPAY | END 2023-07-16 12:33 | disposition home or self-care (01) | PROVIDERS: PCP Family Medicine; Visit Provider Physician Assistant | DX: E03.9 Hypothyroidism, unspecified (principal) | CPT/HCPCS: 36415; 84443 ==